=== PATIENT | male | born 1960 | race Caucasian/White ===

== ENCOUNTER 2016-08-15 20:45 | Inpatient (IN) ==
[2016-08-15] MEDS ORDERED: 0.9 % Sodium Chloride 1,000 ML IVC ONE (21:02)
--- NOTE | 2016-08-15 21:07 | Emergency Department Note ---
Overdose - [facility] Narrative Medical decision making narrative: 56-year-old male admitted for baclofen overdose due to concerns for worsening bradycardia or hypoxia given his large amount of baclofen ingested, will admit to stepdown 2N for monitoring. - Differential Diagnosis Likely: cocaine intoxication, suicide attempt by multiple drug overdose, intentional overdose, accidental drug ingestion - Medical Records Medical records reviewed: Yes I reviewed the patient's medical records. - Lab Data Lab results reviewed: Yes I reviewed the patient's lab results. Result diagrams: 08/15/16 21:34 08/15/16 21:34 Lab Results 08/15/16 08/15/16 08/15/16 Range/Units 21:34 21:34 23:21 WBC 11.6 H (4.3-11.1) K/mcL RBC 4.77 (4.19-5.50) M/mcL Hgb 13.9 (12.9-16.9) g/dL Hct 41.7 (37.5-50.1) % MCV 87.4 (83.0-100.0) fL MCH 29.1 (28.0-33.3) pg MCHC 33.3 (31.6-35.5) g/dL RDW 14.1 (11.5-14.5) % Plt Count 334 (140-400) K/mcL MPV 9.6 (9.4-12.4) fL Immature Gran % 0.3 (0-4) % Seg Neutrophils % 66.9 % Lymphocytes % 22.1 % Monocytes % 9.3 % Eosinophils % 1.0 % Basophils % 0.4 % Neutrophils # 7.7 (1.6-8.9) K/mcL Lymphocytes # 2.6 (0.6-4.6) K/mcL Monocytes # 1.1 (0.0-1.3) K/mcL Eosinophils # 0.1 (0.0-0.6) K/mcL Basophils # 0.1 (0.0-0.2) K/mcL Immature Plt Fraction 3.2 (1.1-6.1) % Sodium 136 (136-145) mEq/L Potassium 4.3 (3.5-4.5) mEq/L Chloride 106 (98-109) mEq/L Carbon Dioxide 19 (19-29) mEq/L BUN 36 H (8-26) mg/dL Creatinine 1.38 H (0.72-1.25) mg/dL Est GFR ( Amer) > 60 (> 60) Est GFR (Non-Af Amer) 53 L (> 60) BUN/Creatinine Ratio 26 (6-26) Glucose 195 H (70-99) mg/dL Calculated Osmolality 296 (280-300) Calcium 8.9 (8.6-10.8) mg/dL Total Bilirubin 0.4 (0.2-1.2) mg/dL Direct Bilirubin 0.2 (0.0-0.5) mg/dL Indirect Bilirubin 0.2 (0.0-1.2) mg/dL AST 9 (5-34) Units/L ALT 14 (0-55) Units/L Alkaline Phosphatase 73 (38-126) Units/L Serum Total Protein 7.8 (6.0-8.3) g/dL Albumin 3.8 (3.5-5.0) g/dL Globulin 4.0 H (2.4-3.5) g/dL Albumin/Globulin Ratio 1.0 L (1.1-2.2) Urine Color Yellow (Yellow) Urine Clarity Clear (Clear) Urine pH 6.0 (5.0-8.0) pH Units Ur Specific [place] 1.030 H (1.010-1.025) Urine Protein Negative (Neg-Trace) mg/dL Urine Glucose (UA) >=1000 H (Normal) mg/dL Urine Ketones Negative (Negative) mg/dL Urine Blood Negative (Negative) Urine Nitrite Negative (Negative) Urine Bilirubin Negative (Negative) Urine Urobilinogen Normal (Normal) mg/dL Ur Leukocyte Esterase Negative (Negative) Salicylates < 5.0 L (15-30) mg/dL Urine Opiates Screen (Dxlkds=168) ng/mL Acetaminophen < 1.0 L (10-30) mcg/mL Ur Barbiturates Screen (Cddrdk=514) ng/mL Ur Phencyclidine Scrn (Cutoff=25) ng/mL Ur Amphetamines Screen (Tsryux=6337) ng/mL U Benzodiazepines Scrn (Ahtjkn=999) ng/mL Urine Cocaine Screen (Cutoff= 300) ng/mL U Marijuana (THC) Screen (Cutoff = 50) ng/mL Ethyl Alcohol < 10 (0-10) mg/dL 08/15/16 Range/Units 23:21 WBC (4.3-11.1) K/mcL RBC (4.19-5.50) M/mcL Hgb (12.9-16.9) g/dL Hct (37.5-50.1) % MCV (83.0-100.0) fL MCH (28.0-33.3) pg MCHC (31.6-35.5) g/dL RDW (11.5-14.5) % Plt Count (140-400) K/mcL MPV (9.4-12.4) fL Immature Gran % (0-4) % Seg Neutrophils % % Lymphocytes % % Monocytes % % Eosinophils % % Basophils % % Neutrophils # (1.6-8.9) K/mcL Lymphocytes # (0.6-4.6) K/mcL Monocytes # (0.0-1.3) K/mcL Eosinophils # (0.0-0.6) K/mcL Basophils # (0.0-0.2) K/mcL Immature Plt Fraction (1.1-6.1) % Sodium (136-145) mEq/L Potassium (3.5-4.5) mEq/L Chloride (98-109) mEq/L Carbon Dioxide (19-29) mEq/L BUN (8-26) mg/dL Creatinine (0.72-1.25) mg/dL Est GFR ( Amer) (> 60) Est GFR (Non-Af Amer) (> 60) BUN/Creatinine Ratio (6-26) Glucose (70-99) mg/dL Calculated Osmolality (280-300) Calcium (8.6-10.8) mg/dL Total Bilirubin (0.2-1.2) mg/dL Direct Bilirubin (0.0-0.5) mg/dL Indirect Bilirubin (0.0-1.2) mg/dL AST (5-34) Units/L ALT (0-55) Units/L Alkaline Phosphatase (38-126) Units/L Serum Total Protein (6.0-8.3) g/dL Albumin (3.5-5.0) g/dL Globulin (2.4-3.5) g/dL Albumin/Globulin Ratio (1.1-2.2) Urine Color (Yellow) Urine Clarity (Clear) Urine pH (5.0-8.0) pH Units Ur Specific [place] (1.010-1.025) Urine Protein (Neg-Trace) mg/dL Urine Glucose (UA) (Normal) mg/dL Urine Ketones (Negative) mg/dL Urine Blood (Negative) Urine Nitrite (Negative) Urine Bilirubin (Negative) Urine Urobilinogen (Normal) mg/dL Ur Leukocyte Esterase (Negative) Salicylates (15-30) mg/dL Urine Opiates Screen Negative (Yowbqg=009) ng/mL Acetaminophen (10-30) mcg/mL Ur Barbiturates Screen Negative (Pihilq=494) ng/mL Ur Phencyclidine Scrn Negative (Cutoff=25) ng/mL Ur Amphetamines Screen Negative (Ppzfwg=6631) ng/mL U Benzodiazepines Scrn Negative (Oxwway=319) ng/mL Urine Cocaine Screen Positive H (Cutoff= 300) ng/mL U Marijuana (THC) Screen Negative (Cutoff = 50) ng/mL Ethyl Alcohol (0-10) mg/dL - Radiology Data Radiology results reviewed: Yes I reviewed the patient's radiology results. - EKG Data EKG attestation: Yes I reviewed and interpreted this EKG. EKG shows normal: sinus rhythm Rate: normal (Rate 99 bpm NV 149 QRS [address] segment elevations or depressions normal QRS and QT segments) Interpretation: no acute changes, unchanged when compared to prior tracing (date ) - Core Measures AMI Core Measures Followed: No Measure Exclusions: contraindicated Overdose HPI - General Chief Complaint: ED Psychiatric Symptoms Stated Complaint: SI Time Seen by Provider: 08/15/16 20:52 Source: patient, EMS Limitations: no limitations Nursing Notes Reviewed: Yes Vital Signs Reviewed: Yes - History of Present Illness HPI Narrative: 56-year-old male with intentional ingestion of baclofen he took 43 pills 20 mg strength baclofen that were prescribed by , had previous suicidal thoughts but is never been evaluated by one A before, currently had suicidal ideation finally acted on his plans. After about half an hour he called EMS and reported that he had overdosed. He has some mild nausea but no other symptoms. Denies chest pain abdominal pain, shortness of breath. He does have chronic aches and pains for which she was prescribed baclofen and his right arm and left leg. These are stable. Pt Subjective Complaint: intentional overdose Onset (ago): hour(s) (1hr [employer]END[employer]) Intent: suicide attempt How Overdose Was Discovered: called 911 Associated symptoms: depression Treatments Prior to Arrival: none - Related Data Home Medications Medication Instructions Recorded Confirmed Baclofen 20 mg PO TID 08/30/15 09/30/15 Canagliflozin [Invokana] 300 mg PO DAILY 08/30/15 09/30/15 Cyanocobalamin (Vitamin B-12) 100 mcg PO DAILY 08/30/15 09/30/15 [Vitamin B-12] Ferrous Sulfate 325 mg PO BIDWM 08/30/15 09/30/15 Furosemide [Lasix] 20 mg PO DAILY 08/30/15 09/30/15 GlipiZIDE XL (24 HR) [Glucotrol XL] 10 mg PO DAILY 08/30/15 09/30/15 Lisinopril [Zestril] 10 mg PO DAILY 08/30/15 09/30/15 Magnesium Oxide [Magnesium] 400 mg PO DAILY 08/30/15 09/30/15 Metformin [Glucophage] 1,000 mg PO BIDWM 08/30/15 09/30/15 Paroxetine HCl [Paroxetine] 40 mg PO DAILY 08/30/15 09/30/15 Aspirin [Adult Low Dose Aspirin EC] 81 mg PO DAILY 09/30/15 09/30/15 HYDROcodone/Acet 10/325 mg [[place] 1 tab PO Q6HR PRN 09/30/15 09/30/15 10-325 mg] Pravastatin Sodium [Pravachol] 40 mg PO DAILY 09/30/15 09/30/15 Previous Rx's Medication Instructions Recorded Docusate [Colace] 100 mg PO BID #14 capsule 09/02/15 Gabapentin [Neurontin] 300 mg PO TID #90 capsule 10/10/15 Quetiapine Fumarate [Seroquel] 50 mg PO HS #30 tablet 10/10/15 Sulfamethoxazole/Trimeth DS 1 each PO BID #14 tablet 10/10/15 [Bactrim DS] Allergies Allergy/AdvReac Type Severity Reaction Status Date / Time ibuprofen Allergy Anaphylaxis Verified 08/29/15 17:21 Penicillins Allergy Anaphylaxis Verified 08/29/15 17:21 Review of Systems: All systems were reviewed with historian and negative except as per below, or as documented in the HPI. Constitutional: Denies: fever, chills Eyes: Denies: vision changes, eye pain ENT: Denies: nasal congestion, sore throat CV: Denies: chest pain, palpitations Resp: Denies: cough, dyspnea, wheezes, hemoptysis GI: Reports nausea Denies: abdominal pain, V/D/C, hematochezia, melena Neuro: Denies: CASTELLANOS, weakness, sensory changes, gait difficulty Psych: As if her suicidal ideation, positive for anxiety and depression, All systems ED: reviewed and negative except as stated. Past Medical History - Past Medical History Attestation: Yes The following information was validated with the patient. Source: patient Medical history: Reports: arthritis, dementia, diabetes, osteoporosis, other Surgical history: Reports: non-contributory, orthopedic, other, other Psychiatric history: Reports: no psych history, other - Social History Smoking Status: Unknown if ever smoked Smokeless Tobacco Status: No Alcohol use: Reports: unknown Drug use: Reports: unknown Physical Exam Constitutional: Anxious male appears in no acute distress, mildly tachycardic. HEENT: NCAT, sclera anicteric, PERRLA bilaterally, normal external ears bilaterally, nasal septum nondeviated, average dentition, MMM Neck: normal inspection, neck is supple, trachea midline, no JVD Resp: normal chest inspection, CTA bilaterally, no resp distress, symmetric chest rise CV: Tachycardia, no m/g/r, Pulses +2 Rad, +2 DP/PT bilaterally, no pedal edema GI: normal inspection, Soft, NTND, BS present and normoactive Neuro: A&O3, CN II-XII grossly intact bilaterally, no gross motor or sensory deficits bilaterally MSK: normal inspection, bilateral UE and LE with normal ROM and no deformities Psych: Flat affect, mood congruent, positive for suicidal ideation Skin: No rashes, skin warm, dry, intact - General Limitations: no limitations General appearance: alert, in no apparent distress Course Course Narrative: I spoke with poison control at 21:00 ingestion at 20:00, the patient essentially appears well but did take a very large dose of baclofen, Poison Control Center to get basic labs including Tylenol salicylates EKG which was reviewed and was normal, monitor for bradycardia hypotension and airway protection, possible admission will monitor vitals plan to admit in a few hours after ED observation. - Reevaluation(s) Reevaluation #1: Admitted to medicine service for baclofen overdose, [place] placed, patient with a GCS of 12 [id number] stable vital signs, labwork unremarkable. Vital Signs Temperature 97.9 F 08/15/16 20:47 Pulse Rate 103 08/15/16 20:47 Respiratory Rate 16 08/15/16 20:47 Blood Pressure 110/73 08/15/16 20:47 O2 Sat by Pulse Oximetry 95 08/15/16 20:47 Temperature 97.9 F 08/15/16 20:47 Pulse Rate 77 08/15/16 23:09 Respiratory Rate 18 08/15/16 23:56 Blood Pressure 115/61 08/15/16 23:56 O2 Sat by Pulse Oximetry 95 08/15/16 23:09 Oxygen Delivery Oxygen Delivery Nasal Cannula Critical Care Time Critical Care Time: Yes Total Critical Care Time: 35 Attestation: Critical care performed: Time is exclusive of separately billable procedures. Time includes: direct patient care, patient reassessment, coordination of patient care, interpretation of data (laboratory data, radiology data, and respiratory data), review of patient's medical records, medical consultation and documentation of patient care. Procedures included in critical care time: Procedures excluded from critical care time: Disposition Clinical Impression: Suicidal ideation Baclofen overdose Qualifiers: Encounter type: initial encounter Injury intent: intentional self-harm Qualified Code(s): T42.8X2A - Poisoning by antiparkinsonism drugs and other central muscle-tone depressants, intentional self-harm, initial encounter Disposition: Admitted As Inpatient Condition: Fair Time of Disposition: 23:47 Attestation Statement - Attestation Attestation: I, Saravanan Rubio MD, personally performed a history and physical exam of the patient and discussed their management with the resident. I reviewed the resident's note and agree with the documented findings, medical decision making , and plan of care. 56-year-old male presents to the emergency department after an intentional overdose of baclofen as a suicide attempt. Patient lives alone and has some right-sided weakness due to an old neck injury. He states that he lives in chronic pain and is just tired of the pain and wanted to . He took a large amount of baclofen but then called 911. He denies any prior history of suicide attempts. On examination the patient is a well-developed well-nourished male in no acute distress. He is alert and oriented 3. There is no cyanosis or diaphoresis. He does seem anxious. Breath sounds are clear and equal bilaterally. Heart regular rate and rhythm. Abdomen soft and nontender with normal bowel sounds. Labs reviewed. Urine tox screen positive for cocaine. EKG normal. Dr. Mccauley discussed with poison control. The hospitalist, Dr. Verde, was consulted and accepted admission of the patient.
[2016-08-15 21:41] LABS: Basophils # 0.1 K/mcL (0.0-0.2); Basophils % 0.4 %; Eosinophils # 0.1 K/mcL (0.0-0.6); Hematocrit 41.7 % (37.5-50.1); Hemoglobin 13.9 g/dL (12.9-16.9); Immature Granulocytes % 0.3 % (0-4); Immature Platelets 3.2 % (1.1-6.1); Lymphocytes # 2.6 K/mcL (0.6-4.6); Lymphocytes % 22.1 %; Mean Corpuscular HGB Conc 33.3 g/dL (31.6-35.5); Mean Corpuscular Hemoglobin 29.1 pg (28.0-33.3); Mean Corpuscular Volume 87.4 fL (83.0-100.0); Mean Platelet Volume 9.6 fL (9.4-12.4); Monocytes # 1.1 K/mcL (0.0-1.3); Monocytes % 9.3 %; Neutrophils # 7.7 K/mcL (1.6-8.9); Platelet Count 334 K/mcL (140-400); Red Blood Count 4.77 M/mcL (4.19-5.50); Red Cell Distribution Width 14.1 % (11.5-14.5); Segmented Neutrophils % 66.9 %
[2016-08-15 21:56] LABS: Acetaminophen < 1.0 mcg/mL (10-30); Alanine Aminotransferase 14 Units/L (0-55); Albumin 3.8 g/dL (3.5-5.0); Alkaline Phosphatase 73 Units/L (38-126); Aspartate Amino Transferase 9 Units/L (5-34); BUN/Creatinine Ratio 26 (6-26); Bilirubin,Direct 0.2 mg/dL (0.0-0.5); Bilirubin,Indirect 0.2 mg/dL (0.0-1.2); Bilirubin,Total 0.4 mg/dL (0.2-1.2); Blood Urea Nitrogen 36 mg/dL (8-26); Calcium 8.9 mg/dL (8.6-10.8); Carbon Dioxide 19 mEq/L (19-29); Chloride 106 mEq/L (98-109); Ethanol < 10 mg/dL (0-10); Glucose 195 mg/dL (70-99); Osmolality,Calculated 296 (280-300); Potassium 4.3 mEq/L (3.5-4.5); Salicylate < 5.0 mg/dL (15-30); Sodium 136 mEq/L (136-145); Total Protein 7.8 g/dL (6.0-8.3); eGFR For African Americans > 60 (> 60); eGFR For Non-African Americans 53 (> 60)
[2016-08-15] MEDS ORDERED: Naloxone 0.4 MG/ML INJ IVP PRN (23:19)
[2016-08-15 23:31] LABS: Bilirubin,Urine Negative (Negative); Blood,Urine Negative (Negative); Clarity,Urine Clear (Clear); Color,Urine Yellow (Yellow); Glucose,Urine (UA) >=1000 mg/dL (Normal); Ketones,Urine Negative (Negative); Leukocyte Esterase,Urine Negative (Negative); Nitrite,Urine Negative (Negative); Protein,Urine Negative (Neg-Trace); Urobilinogen,Urine Normal (Normal)
[2016-08-15 23:42] LABS: Amphetamine Screen,Urine Negative ng/mL (Cutoff=1000); Benzodiazepines Screen,Urine Negative ng/mL (Cutoff=200); Cannabinoid Screen,Urine Negative ng/mL (Cutoff = 50); Cocaine Screen,Urine Positive ng/mL (Cutoff= 300); Opiate Screen,Urine Negative ng/mL (Cutoff=300); Phencyclidine Screen,Urine Negative ng/mL (Cutoff=25)
[2016-08-15 23:44] LABS: Barbiturate Screen,Urine Negative ng/mL (Cutoff=200)
--- NOTE | 2016-08-15 23:50 | Internal Med History&Physical ---
Date of Encounter: 08/16/16 Time of Encounter: 23:45 Assessment and Plan (1) Baclofen overdose Current visit: Yes Status: Acute Patient with suicidal ideation with baclofen overdose. Observation per poison control recommendations. Monitor with telemetry. An continuous pulse oximetry. IV hydration. High risk for complications. Qualifiers: Encounter type: initial encounter Injury intent: intentional self-harm Qualified Code(s): T42.8X2A - Poisoning by antiparkinsonism drugs and other central muscle-tone depressants, intentional self-harm, initial encounter (2) Acute kidney injury Current visit: Yes Status: Acute Patient has acute kidney injury. Will hydrate intravenously. Follow renal function closely. (3) Cocaine abuse Current visit: Yes Status: Acute The patient has positive cocaine in his urine drug screen. Will monitor for adverse reactions. Check troponins. (4) Suicidal ideation Current visit: Yes Status: Acute Suspected attempted suicide. We will consult psychiatry after medically stabilized for evaluation (5) Diabetes mellitus, type 2 Current visit: Yes Status: Chronic We will use sliding scale insulin. Monitor blood sugars closely. Qualifiers: Diabetes mellitus complication status: with hyperglycemia Diabetes mellitus prison insulin use: without prison use Qualified Code(s): E11.65 - Type 2 diabetes mellitus with hyperglycemia Internal Medicine - H&P: HPI Chief complaint: Possible suicide attempt with multiple drug overdose Admitted From: Emergency Dept Plans for Post Hospital Care: Transfer Psych Facility History of present illness: Mr. Peña is a 56 year old male with history of diabetes, arthritis and osteoporosis was brought into the ER by EMS after he apparently overdosed on baclofen that he was prescribed for pains involving his right arm and left leg. The patient is currently very somnolent and is unable to provide history. History of difficulty connecting through review of ED records. Apparently patient has had a history of suicidal ideation and seems to have acted on these plans. He had called EMS about half an hour after taking pills reporting his suicide attempt. He apparently took 40 pills of 20 mg strength baclofen. Patient has known me and reported to have any psychiatric illnesses. Poison control was contacted and recommended observing the patient for any complications including hypoxia and bradycardia. Past Med Surg Social Fam HX - Past Medical History Medical history: arthritis, dementia, diabetes, osteoporosis, other Psychiatric history: no psych history, other - Past Surgical History Surgical History: non-contributory, orthopedic, other, other - Social History Smoking Status: Unknown if ever smoked Smokeless Tobacco Status: No Alcohol use: unknown Drug use: unknown - Family History Mother Hx Family Cardiac Disorders: Yes (MYOCARDIAL INFARCTION.) Internal Medicine - H&P: Meds Baclofen 20 mg PO TID 08/30/15 [History] Canagliflozin [Invokana] 300 mg PO DAILY 08/30/15 [History] Cyanocobalamin (Vitamin B-12) [Vitamin B-12] 100 mcg PO DAILY 08/30/15 [History] Ferrous Sulfate 325 mg PO BIDWM 08/30/15 [History] Furosemide [Lasix] 20 mg PO DAILY 08/30/15 [History] GlipiZIDE XL (24 HR) [Glucotrol XL] 10 mg PO DAILY 08/30/15 [History] Lisinopril [Zestril] 10 mg PO DAILY 08/30/15 [History] Magnesium Oxide [Magnesium] 400 mg PO DAILY 08/30/15 [History] Metformin [Glucophage] 1,000 mg PO BIDWM 08/30/15 [History] Paroxetine HCl [Paroxetine] 40 mg PO DAILY 08/30/15 [History] Docusate [Colace] 100 mg PO BID #14 capsule 09/02/15 [Rx] Aspirin [Adult Low Dose Aspirin EC] 81 mg PO DAILY 09/30/15 [History] HYDROcodone/Acet 10/325 mg [[place] 10-325 mg] 1 tab PO Q6HR PRN 09/30/15 [History ] Pravastatin Sodium [Pravachol] 40 mg PO DAILY 09/30/15 [History] Gabapentin [Neurontin] 300 mg PO TID #90 capsule 10/10/15 [Rx] Quetiapine Fumarate [Seroquel] 50 mg PO HS #30 tablet 10/10/15 [Rx] Sulfamethoxazole/Trimeth DS [Bactrim DS] 1 each PO BID #14 tablet 10/10/15 [Rx] Allergies ibuprofen Allergy (Verified 08/29/15 17:21) Anaphylaxis Penicillins Allergy (Verified 08/29/15 17:21) Anaphylaxis ROS unobtainable: due to mental status All Systems PM: A 10-system review of systems was performed and is negative for pertinent findings except as documented above in the HPI. Review of systems: Unable to obtain accurate review of systems due to patient's excessive somnolence and unresponsiveness to questions. - Constitutional Vitals: Temp Pulse Resp BP Pulse Ox 97.9 F 77 16 97/64 95 08/15/16 20:47 08/15/16 23:09 08/15/16 23:09 08/15/16 23:09 08/15/16 23:09 Exam: Somnolent, does not awake to sternal rub or pain. Not answering any questions. - Eye Eye exam: Present: PERRL, conjuntiva pink, sclera anicteric - Neck Neck exam general surgery: Present: supple, trachea midline. Absent: lymphadenopathy - Respiratory Respiratory exam: Present: CTAB. Absent: accessory muscle use, rales, rhonchi, wheezes - Cardiovascular Cardiovascular exam: Present: RRR, +S1, +S2. Absent: diastolic murmur, gallop, rubs, systolic murmur - GI/Abdominal GI/Abdominal exam: Present: normal bowel sounds, soft, no peritoneal signs. Absent: distended, tenderness - Extremities Exam Extremities exam: Present: warm, radial pulses palpable and symetrical. Absent : calf tenderness, cyanotic, pedal edema - Neurological Exam Neurological exam: Present: altered. Absent: alert, oriented X3 Additional comments: Unable to complete neuro examination - Skin Skin exam: Present: dry, intact Internal Med - H&P Results - Labs CBC & Chem 7: 08/15/16 21:34 08/15/16 21:34 Labs: Short CBC 08/15/16 Range/Units 21:34 WBC 11.6 H (4.3-11.1) K/mcL Hgb 13.9 (12.9-16.9) g/dL Hct 41.7 (37.5-50.1) % Plt Count 334 (140-400) K/mcL Neutrophils # 7.7 (1.6-8.9) K/mcL BMP 08/15/16 21:34 Sodium 136 Potassium 4.3 Chloride 106 Carbon Dioxide 19 BUN 36 H Creatinine 1.38 H Glucose 195 H Calcium 8.9 Liver Function 08/15/16 Range/Units 21:34 Total Bilirubin 0.4 (0.2-1.2) mg/dL Direct Bilirubin 0.2 (0.0-0.5) mg/dL AST 9 (5-34) Units/L ALT 14 (0-55) Units/L Alkaline Phosphatase 73 (38-126) Units/L Albumin 3.8 (3.5-5.0) g/dL Urine 08/15/16 Range/Units 23:21 Urine Color Yellow (Yellow) Urine Clarity Clear (Clear) Urine pH 6.0 (5.0-8.0) pH Units Ur Specific [place] 1.030 H (1.010-1.025) Urine Protein Negative (Neg-Trace) mg/dL Urine Glucose (UA) >=1000 H (Normal) mg/dL - EKG Data EKG shows normal: sinus rhythm - EKG Data Interpretation IM: normal EKG - Attending Attestation This document has been at least partially created by [email or web address] voice recognition technology by Dr. Gonzalez. Errors in grammar, wording or other phrases may exist. If errors are found after the documentation is signed, they will be addressed individually in the addendum section of this document when appropriate.
[2016-08-16] MEDS ORDERED: D5% in Water 1,000 ML IV PRN (01:24)
[2016-08-16] MEDS ORDERED: *HR* Dextrose 50 % in Water (Syg) 50 ML SYRINGE IVP PRN (01:24)
[2016-08-16] MEDS ORDERED: Dextrose Gel 15 GM PO PRN ×2 (01:24)
[2016-08-16] MEDS: 0.9 % Sodium Chloride 1,000 ML IVC SCH ×3 (01:40→19:56)
[2016-08-16 03:13] LABS: Basophils # 0.1 K/mcL (0.0-0.2); Basophils % 0.5 %; Eosinophils # 0.1 K/mcL (0.0-0.6); Eosinophils % 1.4 %; Hemoglobin 13.5 g/dL (12.9-16.9); Immature Granulocytes % 0.3 % (0-4); Lymphocytes # 1.8 K/mcL (0.6-4.6); Lymphocytes % 19.4 %; Mean Corpuscular HGB Conc 32.1 g/dL (31.6-35.5); Mean Corpuscular Hemoglobin 28.4 pg (28.0-33.3); Mean Corpuscular Volume 88.4 fL (83.0-100.0); Mean Platelet Volume 9.7 fL (9.4-12.4); Monocytes # 0.7 K/mcL (0.0-1.3); Monocytes % 7.1 %; Neutrophils # 6.7 K/mcL (1.6-8.9); Platelet Count 305 K/mcL (140-400); Red Blood Count 4.75 M/mcL (4.19-5.50); Red Cell Distribution Width 14.1 % (11.5-14.5); Segmented Neutrophils % 71.3 %
[2016-08-16 03:21] LABS: BUN/Creatinine Ratio 29 (6-26); Blood Urea Nitrogen 35 mg/dL (8-26); Calcium 8.7 mg/dL (8.6-10.8); Carbon Dioxide 19 mEq/L (19-29); Chloride 105 mEq/L (98-109); Glucose 197 mg/dL (70-99); Osmolality,Calculated 291 (280-300); Potassium 4.2 mEq/L (3.5-4.5); Sodium 134 mEq/L (136-145); eGFR For African Americans > 60 (> 60); eGFR For Non-African Americans > 60 (> 60)
[2016-08-16] MEDS: *HR* Heparin 5,000 UNIT/ML VIAL SQ SCH ×2 (06:40→17:52)
[2016-08-16] MEDS: Insulin LISPRO 300 UNITS/3 ML VIAL SQ SCH ×4 (06:40→23:41)
--- NOTE | 2016-08-16 10:02 | Internal Med Progress Note ---
Date of Encounter: 08/16/16 Time of Encounter: 09:10 - Assessment and plan (1) Baclofen overdose Current Visit: Yes Status: Acute Assessment and plan: Depressed mental status secondary to baclofen toxicity continue IV fluids closely monitor mental status Patient had one episode of witnessed tonic clonic seizure like activity which subsided spontaneously Will closely monitor, Ativan 1mg IV q6h prn for seizures continue telemonitoring, pulse ox f/u ABG patient is at high risk of intubation for airway protection. Qualifiers: Encounter type: initial encounter Injury intent: intentional self-harm Qualified Code(s): T42.8X2A - Poisoning by antiparkinsonism drugs and other central muscle-tone depressants, intentional self-harm, initial encounter (2) Cocaine abuse Current Visit: Yes Status: Acute (3) Acute kidney injury Current Visit: Yes Status: Resolved Assessment and plan: Resolved continue IV fluids monitor renal function closely (4) Suicidal ideation Current Visit: Yes Status: Acute Assessment and plan: Will consult psychiatry once patient's mental status improves (5) Diabetes mellitus, type 2 Current Visit: Yes Status: Chronic Assessment and plan: continue sliding scale insulin monitor fingerstick and blood glucose Qualifiers: Diabetes mellitus complication status: with hyperglycemia Diabetes mellitus ocean transportation intermediary insulin use: without assisted use Qualified Code(s): E11.65 - Type 2 diabetes mellitus with hyperglycemia (6) DVT prophylaxis Current Visit: No Status: Acute Assessment and plan: Heparin SQ - Subjective Interval history: Patient is a 56y/o male admitted for Baclofen overdose as a suicide attempt along with positive cocaine toxicity. Patient seen and examined at bedside. Reported to have a tonic clonic seizure like activity this morning. I saw the patient after his seizure episode and he appears to be in post-ictal state. Not responsive to painful stimuli at this time. Repeat Vitals within acceptable range. Will obtain ABG. Will closely monitor, if mental status does not improve, may need to intubate for airway protection. - Constitutional Vitals: Temp Pulse Resp BP Pulse Ox 97.6 F 80 16 115/73 90 L 08/16/16 07:30 08/16/16 09:34 08/16/16 09:34 08/16/16 09:34 08/16/16 09:34 General appearance: Present: A&O X 0, obese (unresponsive, sedated) - Head Head exam: Present: atraumatic, normocephalic - Eye Eye exam: Present: normal appearance, conjuntiva pink, sclera anicteric Pupils: Present: miosis, PERRL - Respiratory Respiratory exam: Absent: respiratory distress, wheezes (coarse breath sounds) - Cardiovascular Cardiovascular exam: Present: RRR, +S1, +S2 - GI/Abdominal GI/Abdominal exam: Present: normal bowel sounds, soft. Absent: distended, tenderness - Extremities Exam Extremities exam: Present: warm, radial pulses palpable and symetrical. Absent : pedal edema, tenderness Internal Medicine: Result - Labs CBC & Chem 7: 08/16/16 02:34 08/16/16 02:34 Labs: Short CBC 08/16/16 Range/Units 02:34 WBC 9.4 (4.3-11.1) K/mcL Hgb 13.5 (12.9-16.9) g/dL Hct 42.0 (37.5-50.1) % Plt Count 305 (140-400) K/mcL Neutrophils # 6.7 (1.6-8.9) K/mcL BMP 08/16/16 02:34 Sodium 134 L Potassium 4.2 Chloride 105 Carbon Dioxide 19 BUN 35 H Creatinine 1.20 Glucose 197 H Calcium 8.7 Cardiac Enzymes 08/16/16 08/16/16 Range/Units 02:34 08:26 Troponin I 0.00 0.00 (0-0.03) ng/mL Consult Discharge Plan - Plan Referrals: NO,PCP [Primary Care Provider] -
[2016-08-16 10:09] LABS: ABG Base Excess -4.7 mEq/L (-2.0 to 3.0); ABG HCO3 22.5 mEQ/L (21-27); ABG Oxygen Saturation 94 % (95-98); ABG PCO2 49 mmHg (35-45); ABG PH 7.27 pH Units (7.32-7.45); ABG PO2 83 mmHg (85-104); Blood Gas FiO2 40 %
[2016-08-16] MEDS ORDERED: Propofol 500 MG/50 ML INFUS..BTL ONE (10:53)
--- NOTE | 2016-08-16 11:30 | Procedure Note ---
Date of procedure: 08/16/16 Pre-op diagnosis: Altered mental status Post-op diagnosis: same Procedure: I was called to see this patient with alter mental status and drug overdose not protecting his airway and when I arrived respiratory therapist was at the bedside and with a Glideoscope patient was intubated with the first attempt and ET tube visualized passing several vocal cords with confirmation of color change in the capnometer as well as auscultation bilaterally and then finally with chest x-ray. The patient tolerated procedure without immediate complications. ET tube size 7.5 at level of 24 at the lips. Anesthesia: IV sedation (Propofol 30 mL) Surgeon: Candida Villalpando Estimated blood loss (cc): 0 Disposition: ICU
--- NOTE | 2016-08-16 11:50 | Pulmonology Consult Note ---
<Luis Daniel Mcnulty - Last Filed: 08/16/16 14:57> Date of Encounter: 08/16/16 Time of Encounter: 11:35 Assessment and Plan (1) Acute respiratory failure Current Visit: Yes Status: Acute Acute respiratory failure secondary to baclofen toxicity and seizure like activity. Patient with intentional overdose. Baclofen, took 43 20mg pills. Time of intoxication was approximately 8 PM on 08/15/2016 Patient had seizure activity while on [place]. The seizure activity was witnessed, and subsided on its own. Described as tonic clonic jerking movements. He became acutely hypoxic with the seizure like activity. It was determined that his airway was not protected as well. He was intubated and transferred to the ICU. Initially there was no sedation as he was comatose, however he began to wake up and propofol was started as patient was trying to pull out his ET tube. Poison control was contacted while patient was in the ED and recommended getting Tylenol levels, salicylate level, an EKG (which was interpreted by ED physician as normal). and to monitor for bradycardia, hypotension, and protection of airway. Salicylates were less than 5, acetaminophen was less than 1. Renal function initially showed some mild acute kidney injury with a creatinine of 1.38 on admission last evening, however this morning's creatinine is back down to normal limits at 1.2. -Intubated and sedated with propofol -Titrate O2 to maintain oxygen saturation greater than 88% -wean FI02 as tolerated -bronchodilators -continue IV fluids NS@100ml/hr -Ativan 1mg IV q6h prn for seizures -Monitor electrolytes, renal function daily -continuous tele-monitoring, continuous pulse oximetry -serial ABG's -will consult psychiatry when appropriate -POC Accu checks and insulin low dose correction sliding scale -G.I. prophylaxis with comics -DVT prophylaxis with subcutaneous heparin Qualifiers: Respiratory failure complication: unspecified whether with hypoxia or hypercapnia Qualified Code(s): J96.00 - Acute respiratory failure, unspecified whether with hypoxia or hypercapnia (2) Baclofen overdose Current Visit: Yes Status: Acute Qualifiers: Encounter type: initial encounter Injury intent: intentional self-harm Qualified Code(s): T42.8X2A - Poisoning by antiparkinsonism drugs and other central muscle-tone depressants, intentional self-harm, initial encounter (3) Suicidal ideation Current Visit: Yes Status: Acute (4) Chronic pain associated with significant psychosocial dysfunction Current Visit: Yes Status: Chronic (5) Cocaine abuse Current Visit: Yes Status: Acute (6) Seizure-like activity Current Visit: Yes Status: Acute (7) DVT prophylaxis Current Visit: No Status: Acute History of Present Illness Consult date: 08/16/16 Requesting physician: Valerie Banuelos Reason for consult: other (acute respiratory failure) Chief complaint: Intentional overdose History of present illness: 56-year-old male with intentional ingestion of baclofen he took 43 pills 20 mg strength baclofen. He has a history significant for diabetes type 2, cervical disc disease status post stabilization procedures with residual cervical spine stenosis, degenerative disc disease with lumbar spinal stenosis, gait instability, right upper extremity flexion deformity, chronic pain disorder. Patient is currently intubated, and therefore this HPI is being written from previous provider documentation and ancillary staff reports.. He has previously been hospitalized for suicide attempts. He has had previous suicidal thoughts currently had suicidal ideation finally acted on his plans. After about half an hour he called EMS and reported that he had overdosed. Per the ED note, patient has chronic pain and is tired of the pain and wanted to . This is what he told the ED provider. In the emergency department poison control was contacted. They recommended basic labs including Tylenol, salicylates, EKG, monitor for bradycardia, hypotension and airway protection. He was washed in the ED for a few hours, and it was decided to admit the patient to 2 [facility]. He has had tonic clonic seizure like activity on 2N and had an absent gag reflex. It was decided to intubate patient to protect his airway and he was transferred to the ICU. His urine toxic rain was positive for cocaine. Past Med Surg Social Fam HX - Past Medical History Medical history: arthritis, dementia, diabetes, osteoporosis, other Psychiatric history: no psych history, other - Past Surgical History Surgical History: non-contributory, orthopedic, other, other - Social History Smoking Status: Unknown if ever smoked Smokeless Tobacco Status: No Alcohol use: unknown Drug use: unknown - Family History Mother Hx Family Cardiac Disorders: Yes (MYOCARDIAL INFARCTION.) Medications and Allergies Baclofen 20 mg PO QPM 08/30/15 [History] Canagliflozin [Invokana] 300 mg PO DAILY 08/30/15 [History] Cyanocobalamin (Vitamin B-12) [Vitamin B-12] 100 mcg PO DAILY 08/30/15 [History] Ferrous Sulfate 325 mg PO BIDWM 08/30/15 [History] Furosemide [Lasix] 20 mg PO DAILY 08/30/15 [History] GlipiZIDE XL (24 HR) [Glucotrol XL] 10 mg PO BID 08/30/15 [History] Lisinopril [Zestril] 10 mg PO DAILY 08/30/15 [History] Magnesium Oxide [Magnesium] 400 mg PO DAILY 08/30/15 [History] Metformin [Glucophage] 1,000 mg PO BIDWM 08/30/15 [History] Paroxetine HCl [Paroxetine] 40 mg PO DAILY 08/30/15 [History] Docusate [Colace] 100 mg PO BID #14 capsule 09/02/15 [Rx] Aspirin [Adult Low Dose Aspirin EC] 81 mg PO DAILY 09/30/15 [History] Baclofen [Lioresal] 10 mg PO QAM 08/16/16 [History] Gabapentin [Neurontin] 800 mg PO QID 08/16/16 [History] Linagliptin [Tradjenta] 5 mg PO DAILY 08/16/16 [History] Lovastatin 40 mg PO HS 08/16/16 [History] Allergies ibuprofen Allergy (Verified 08/16/16 14:04) Anaphylaxis Penicillins Allergy (Verified 08/16/16 14:04) Anaphylaxis ROS unobtainable: due to mental status All Systems: A 10-system review of systems was performed and is negative for pertinent findings except as documented above in the HPI. Physical Examination Vital Signs: Vital Signs, Last 4 Hours Pulse Resp BP Pulse Ox 08/16/16 10:32 70 16 101/54 93 L 08/16/16 10:00 85 16 104/61 93 L 08/16/16 09:34 80 16 115/73 90 L 08/16/16 09:01 96 16 129/70 95 08/16/16 08:30 15 107/56 97 08/16/16 08:00 57 13 115/59 97 General appearance: comatose, other (Intubated and comatose) Eyes: nonicteric ENT: oropharynx dry Neck: supple Effort: other (Integrated sedated) Auscultation: bilateral: rhonchi Gastrointestinal: normoactive bowel sounds Extremities: no cyanosis, no edema, no clubbing unable to assess due to mental status Results - Laboratory Findings CBC and BMP: 08/16/16 02:34 08/16/16 02:34 ABG ABG pH 7.27 pH Units (7.32-7.45) L 08/16/16 09:57 ABG pCO2 49 mmHg (35-45) H 08/16/16 09:57 ABG pO2 83 mmHg (85-104) L 08/16/16 09:57 ABG O2 Saturation 94 % (95-98) L 08/16/16 09:57 Abnormal lab findings: Abnormal lab results ABG pH 7.27 pH Units (7.32-7.45) L 08/16/16 09:57 ABG pCO2 49 mmHg (35-45) H 08/16/16 09:57 ABG pO2 83 mmHg (85-104) L 08/16/16 09:57 ABG O2 Saturation 94 % (95-98) L 08/16/16 09:57 ABG Base Excess -4.7 mEq/L (-2.0 to 3.0) L 08/16/16 09:57 Sodium 134 mEq/L (136-145) L 08/16/16 02:34 BUN 35 mg/dL (8-26) H 08/16/16 02:34 BUN/Creatinine Ratio 29 (6-26) H 08/16/16 02:34 Glucose 197 mg/dL (70-99) H 08/16/16 02:34 POC Glucose 167 (58-89) H 08/16/16 01:23 Globulin 4.0 g/dL (2.4-3.5) H 08/15/16 21:34 Albumin/Globulin Ratio 1.0 (1.1-2.2) L 08/15/16 21:34 Ur Specific [place] 1.030 (1.010-1.025) H 08/15/16 23:21 Urine Glucose (UA) >=1000 mg/dL (Normal) H 08/15/16 23:21 Salicylates < 5.0 mg/dL (15-30) L 08/15/16 21:34 Acetaminophen < 1.0 mcg/mL (10-30) L 08/15/16 21:34 Urine Cocaine Screen Positive ng/mL (Cutoff= 300) H 08/15/16 23:21 - Clinical Findings Intake & Output: Intake & Output 08/15/16 08/16/16 08/16/16 23:59 07:59 15:59 Intake Total 1000 / 1000 Output Total 1100 / 1100 250 / 250 Balance -1100 / -1100 750 / 750 Weight 115 kg Consult Discharge Plan - Plan Referrals: NO,PCP [Primary Care Provider] - <Candida Villalpando M - Last Filed: 08/16/16 20:03> All Systems: A 10-system review of systems was performed and is negative for pertinent findings except as documented above in the HPI. Physical Examination Vital Signs: Vital Signs, Last 4 Hours Pulse Resp BP Pulse Ox 08/16/16 18:00 84 18 144/84 100 08/16/16 17:40 17 144/84 99 08/16/16 17:00 76 18 150/75 100 08/16/16 16:00 91 14 141/80 100 08/16/16 15:38 14 144/84 100 Ventilator Settings Ventilator Settings: Ventilator Settings, Last 8 Hours Ventilator Mode VC+ Ventilator Mode VC+ Ventilator Mode VC+ Ventilator Mode VC+ Ventilator Mode VC+ Ventilator Mode VC+ Ventilator Mode VC+ Ventilator Mode VC+ Ventilator Mode VC+ Ventilator Tidal Volume 450 Setting Ventilator Tidal Volume 450 Setting Ventilator Tidal Volume 450 Setting Ventilator Tidal Volume 450 Setting Ventilator Tidal Volume 450 Setting Ventilator Tidal Volume 450 Setting Ventilator Tidal Volume 450 Setting Ventilator Tidal Volume 450 Setting Ventilator Tidal Volume 450 Setting Ventilator Respiratory Rate 14 Setting Ventilator Respiratory Rate 14 Setting Ventilator Respiratory Rate 14 Setting Ventilator Respiratory Rate 14 Setting Ventilator Respiratory Rate 14 Setting Ventilator Respiratory Rate 14 Setting Ventilator Respiratory Rate 14 Setting Ventilator Respiratory Rate 14 Setting Ventilator Respiratory Rate 14 Setting Actual Respiratory Rate 14 Actual Respiratory Rate 17 Actual Respiratory Rate 12 Actual Respiratory Rate 14 Actual Respiratory Rate 14 Actual Respiratory Rate 17 Actual Respiratory Rate 14 Actual Respiratory Rate 20 Positive End Expiratory 5 Pressure Positive End Expiratory 5 Pressure Positive End Expiratory 5 Pressure Positive End Expiratory 5 Pressure Positive End Expiratory 5 Pressure Positive End Expiratory 5 Pressure Positive End Expiratory 5 Pressure Positive End Expiratory 5 Pressure Positive End Expiratory 5 Pressure Peak Inspiratory Airway 18 Pressure Peak Inspiratory Airway 15 Pressure Peak Inspiratory Airway 18 Pressure Peak Inspiratory Airway 18 Pressure Peak Inspiratory Airway 20 Pressure Peak Inspiratory Airway 15 Pressure Peak Inspiratory Airway 18 Pressure Peak Inspiratory Airway 21 Pressure Results - Laboratory Findings CBC and BMP: 08/16/16 02:34 08/16/16 02:34 ABG ABG pH 7.33 pH Units (7.32-7.45) 08/16/16 11:54 ABG pCO2 45 mmHg (35-45) 08/16/16 11:54 ABG pO2 387 mmHg (85-104) H 08/16/16 11:54 ABG O2 Saturation 100 % (95-98) H 08/16/16 11:54 Abnormal lab findings: Abnormal lab results ABG pO2 387 mmHg (85-104) H 08/16/16 11:54 ABG O2 Saturation 100 % (95-98) H 08/16/16 11:54 ABG Base Excess -2.4 mEq/L (-2.0 to 3.0) L 08/16/16 11:54 Sodium 134 mEq/L (136-145) L 08/16/16 02:34 BUN 35 mg/dL (8-26) H 08/16/16 02:34 BUN/Creatinine Ratio 29 (6-26) H 08/16/16 02:34 Glucose 197 mg/dL (70-99) H 08/16/16 02:34 POC Glucose 140 (58-89) H 08/16/16 18:42 Globulin 4.0 g/dL (2.4-3.5) H 08/15/16 21:34 Albumin/Globulin Ratio 1.0 (1.1-2.2) L 08/15/16 21:34 Ur Specific [place] 1.030 (1.010-1.025) H 08/15/16 23:21 Urine Glucose (UA) >=1000 mg/dL (Normal) H 08/15/16 23:21 Salicylates < 5.0 mg/dL (15-30) L 08/15/16 21:34 Acetaminophen < 1.0 mcg/mL (10-30) L 08/15/16 21:34 Urine Cocaine Screen Positive ng/mL (Cutoff= 300) H 08/15/16 23:21 - Clinical Findings Intake & Output: Intake & Output 08/16/16 08/16/16 08/16/16 07:59 15:59 23:59 Intake Total 1000 / 1000 100 / 100 Output Total 1100 / 1100 750 / 750 Balance -1100 / -1100 250 / 250 100 / 100 Weight 115 kg 114.7 kg - Attending Attestation I examined this patient and my medical decision-making was reviewed with the TAIL RIPPER/PA/Advanced Practice Nurse/Resident Physician. I agree with the documented findings, disposition and treatment plan as described except to the extent set forth below. Patient seen and examined. Labs, radiology, chart personally reviewed. Agree with resident's history and physical, assessment, plan with following comments: HADOOP DEVELOPER: Patient unresponsive due to his drug overdose and he will need psych consult once he is medically stable. Patient will need sedation and he is at risk of withdrawal. Pulmonary: I was called by Dr. Banuelos to see this patient who doesn't have any gag reflex and not responding stimuli. Patient needed to be intubated for airway protection. He has history of smoking and suspect copd. Patient has thick secretion during intubation and will have him on bronchodilators and need nicotine patch if there is any evidence of withdrawal. Patient will remain intubated on the ventilator until he is more awake and able to protect his airway. Cardiovascular: stable. Need to monitor for any arrythmias and ECG. GI: Nutrition per dietary and GI prophylaxis per routine Heme: DVT prophylaxis per routine ID: patient at risk for aspiration and copd exacerbation. Renal; urine out put and renal funtion reviewed Endorcine: blood glucose is monitored Lines: all lines checked and no evidence of infections Skin: skin care to prevent pressure ulcers per nursing routine care I spent 40 min of Critical Care time with this patient. It involved decision making of high complexity to assess, manipulate, and support vital organ system failure and/or to prevent further life threatening deterioration of the patient' s condition. The time involved in the performance of separately reportable procedures was not counted toward critical care time.
[2016-08-16 12:03] LABS: ABG Base Excess -2.4 mEq/L (-2.0 to 3.0); ABG HCO3 23.7 mEQ/L (21-27); ABG Oxygen Saturation 100 % (95-98); ABG PCO2 45 mmHg (35-45); ABG PH 7.33 pH Units (7.32-7.45); ABG PO2 387 mmHg (85-104); ABG TCO2 25.1 mEq/L (20-26)
[2016-08-16 12:04] LABS: Blood Gas FiO2 100 %
[2016-08-16] MEDS: Ipratropium/Albuterol Neb 3 ML IH SCH ×3 (12:06→20:14)
[2016-08-16] MEDS: *HR* LORazepam 2 MG/ML VIAL IVP PRN (13:02)
[2016-08-16] MEDS: Pantoprazole 40 MG VIAL IVP SCH (14:28)
[2016-08-16] MEDS: Nicotine 14 MG PATCH.TD24 TD SCH (14:28)
[2016-08-16] MEDS: Budesonide/Formoterol 160/4.5 MDI IH SCH (20:15)
[2016-08-16] MEDS: Thiamine (B-1) 100 MG, Folic Acid 1 MG, MVI, adult with vitamin K 10 ML in 0.9 % Sodi... IVPB SCH (21:24)
[2016-08-17] MEDS: Ipratropium/Albuterol Neb 3 ML IH SCH ×7 (00:46→23:25)
[2016-08-17 04:14] LABS: Basophils % 0.2 %; Eosinophils # 0.1 K/mcL (0.0-0.6); Eosinophils % 0.4 %; Hematocrit 40.5 % (37.5-50.1); Immature Granulocytes % 0.4 % (0-4); Lymphocytes # 1.4 K/mcL (0.6-4.6); Lymphocytes % 10.6 %; Mean Corpuscular HGB Conc 32.1 g/dL (31.6-35.5); Mean Corpuscular Volume 90.2 fL (83.0-100.0); Mean Platelet Volume 9.7 fL (9.4-12.4); Monocytes # 1.1 K/mcL (0.0-1.3); Monocytes % 7.9 %; Neutrophils # 10.9 K/mcL (1.6-8.9); Platelet Count 248 K/mcL (140-400); Red Blood Count 4.49 M/mcL (4.19-5.50); Red Cell Distribution Width 14.5 % (11.5-14.5); Segmented Neutrophils % 80.5 %
[2016-08-17 04:26] LABS: BUN/Creatinine Ratio 24 (6-26); Blood Urea Nitrogen 25 mg/dL (8-26); Carbon Dioxide 20 mEq/L (19-29); Chloride 110 mEq/L (98-109); Glucose 181 mg/dL (70-99); Magnesium 1.4 mg/dL (1.6-2.6); Osmolality,Calculated 297 (280-300); Phosphorous 2.8 mg/dL (2.3-4.7); Potassium 4.2 mEq/L (3.5-4.5); Sodium 139 mEq/L (136-145); eGFR For African Americans > 60 (> 60); eGFR For Non-African Americans > 60 (> 60)
[2016-08-17] MEDS: *HR* Heparin 5,000 UNIT/ML VIAL SQ SCH ×2 (05:11→17:34)
[2016-08-17] MEDS: 0.9 % Sodium Chloride 1,000 ML IVC SCH ×2 (05:11→15:25)
[2016-08-17] MEDS: Insulin LISPRO 300 UNITS/3 ML VIAL SQ SCH ×3 (06:05→17:41)
[2016-08-17] MEDS: Nicotine 14 MG PATCH.TD24 TD SCH (09:48)
[2016-08-17] MEDS: Pantoprazole 40 MG VIAL IVP SCH (09:48)
[2016-08-17 10:01] LABS: ABG Base Excess -1.8 mEq/L (-2.0 to 3.0); ABG HCO3 23.1 mEQ/L (21-27); ABG Oxygen Saturation 100 % (95-98); ABG PCO2 39 mmHg (35-45); ABG PH 7.38 pH Units (7.32-7.45); ABG PO2 199 mmHg (85-104); ABG TCO2 24.3 mEq/L (20-26); Blood Gas FiO2 40 %
--- NOTE | 2016-08-17 10:09 | Pulmonology Progress Note ---
<Candida Villalpando M - Last Filed: 08/17/16 12:03> Objective PUL Vital signs: Last Vital Signs Temp 99.3 F 08/17/16 07:47 Pulse 119 08/17/16 10:00 Resp 18 08/17/16 11:16 BP 167/70 08/17/16 11:16 Pulse Ox 99 08/17/16 11:16 Ventilator Settings Ventilator Settings: Ventilator Settings, Last 8 Hours Ventilator Mode VC+ Ventilator Mode VC+ Ventilator Mode CPAP Ventilator Mode VC+ Ventilator Mode CPAP Ventilator Mode VC+ Ventilator Mode CPAP Ventilator Mode CPAP Ventilator Mode VC+ Ventilator Mode VC+ Ventilator Tidal Volume 450 Setting Ventilator Tidal Volume 450 Setting Ventilator Tidal Volume 450 Setting Ventilator Tidal Volume 450 Setting Ventilator Tidal Volume 450 Setting Ventilator Tidal Volume 450 Setting Ventilator Tidal Volume 450 Setting Ventilator Tidal Volume 450 Setting Ventilator Tidal Volume 450 Setting Ventilator Respiratory Rate 14 Setting Ventilator Respiratory Rate 14 Setting Ventilator Respiratory Rate 14 Setting Ventilator Respiratory Rate 14 Setting Ventilator Respiratory Rate 14 Setting Ventilator Respiratory Rate 14 Setting Ventilator Respiratory Rate 14 Setting Ventilator Respiratory Rate 14 Setting Ventilator Respiratory Rate 14 Setting Ventilator Respiratory Rate 14 Setting Actual Respiratory Rate 18 Actual Respiratory Rate 16 Actual Respiratory Rate 14 Actual Respiratory Rate 24 Actual Respiratory Rate 26 Actual Respiratory Rate 19 Actual Respiratory Rate 17 Actual Respiratory Rate 21 Actual Respiratory Rate 23 Actual Respiratory Rate 24 Positive End Expiratory 5 Pressure Positive End Expiratory 5 Pressure Positive End Expiratory 5 Pressure Positive End Expiratory 5 Pressure Positive End Expiratory 5 Pressure Positive End Expiratory 5 Pressure Positive End Expiratory 5 Pressure Positive End Expiratory 5 Pressure Positive End Expiratory 5 Pressure Positive End Expiratory 5 Pressure Peak Inspiratory Airway 16 Pressure Peak Inspiratory Airway 18 Pressure Peak Inspiratory Airway 18 Pressure Peak Inspiratory Airway 20 Pressure Peak Inspiratory Airway 20 Pressure Peak Inspiratory Airway 18 Pressure Peak Inspiratory Airway 10 Pressure Peak Inspiratory Airway 10 Pressure Peak Inspiratory Airway 14 Pressure Results - Laboratory Findings CBC and BMP: 08/17/16 04:00 08/17/16 04:00 ABG ABG pH 7.38 pH Units (7.32-7.45) 08/17/16 09:45 ABG pCO2 39 mmHg (35-45) 08/17/16 09:45 ABG pO2 199 mmHg (85-104) H 08/17/16 09:45 ABG O2 Saturation 100 % (95-98) H 08/17/16 09:45 Abnormal lab findings: Abnormal lab results WBC 13.5 K/mcL (4.3-11.1) H 08/17/16 04:00 Neutrophils # 10.9 K/mcL (1.6-8.9) H 08/17/16 04:00 ABG pO2 199 mmHg (85-104) H 08/17/16 09:45 ABG O2 Saturation 100 % (95-98) H 08/17/16 09:45 Chloride 110 mEq/L (98-109) H 08/17/16 04:00 Glucose 181 mg/dL (70-99) H 08/17/16 04:00 POC Glucose 164 (58-89) H 08/17/16 10:54 Magnesium 1.4 mg/dL (1.6-2.6) L 08/17/16 04:00 Globulin 4.0 g/dL (2.4-3.5) H 08/15/16 21:34 Albumin/Globulin Ratio 1.0 (1.1-2.2) L 08/15/16 21:34 Ur Specific [place] 1.030 (1.010-1.025) H 08/15/16 23:21 Urine Glucose (UA) >=1000 mg/dL (Normal) H 08/15/16 23:21 Salicylates < 5.0 mg/dL (15-30) L 08/15/16 21:34 Acetaminophen < 1.0 mcg/mL (10-30) L 08/15/16 21:34 Urine Cocaine Screen Positive ng/mL (Cutoff= 300) H 08/15/16 23:21 - Clinical Findings Intake & Output: Intake & Output 08/16/16 08/17/16 08/17/16 23:59 07:59 15:59 Intake Total 1200 / 1200 1300 / 1300 100 / 100 Output Total 950 / 950 1325 / 1325 Balance 250 / 250 -25 / -25 100 / 100 Weight 116 kg Consult Discharge Plan - Plan Referrals: NO,PCP [Primary Care Provider] - - Attending Attestation I examined this patient and my medical decision-making was reviewed with the SUPERINTENDENT MARINE/PA/Advanced Practice Nurse/Resident Physician. I agree with the documented findings, disposition and treatment plan as described except to the extent set forth below. Patient seen and examined. Labs, radiology, chart personally reviewed. Agree with resident's history and physical, assessment, plan with following comments: DERMATOLOGIST: Patient does not follows commands, sedated for the ventilator. Pulmonary: Patient failed SBT this morning and suspect this is due to his underlying COPD and medical condition. He still not ready for the extubation. He might benefit from IV steroid, which hopefully it help his copd, possible mild AECOPD, and make it easier to liberate him from ventilator. Cardiovascular: stable GI: Nutrition per dietary and GI prophylaxis per routine Heme: DVT prophylaxis per routine ID: Continue antibiotics and plan to de-escalation Renal; urine out put and renal funtion reviewed Endorcine: blood glucose is monitored Lines: all lines checked and no evidence of infections Skin: skin care to prevent pressure ulcers per nursing routine care <Mike Mccurdy - Last Filed: 08/17/16 13:45> Date of Encounter: 08/17/16 Time of Encounter: 09:40 Assessment and Plan (1) Acute respiratory failure Current Visit: Yes Status: Acute Acute respiratory failure secondary to baclofen toxicity and seizure like activity. Patient with intentional overdose. Baclofen, took 43 20mg pills. Time of intoxication was approximately 8 PM on 08/15/2016 Patient had seizure activity while on 2 [place]. The seizure activity was witnessed, and subsided on its own. Described as tonic-clonic jerking movements. He became acutely hypoxic with the seizure like activity. It was determined that his airway was not protected as well. He was intubated and transferred to the ICU. Initially there was no sedation as he was comatose, however he began to wake up and propofol was started as patient was trying to pull out his ET tube. Poison control was contacted while patient was in the ED and recommended getting Tylenol levels, salicylate level, an EKG (which was interpreted by ED physician as normal), and to monitor for bradycardia, hypotension, and protection of airway. Salicylates were less than 5, acetaminophen was less than 1. DERMATOLOGIST: Patient does not follows commands, sedated for the ventilator. -will consult psychiatry when appropriate -Ativan 1mg IV q6h prn for seizures Pulmonary: Patient failed SBT twice this morning and suspect this is due to his underlying COPD and medical condition. He still not ready for the extubation. He might benefit from IV steroids started today, which hopefully help copd, possible mild AECOPD, and make it easier to liberate him from ventilator. -continuous tele-monitoring, continuous pulse oximetry -serial ABG's -Intubated and sedated with propofol -Titrate O2 to maintain oxygen saturation greater than 88% -wean FI02 as tolerated -bronchodilators -continue IV fluids NS@100ml/hr -started Solu-Medrol 40 mg Q12 hours Cardiovascular: stable GI: Nutrition per dietary and GI prophylaxis per routine - Protonix Heme: DVT prophylaxis per routine -SQ heparin ID: Continue antibiotics and plan to de-escalation Renal: urine output and renal function reviewed-Monitor electrolytes, renal function daily Endocrine: blood glucose is monitored -POC Accu checks and insulin low dose correction sliding scale Lines: all lines checked and no evidence of infections Skin: skin care to prevent pressure ulcers per nursing routine care Qualifiers: Respiratory failure complication: unspecified whether with hypoxia or hypercapnia Qualified Code(s): J96.00 - Acute respiratory failure, unspecified whether with hypoxia or hypercapnia (2) Baclofen overdose Current Visit: Yes Status: Acute Qualifiers: Encounter type: initial encounter Injury intent: intentional self-harm Qualified Code(s): T42.8X2A - Poisoning by antiparkinsonism drugs and other central muscle-tone depressants, intentional self-harm, initial encounter (3) Cocaine abuse Current Visit: Yes Status: Acute (4) Seizure-like activity Current Visit: Yes Status: Acute (5) Suicidal ideation Current Visit: Yes Status: Acute (6) Chronic pain associated with significant psychosocial dysfunction Current Visit: Yes Status: Chronic (7) DVT prophylaxis Current Visit: No Status: Acute Subjective Principal diagnosis: Intentional overdose Interval history: Patient seen examine at bedside. Patient sedated on mechanical ventilation. Patient failed two trials of CPAP this AM. Nursing retrieved thick pink sputum , sending for culture Objective PUL Vital signs: Last Vital Signs Temp 99.3 F 08/17/16 07:47 Pulse 117 08/17/16 09:00 Resp 17 08/17/16 09:33 BP 127/82 08/17/16 09:33 Pulse Ox 100 08/17/16 09:33 General appearance: no acute distress, other (Sedated) Eyes: nonicteric ENT: oropharynx dry Neck: supple Effort: normal, other (Stated on mechanical ventilation) Gastrointestinal: soft, non-tender, non-distended Integumentary: normal Extremities: no cyanosis, no edema, no clubbing Musculoskeletal: no deformities unable to assess due to mental status Ventilator Settings Ventilator Settings: Ventilator Settings, Last 8 Hours Ventilator Mode CPAP Ventilator Mode VC+ Ventilator Mode CPAP Ventilator Mode VC+ Ventilator Mode CPAP Ventilator Mode CPAP Ventilator Mode VC+ Ventilator Mode VC+ Ventilator Mode VC+ Ventilator Mode VC+ Ventilator Mode VC+ Ventilator Tidal Volume 450 Setting Ventilator Tidal Volume 450 Setting Ventilator Tidal Volume 450 Setting Ventilator Tidal Volume 450 Setting Ventilator Tidal Volume 450 Setting Ventilator Tidal Volume 450 Setting Ventilator Tidal Volume 450 Setting Ventilator Tidal Volume 450 Setting Ventilator Tidal Volume 450 Setting Ventilator Tidal Volume 450 Setting Ventilator Respiratory Rate 14 Setting Ventilator Respiratory Rate 14 Setting Ventilator Respiratory Rate 14 Setting Ventilator Respiratory Rate 14 Setting Ventilator Respiratory Rate 14 Setting Ventilator Respiratory Rate 14 Setting Ventilator Respiratory Rate 14 Setting Ventilator Respiratory Rate 14 Setting Ventilator Respiratory Rate 14 Setting Ventilator Respiratory Rate 14 Setting Ventilator Respiratory Rate 14 Setting Actual Respiratory Rate 14 Actual Respiratory Rate 24 Actual Respiratory Rate 26 Actual Respiratory Rate 19 Actual Respiratory Rate 17 Actual Respiratory Rate 21 Actual Respiratory Rate 23 Actual Respiratory Rate 24 Actual Respiratory Rate 22 Actual Respiratory Rate 19 Actual Respiratory Rate 18 Positive End Expiratory 5 Pressure Positive End Expiratory 5 Pressure Positive End Expiratory 5 Pressure Positive End Expiratory 5 Pressure Positive End Expiratory 5 Pressure Positive End Expiratory 5 Pressure Positive End Expiratory 5 Pressure Positive End Expiratory 5 Pressure Positive End Expiratory 5 Pressure Positive End Expiratory 5 Pressure Positive End Expiratory 5 Pressure Peak Inspiratory Airway 18 Pressure Peak Inspiratory Airway 20 Pressure Peak Inspiratory Airway 20 Pressure Peak Inspiratory Airway 18 Pressure Peak Inspiratory Airway 10 Pressure Peak Inspiratory Airway 10 Pressure Peak Inspiratory Airway 14 Pressure Peak Inspiratory Airway 14 Pressure Peak Inspiratory Airway 19 Pressure Peak Inspiratory Airway 19 Pressure Results - Laboratory Findings CBC and BMP: 08/17/16 04:00 08/17/16 04:00 ABG ABG pH 7.38 pH Units (7.32-7.45) 08/17/16 09:45 ABG pCO2 39 mmHg (35-45) 08/17/16 09:45 ABG pO2 199 mmHg (85-104) H 08/17/16 09:45 ABG O2 Saturation 100 % (95-98) H 08/17/16 09:45 Abnormal lab findings: Abnormal lab results WBC 13.5 K/mcL (4.3-11.1) H 08/17/16 04:00 Neutrophils # 10.9 K/mcL (1.6-8.9) H 08/17/16 04:00 ABG pO2 199 mmHg (85-104) H 08/17/16 09:45 ABG O2 Saturation 100 % (95-98) H 08/17/16 09:45 Chloride 110 mEq/L (98-109) H 08/17/16 04:00 Glucose 181 mg/dL (70-99) H 08/17/16 04:00 POC Glucose 183 (58-89) H 08/17/16 05:42 Magnesium 1.4 mg/dL (1.6-2.6) L 08/17/16 04:00 Globulin 4.0 g/dL (2.4-3.5) H 08/15/16 21:34 Albumin/Globulin Ratio 1.0 (1.1-2.2) L 08/15/16 21:34 Ur Specific [place] 1.030 (1.010-1.025) H 08/15/16 23:21 Urine Glucose (UA) >=1000 mg/dL (Normal) H 08/15/16 23:21 Salicylates < 5.0 mg/dL (15-30) L 08/15/16 21:34 Acetaminophen < 1.0 mcg/mL (10-30) L 08/15/16 21:34 Urine Cocaine Screen Positive ng/mL (Cutoff= 300) H 08/15/16 23:21 - Clinical Findings Intake & Output: Intake & Output 08/16/16 08/17/16 08/17/16 23:59 07:59 15:59 Intake Total 1200 / 1200 1300 / 1300 100 / 100 Output Total 950 / 950 1325 / 1325 Balance 250 / 250 -25 / -25 100 / 100 Weight 116 kg
[2016-08-17] MEDS: Budesonide/Formoterol 160/4.5 MDI IH SCH ×2 (11:15→20:19)
[2016-08-17] MEDS ORDERED: Lacri-Lube 3.5 GM TUBE BOTH EYES PRN (15:32)
[2016-08-17] MEDS: Thiamine (B-1) 100 MG, Folic Acid 1 MG, MVI, adult with vitamin K 10 ML in 0.9 % Sodi... IVPB SCH (17:35)
[2016-08-17] MEDS: MethylPREDNISolone 40 MG/ML VIAL IVP SCH (18:08)
[2016-08-17] MEDS: Lacri-Lube 3.5 GM TUBE BOTH EYES SCH ×2 (18:08→21:32)
[2016-08-17] MEDS: Chlorhexidine Rinse 15 ML MOUTHWASH MM SCH (21:32)
[2016-08-17] MEDS: FentaNYL (PF) 1,000 MCG in 0.9 % Sodium Chloride 80 ML IVC SCH (21:56)
[2016-08-18] MEDS: Lacri-Lube 3.5 GM TUBE BOTH EYES SCH ×5 (00:22→20:25)
[2016-08-18] MEDS: Insulin LISPRO 300 UNITS/3 ML VIAL SQ SCH ×5 (00:23→23:43)
[2016-08-18] MEDS: 0.9 % Sodium Chloride 1,000 ML IVC SCH ×2 (01:19→10:48)
[2016-08-18 03:12] LABS: Hematocrit 39.2 % (37.5-50.1); Hemoglobin 12.4 g/dL (12.9-16.9); Mean Corpuscular HGB Conc 31.6 g/dL (31.6-35.5); Mean Corpuscular Hemoglobin 28.9 pg (28.0-33.3); Mean Corpuscular Volume 91.4 fL (83.0-100.0); Mean Platelet Volume 9.9 fL (9.4-12.4); Platelet Count 234 K/mcL (140-400); Red Blood Count 4.29 M/mcL (4.19-5.50); Red Cell Distribution Width 14.5 % (11.5-14.5)
[2016-08-18] MEDS: FentaNYL (PF) 1,000 MCG in 0.9 % Sodium Chloride 80 ML IVC SCH ×3 (03:21→21:17)
[2016-08-18 03:40] LABS: Monocytes # 0.3 K/mcL (0.0-1.3); Neutrophils # 15.7 K/mcL (1.6-8.9)
[2016-08-18 03:41] LABS: BUN/Creatinine Ratio 19 (6-26); Blood Urea Nitrogen 21 mg/dL (8-26); Calcium 9.1 mg/dL (8.6-10.8); Carbon Dioxide 13 mEq/L (19-29); Chloride 112 mEq/L (98-109); Glucose 228 mg/dL (70-99); Osmolality,Calculated 292 (280-300); Platelet Estimate Normal (Normal); Potassium 4.6 mEq/L (3.5-4.5); Sodium 136 mEq/L (136-145); eGFR For African Americans > 60 (> 60); eGFR For Non-African Americans > 60 (> 60)
[2016-08-18] MEDS: Ipratropium/Albuterol Neb 3 ML IH SCH ×5 (03:49→20:14)
[2016-08-18 05:30] LABS: ABG HCO3 22.2 mEQ/L (21-27); ABG Oxygen Saturation 99 % (95-98); ABG PCO2 44 mmHg (35-45); ABG PH 7.31 pH Units (7.32-7.45); ABG PO2 139 mmHg (85-104); ABG TCO2 23.6 mEq/L (20-26)
[2016-08-18 05:32] LABS: Blood Gas FiO2 40 %; Blood Gas PEEP 5 cm H2O; Blood Gas Respiration Rate 14; Blood Gas VT 450 cc
[2016-08-18] MEDS: MethylPREDNISolone 40 MG/ML VIAL IVP SCH ×2 (05:36→18:26)
[2016-08-18] MEDS: *HR* Heparin 5,000 UNIT/ML VIAL SQ SCH ×3 (05:36→21:19)
--- NOTE | 2016-08-18 07:05 | Electrocardiograph Report ---
[address] [place] [address] Test Date: 2016-08-15 Pat Name: Macy Peña Department: 105 Room: [facility] Gender: M [employer] Dean: : 1960 Requested By: Valeriy Mccauley Order Number: [id number] Reading MD: Matteo Gann MD Measurements Intervals [place] Rate: 99 P: 27 [place]: 149 QRS: -4 QRSD: 91 T: 38 QT: 309 QTc: 366 Interpretive Statements SINUS RHYTHM BASELINE ARTIFACT Electronically Signed On 08-18-2016 7:03:13 EST by Matteo Gann MD
--- NOTE | 2016-08-18 07:15 | Electrocardiograph Report ---
[address] [place], [place] [address] Test Date: 2016-08-16 Pat Name: Macy Peña Department: 109 Room: [facility] Gender: M [employer] Teacher: : 1960 Requested By: Valerie Banuelos Order Number: [id number] Reading MD: Matteo Gann MD Measurements Intervals [place] Rate: 67 P: 65 [place]: 176 QRS: 18 QRSD: 92 T: 45 QT: 349 QTc: 365 Interpretive Statements SINUS RHYTHM Electronically Signed On 08-18-2016 7:13:55 EST by Matteo Gann MD
--- NOTE | 2016-08-18 07:25 | Pulmonology Progress Note ---
<Mike Mccurdy - Last Filed: 08/18/16 08:02> Date of Encounter: 08/18/16 Time of Encounter: 07:22 Assessment and Plan (1) Acute respiratory failure Current Visit: Yes Status: Acute Acute respiratory failure secondary to baclofen toxicity and seizure like activity. Patient with intentional overdose. Baclofen, took 43 20mg pills. Time of intoxication was approximately 8 PM on 08/15/2016 Patient noted to have seizure activity while on 2 [place]; this was witnessed, and subsided on its own. Described as tonic-clonic jerking movements. He became acutely hypoxic with the seizure like activity. It was determined that his airway was not protected as well. He was intubated and transferred to the ICU. Initially there was no sedation as he was comatose, however he began to wake up and propofol was started as patient was trying to pull out his ET tube. Poison control was contacted while patient was in the ED and recommended getting Tylenol levels, salicylate level, an EKG (which was interpreted by ED physician as normal), and to monitor for bradycardia, hypotension, and protection of airway. Salicylates were less than 5, acetaminophen was less than 1. BUSINESS PROJECT ANALYST: Patient does not follows commands, sedated for the ventilator. -will consult psychiatry when appropriate -Ativan 1mg IV q6h prn for seizures Pulmonary: Patient failed SBT this morning and suspect this is due to his underlying COPD and medical condition. He still not ready for the extubation. Steroids were started to hopefully help copd, possible mild AECOPD, and make it easier to liberate him from ventilator. -continuous tele-monitoring, continuous pulse oximetry -serial ABG's -Intubated and sedated with propofol -Titrate O2 to maintain oxygen saturation greater than 88% -wean FI02 as tolerated -bronchodilators -IV fluids NS@100ml/hr -has been discontinued, will evaluate to see if patient needs continued fluids. -started Solu-Medrol 40 mg Q12 hours Cardiovascular: stable GI: Nutrition per dietary and GI prophylaxis per routine - Protonix Heme: DVT prophylaxis per routine -SQ heparin ID: Upon reviewing, no anibiotics seen on AUG, with patient's gram positive cocci will consider starting antibiotic coverage.- Vancomycin & Levaquin Renal: urine output and renal function reviewed. Monitor electrolytes, renal function daily Endocrine: POC Accu checks and insulin low dose correction sliding scale Lines: all lines checked and no evidence of infections Skin: skin care to prevent pressure ulcers per nursing routine care Qualifiers: Respiratory failure complication: unspecified whether with hypoxia or hypercapnia Qualified Code(s): J96.00 - Acute respiratory failure, unspecified whether with hypoxia or hypercapnia (2) Baclofen overdose Current Visit: Yes Status: Acute Qualifiers: Encounter type: initial encounter Injury intent: intentional self-harm Qualified Code(s): T42.8X2A - Poisoning by antiparkinsonism drugs and other central muscle-tone depressants, intentional self-harm, initial encounter (3) Cocaine abuse Current Visit: Yes Status: Acute (4) Seizure-like activity Current Visit: Yes Status: Acute (5) Suicidal ideation Current Visit: Yes Status: Acute (6) Chronic pain associated with significant psychosocial dysfunction Current Visit: Yes Status: Chronic (7) DVT prophylaxis Current Visit: No Status: Acute Heparin SQ 5,000units Q12H Subjective Principal diagnosis: Intentional overdose Interval history: Patient seen examine at bedside. Patient sedated on mechanical ventilation. Patient failed/passed trial of CPAP this AM. Nursing retrieved thick sputum per OG, preliminary sputum culture showing many gram positive cocci. Objective PUL Vital signs: Last Vital Signs Temp 98.1 F 08/18/16 04:00 Pulse 83 08/18/16 06:00 Resp 19 08/18/16 06:00 BP 126/68 08/18/16 06:00 Pulse Ox 100 08/18/16 06:00 General appearance: no acute distress (Sedated on mechanical ventilation) Eyes: nonicteric ENT: oropharynx dry Neck: supple, no lymphadenopathy Effort: other (Mechanically ventilated) Auscultation: bilateral: clear, diminished breath sounds Cardiovascular: regular rate and rhythm Gastrointestinal: hypoactive bowel sounds, soft, non-tender, non-distended Integumentary: normal Extremities: no cyanosis, no edema, no clubbing, pink and warm Musculoskeletal: no deformities unable to assess due to mental status Ventilator Settings Ventilator Settings: Ventilator Settings, Last 8 Hours Ventilator Mode VC+ Ventilator Mode VC+ Ventilator Mode VC+ Ventilator Mode VC+ Ventilator Mode A/C Ventilator Mode VC+ Ventilator Tidal Volume 450 Setting Ventilator Tidal Volume 450 Setting Ventilator Tidal Volume 450 Setting Ventilator Tidal Volume 450 Setting Ventilator Tidal Volume 450 Setting Ventilator Tidal Volume 450 Setting Ventilator Respiratory Rate 14 Setting Ventilator Respiratory Rate 14 Setting Ventilator Respiratory Rate 14 Setting Ventilator Respiratory Rate 14 Setting Ventilator Respiratory Rate 14 Setting Ventilator Respiratory Rate 14 Setting Actual Respiratory Rate 18 Actual Respiratory Rate 17 Actual Respiratory Rate 18 Actual Respiratory Rate 19 Actual Respiratory Rate 18 Positive End Expiratory 5 Pressure Positive End Expiratory 5 Pressure Positive End Expiratory 5 Pressure Positive End Expiratory 5 Pressure Positive End Expiratory 5 Pressure Positive End Expiratory 5 Pressure Peak Inspiratory Airway 20 Pressure Peak Inspiratory Airway 18 Pressure Peak Inspiratory Airway 11 Pressure Peak Inspiratory Airway 11 Pressure Peak Inspiratory Airway 12 Pressure Results - Laboratory Findings CBC and BMP: 08/18/16 02:47 08/18/16 02:47 ABG ABG pH 7.31 pH Units (7.32-7.45) L 08/18/16 05:19 ABG pCO2 44 mmHg (35-45) 08/18/16 05:19 ABG pO2 139 mmHg (85-104) H 08/18/16 05:19 ABG O2 Saturation 99 % (95-98) H 08/18/16 05:19 Abnormal lab findings: Abnormal lab results WBC 17.1 K/mcL (4.3-11.1) H 08/18/16 02:47 Hgb 12.4 g/dL (12.9-16.9) L 08/18/16 02:47 Neutrophils # 15.7 K/mcL (1.6-8.9) H 08/18/16 02:47 ABG pH 7.31 pH Units (7.32-7.45) L 08/18/16 05:19 ABG pO2 139 mmHg (85-104) H 08/18/16 05:19 ABG O2 Saturation 99 % (95-98) H 08/18/16 05:19 ABG Base Excess -4.0 mEq/L (-2.0 to 3.0) L 08/18/16 05:19 Potassium 4.6 mEq/L (3.5-4.5) H 08/18/16 02:47 Chloride 112 mEq/L (98-109) H 08/18/16 02:47 Carbon Dioxide 13 mEq/L (19-29) L 08/18/16 02:47 Glucose 228 mg/dL (70-99) H 08/18/16 02:47 POC Glucose 191 (58-89) H 08/18/16 05:28 Magnesium 1.4 mg/dL (1.6-2.6) L 08/17/16 04:00 Globulin 4.0 g/dL (2.4-3.5) H 08/15/16 21:34 Albumin/Globulin Ratio 1.0 (1.1-2.2) L 08/15/16 21:34 Ur Specific Jefferson 1.030 (1.010-1.025) H 08/15/16 23:21 Urine Glucose (UA) >=1000 mg/dL (Normal) H 08/15/16 23:21 Salicylates < 5.0 mg/dL (15-30) L 08/15/16 21:34 Acetaminophen < 1.0 mcg/mL (10-30) L 08/15/16 21:34 Urine Cocaine Screen Positive ng/mL (Cutoff= 300) H 08/15/16 23:21 - Clinical Findings Intake & Output: Intake & Output 08/17/16 08/17/16 08/18/16 15:59 23:59 07:59 Intake Total 415 / 415 1796.2 / 1796.2 Output Total 1625 / 1625 600 / 600 Balance -1210 / -1210 1196.2 / 1196.2 Weight 115.5 kg Consult Discharge Plan - Plan Referrals: NO,PCP [Primary Care Provider] - <Leopoldo Mcclelland W - Last Filed: 08/18/16 13:11> Objective PUL Vital signs: Last Vital Signs Temp 97.5 F L 08/18/16 08:24 Pulse 83 08/18/16 06:00 Resp 15 08/18/16 08:05 BP 94/57 08/18/16 06:43 Pulse Ox 99 08/18/16 08:05 Ventilator Settings Ventilator Settings: Ventilator Settings, Last 8 Hours Ventilator Mode VC+ Ventilator Mode VC+ Ventilator Mode VC+ Ventilator Mode VC+ Ventilator Mode VC+ Ventilator Mode VC+ Ventilator Tidal Volume 450 Setting Ventilator Tidal Volume 450 Setting Ventilator Tidal Volume 450 Setting Ventilator Tidal Volume 450 Setting Ventilator Tidal Volume 450 Setting Ventilator Tidal Volume 450 Setting Ventilator Respiratory Rate 14 Setting Ventilator Respiratory Rate 14 Setting Ventilator Respiratory Rate 14 Setting Ventilator Respiratory Rate 14 Setting Ventilator Respiratory Rate 14 Setting Ventilator Respiratory Rate 14 Setting Actual Respiratory Rate 14 Actual Respiratory Rate 17 Actual Respiratory Rate 18 Actual Respiratory Rate 17 Actual Respiratory Rate 18 Positive End Expiratory 5 Pressure Positive End Expiratory 5 Pressure Positive End Expiratory 5 Pressure Positive End Expiratory 5 Pressure Positive End Expiratory 5 Pressure Positive End Expiratory 5 Pressure Peak Inspiratory Airway 20 Pressure Peak Inspiratory Airway 21 Pressure Peak Inspiratory Airway 20 Pressure Peak Inspiratory Airway 18 Pressure Peak Inspiratory Airway 11 Pressure Results - Laboratory Findings CBC and BMP: 08/18/16 02:47 08/18/16 02:47 ABG ABG pH 7.31 pH Units (7.32-7.45) L 08/18/16 05:19 ABG pCO2 44 mmHg (35-45) 08/18/16 05:19 ABG pO2 139 mmHg (85-104) H 08/18/16 05:19 ABG O2 Saturation 99 % (95-98) H 08/18/16 05:19 Abnormal lab findings: Abnormal lab results WBC 17.1 K/mcL (4.3-11.1) H 08/18/16 02:47 Hgb 12.4 g/dL (12.9-16.9) L 08/18/16 02:47 Neutrophils # 15.7 K/mcL (1.6-8.9) H 08/18/16 02:47 ABG pH 7.31 pH Units (7.32-7.45) L 08/18/16 05:19 ABG pO2 139 mmHg (85-104) H 08/18/16 05:19 ABG O2 Saturation 99 % (95-98) H 08/18/16 05:19 ABG Base Excess -4.0 mEq/L (-2.0 to 3.0) L 08/18/16 05:19 Potassium 4.6 mEq/L (3.5-4.5) H 08/18/16 02:47 Chloride 112 mEq/L (98-109) H 08/18/16 02:47 Carbon Dioxide 13 mEq/L (19-29) L 08/18/16 02:47 Glucose 228 mg/dL (70-99) H 08/18/16 02:47 POC Glucose 191 (58-89) H 08/18/16 05:28 Magnesium 1.4 mg/dL (1.6-2.6) L 08/17/16 04:00 Globulin 4.0 g/dL (2.4-3.5) H 08/15/16 21:34 Albumin/Globulin Ratio 1.0 (1.1-2.2) L 08/15/16 21:34 Ur Specific [place] 1.030 (1.010-1.025) H 08/15/16 23:21 Urine Glucose (UA) >=1000 mg/dL (Normal) H 08/15/16 23:21 Salicylates < 5.0 mg/dL (15-30) L 08/15/16 21:34 Acetaminophen < 1.0 mcg/mL (10-30) L 08/15/16 21:34 Urine Cocaine Screen Positive ng/mL (Cutoff= 300) H 08/15/16 23:21 - Clinical Findings Intake & Output: Intake & Output 08/17/16 08/18/16 08/18/16 23:59 07:59 15:59 Intake Total 415 / 415 1896.2 / 1896.2 Output Total 1625 / 1625 600 / 600 350 / 350 Balance -1210 / -1210 1296.2 / 1296.2 -350 / -350 Weight 115.5 kg - Attending Attestation I examined this patient and my medical decision-making was reviewed with the CLEAN UP PERSON/PA/Advanced Practice Nurse/Resident Physician. I agree with the documented findings, disposition and treatment plan as described except to the extent set forth below. I spent 35min of Critical Care time with this patient. It involved decision making of high complexity to assess, manipulate, and support vital organ system failure and/or to prevent further life threatening deterioration of the patient' s condition. The time involved in the performance of separately reportable procedures was not counted toward critical care time. Patient seen and examined at bedside Labs, radiology, chart personally reviewed. All lines examined without evidence of infection. Neuropsych: Intentional overdose on baclofen with witnessed seizure. sedated with propofol/fentanyl wean as tolerated. PEERL and off sedation moves all exts with equal strength. EEG pending. Poison control notified - supportive care Psych consult when extubated. Pulm: intubated for airway protection. acceptable oxygenation and ventilation Likely COPD at baseline. cont BDs/Steroids Minimal vent settings but mental status precludes CPAP trial . Concern for aspiration pna covered with abx Cards: BP stable on sedation cont to monitor on tele. FEN-GI: Start eneteral feedings. Cont PPi Renal: no JEB follow uop replace lytes. Check CPK. NAGMA noted without JEB ? hyperchloremia ID: Sepsis with concern for aspiration on ABx (ABAD mcdaniels) vanc/levaquin. Cultures pending Heme/Onc: cont DVT prophylaxis Endo: Glucose monitored Integ/MSK: Skin care per ICU protocol CODE:Full (HKPOA Sister Shoshana to be notified)
[2016-08-18] MEDS ORDERED: Vancomycin 1,750 MG in D5% in Water 250 ML IVPB SCH (08:00)
[2016-08-18] MEDS: Budesonide/Formoterol 160/4.5 MDI IH SCH ×2 (08:04→20:14)
[2016-08-18] MEDS: Nicotine 14 MG PATCH.TD24 TD SCH (08:31)
[2016-08-18] MEDS: Pantoprazole 40 MG VIAL IVP SCH (08:31)
[2016-08-18] MEDS: Chlorhexidine Rinse 15 ML MOUTHWASH MM SCH (08:31)
[2016-08-18] MEDS: Levofloxacin 750 MG/150 ML 750 MG/150 ML BAG IVPB SCH (08:32)
[2016-08-18] MEDS: Vancomycin 1,750 MG in D5% in Water 500 ML IVPB SCH ×2 (08:55→21:17)
[2016-08-18] MEDS: Dexmedetomidine HCl 400 MCG/100 ML MLS IVC SCH ×2 (14:22→21:18)
[2016-08-18] MEDS ORDERED: Furosemide 20 MG/2 ML VIAL IVP ONE (16:08)
--- NOTE | 2016-08-18 16:23 | EEG/EMG/Oth Biometrics Report ---
EEG Procedure Report Date of procedure: 08/18/16 EEG Procedure: Routine EEG Procedure Note: Routine EEG Routine 18-channel digital EEG was obtained to rule out any seizure activity or focal abnormalities. FINDINGS: Background rhythm during awake stage shows -organized, well-developed , average voltage 8 to 9 hertz alpha activity in the posterior regions. It blocks with eye opening and it is bilaterally synchronous and symmetrical. No [id number] discharges or any lateralizing abnormalities are seen. Photic stimulation did not produce any abnormalities. Hyperventilation was not performed. No abnormalities were found during the procedure. Intermittent EMG artifacts were seen. Stage II sleep was not achieved. significant amount of beta activity noted throughout the study likely related to the medication of side effects IMPRESSION: This significant amount of beta activity noted throughout this whole study this is nonspecific finding usually associated with medications use , particularly with benzodiazepine or barbiturate use. No epileptiform discharges or any other paroxysmal activities or focal abnormalities seen. Clinical correlation is recommended
[2016-08-18] MEDS: Thiamine (B-1) 100 MG, Folic Acid 1 MG, MVI, adult with vitamin K 10 ML in 0.9 % Sodi... IVPB SCH (18:27)
[2016-08-18 18:58] LABS: BUN/Creatinine Ratio 24 (6-26); Blood Urea Nitrogen 21 mg/dL (8-26); Calcium 9.2 mg/dL (8.6-10.8); Carbon Dioxide 18 mEq/L (19-29); Chloride 108 mEq/L (98-109); Glucose 142 mg/dL (70-99); Osmolality,Calculated 287 (280-300); Potassium 4.6 mEq/L (3.5-4.5); Sodium 136 mEq/L (136-145); eGFR For African Americans > 60 (> 60); eGFR For Non-African Americans > 60 (> 60)
[2016-08-18 18:59] LABS: Magnesium 1.2 mg/dL (1.6-2.6)
[2016-08-18] MEDS: Docusate Oral Soln 100 MG/10 ML UDC GTUBE SCH (21:17)
[2016-08-19] MEDS: Ipratropium/Albuterol Neb 3 ML IH SCH ×7 (00:07→23:43)
[2016-08-19] MEDS: Dexmedetomidine HCl 400 MCG/100 ML MLS IVC SCH ×2 (01:44→04:42)
[2016-08-19 04:36] LABS: ABG Base Excess -5.8 mEq/L (-2.0 to 3.0); ABG HCO3 20.1 mEQ/L (21-27); ABG Oxygen Saturation 94 % (95-98); ABG PCO2 40 mmHg (35-45); ABG PH 7.31 pH Units (7.32-7.45); ABG PO2 77 mmHg (85-104); ABG TCO2 21.3 mEq/L (20-26)
[2016-08-19 04:38] LABS: Blood Gas FiO2 28 %
[2016-08-19] MEDS: MethylPREDNISolone 40 MG/ML VIAL IVP SCH ×2 (05:23→17:39)
[2016-08-19] MEDS: *HR* Heparin 5,000 UNIT/ML VIAL SQ SCH ×3 (05:23→22:15)
[2016-08-19] MEDS: Insulin LISPRO 300 UNITS/3 ML VIAL SQ SCH ×3 (05:24→22:12)
[2016-08-19 06:31] LABS: Basophils % 0.1 %; Hematocrit 39.7 % (37.5-50.1); Hemoglobin 13.1 g/dL (12.9-16.9); Immature Granulocytes % 0.9 % (0-4); Lymphocytes # 0.7 K/mcL (0.6-4.6); Mean Corpuscular Volume 87.8 fL (83.0-100.0); Mean Platelet Volume 10.3 fL (9.4-12.4); Monocytes # 0.5 K/mcL (0.0-1.3); Monocytes % 2.8 %; Platelet Count 225 K/mcL (140-400); Red Blood Count 4.52 M/mcL (4.19-5.50); Red Cell Distribution Width 13.5 % (11.5-14.5); Segmented Neutrophils % 92.2 %
[2016-08-19 06:43] LABS: BUN/Creatinine Ratio 24 (6-26); Blood Urea Nitrogen 25 mg/dL (8-26); Calcium 9.1 mg/dL (8.6-10.8); Carbon Dioxide 16 mEq/L (19-29); Chloride 101 mEq/L (98-109); Glucose 256 mg/dL (70-99); Osmolality,Calculated 287 (280-300); Potassium 4.4 mEq/L (3.5-4.5); Sodium 132 mEq/L (136-145); eGFR For African Americans > 60 (> 60); eGFR For Non-African Americans > 60 (> 60)
--- NOTE | 2016-08-19 07:32 | Pulmonology Progress Note ---
<KrystinLeopoldo W - Last Filed: 08/19/16 12:08> Objective PUL Vital signs: Last Vital Signs Temp 97.7 F 08/19/16 07:11 Pulse 87 08/19/16 05:50 Resp 14 08/19/16 05:50 BP 154/77 08/19/16 05:50 Pulse Ox 95 08/19/16 05:50 Results - Laboratory Findings CBC and BMP: 08/19/16 06:20 08/19/16 06:20 ABG ABG pH 7.31 pH Units (7.32-7.45) L 08/19/16 04:12 ABG pCO2 40 mmHg (35-45) 08/19/16 04:12 ABG pO2 77 mmHg (85-104) L 08/19/16 04:12 ABG O2 Saturation 94 % (95-98) L 08/19/16 04:12 Abnormal lab findings: Abnormal lab results WBC 16.3 K/mcL (4.3-11.1) H 08/19/16 06:20 Neutrophils # 15.0 K/mcL (1.6-8.9) H 08/19/16 06:20 ABG pH 7.31 pH Units (7.32-7.45) L 08/19/16 04:12 ABG pO2 77 mmHg (85-104) L 08/19/16 04:12 ABG HCO3 20.1 mEQ/L (21-27) L 08/19/16 04:12 ABG O2 Saturation 94 % (95-98) L 08/19/16 04:12 ABG Base Excess -5.8 mEq/L (-2.0 to 3.0) L 08/19/16 04:12 Sodium 132 mEq/L (136-145) L 08/19/16 06:20 Carbon Dioxide 16 mEq/L (19-29) L 08/19/16 06:20 Glucose 256 mg/dL (70-99) H 08/19/16 06:20 POC Glucose 254 (58-89) H 08/19/16 05:20 Magnesium 1.2 mg/dL (1.6-2.6) L 08/18/16 18:33 Globulin 4.0 g/dL (2.4-3.5) H 08/15/16 21:34 Albumin/Globulin Ratio 1.0 (1.1-2.2) L 08/15/16 21:34 Ur Specific Fitzwilliam 1.030 (1.010-1.025) H 08/15/16 23:21 Urine Glucose (UA) >=1000 mg/dL (Normal) H 08/15/16 23:21 Salicylates < 5.0 mg/dL (15-30) L 08/15/16 21:34 Acetaminophen < 1.0 mcg/mL (10-30) L 08/15/16 21:34 Urine Cocaine Screen Positive ng/mL (Cutoff= 300) H 08/15/16 23:21 - Clinical Findings Intake & Output: Intake & Output 08/18/16 08/19/16 08/19/16 23:59 07:59 15:59 Intake Total 366.6 / 366.6 1361.2 / 1361.2 Output Total 4050 / 4050 1800 / 1800 Balance -3683.4 / -3683.4 -438.8 / -438.8 Weight 114.623 kg Consult Discharge Plan - Plan Referrals: NO,PCP [Primary Care Provider] - - Attending Attestation I examined this patient and my medical decision-making was reviewed with the HEALTH EDUCATION DIRECTOR/PA/Advanced Practice Nurse/Resident Physician. I agree with the documented findings, disposition and treatment plan as described except to the extent set forth below. Patient seen and examined at bedside Labs, radiology, chart personally reviewed. All lines examined without evidence of infection. Neuropsych: Intentional overdose on baclofen with witnessed seizure. No further episodes of seizure or seizure actitivy on EEG. Now awake and alert following commands. Depression with suicidal intent sitter at bedside. Psych eval once out of ICU Pulm: Extubated yesterday. Cont coverage for aspiration PNA Cards: BP stable on sedation cont to monitor on tele. FEN-GI: ADAT Renal: no JEB good UOP monitor AGMA ID: Sepsis with concern for aspiration on ABx (PCN allegery) vanc/levaquin. Ecoli/Staph in sputum transition to Bactrim tomorrow for 7 day course Heme/Onc: cont DVT prophylaxis Endo: Glucose monitored start Basal insulin after starting PO diet Integ/MSK: Skin care per ICU protocol CODE:Full Stable for transfer to [facility] with sitter and Tele <Mike Mccurdy - Last Filed: 08/19/16 15:05> Date of Encounter: 08/19/16 Time of Encounter: 09:30 Assessment and Plan (1) Acute respiratory failure Current Visit: Yes Status: Acute Acute respiratory failure secondary to baclofen toxicity and seizure like activity. Patient with intentional overdose. Baclofen, took 43 20mg pills. Time of intoxication was approximately 8 PM on 08/15/2016 Patient had witnessed seizure while on 2N which subsided on its own. Described as tonic-clonic jerking movements. He became acutely hypoxic with the seizure like activity; was intubated and transferred to the ICU. Poison control was contacted while patient was in the ED and recommended getting Tylenol levels, salicylate level, an EKG (which was interpreted by ED physician as normal), and to monitor for bradycardia, hypotension, and protection of airway. Salicylates were less than 5, acetaminophen was less than 1. Patient extubated on 08/18, oxygenating well on 2L via NC. Concern for aspiration pneumonia. Sputum culture grew E. coli and S. aureus, both sensitive to bactrim. Plan -Discontinue Levaquin and Vancomycin after today's doses, de-escalate to Bactrim BID for 5 days. -continuous tele-monitoring, continuous pulse oximetry -Titrate O2 to maintain oxygen saturation greater than 88% -Continue bronchodilators -Continue Solu-Medrol 40 mg Q12 hours Patient can be transferred to Med/Surg with telemetry and sitter. Qualifiers: Respiratory failure complication: unspecified whether with hypoxia or hypercapnia Qualified Code(s): J96.00 - Acute respiratory failure, unspecified whether with hypoxia or hypercapnia (2) Baclofen overdose Current Visit: Yes Status: Acute Qualifiers: Encounter type: initial encounter Injury intent: intentional self-harm Qualified Code(s): T42.8X2A - Poisoning by antiparkinsonism drugs and other central muscle-tone depressants, intentional self-harm, initial encounter (3) Cocaine abuse Current Visit: Yes Status: Acute (4) Seizure-like activity Current Visit: Yes Status: Acute Patient had a witnessed seizure on 2N unit. No further seizure activity noted since. IV vitamins switched to PO. EEG completed 08/17/16-significant Beta activity suggestive of Benzodiazipine or Barbiturate use. (5) Suicidal ideation Current Visit: Yes Status: Acute Consult to Psych for examination, further recommendations. Consider transfer to 1A unit. (6) Diabetes mellitus, type 2 Current Visit: Yes Status: Chronic BG trending up On multiple therapies at home with Invokana, Glipizide, Metformin, and Linagliptin. ADA diet started. Accu-checks ACHS Currently on high dose SSI ACHS Basal insulin started at divide dose of levemir, 15units BID. Qualifiers: Diabetes mellitus complication status: with hyperglycemia Diabetes mellitus residential insulin use: without manager long term care use Qualified Code(s): E11.65 - Type 2 diabetes mellitus with hyperglycemia (7) Hypertension Current Visit: Yes Status: Chronic BP and HR trending up today, noted to be on lasix 20mg and lisinopril 10mg daily. Plan to restart home dose lasix tomorrow if remains hemodynamically stable. Initiated Lopressor 12.5mg PO BID, may need to be adjusted. PRN lopressor 5mg IVP Q6H. Qualifiers: Hypertension type: essential hypertension Qualified Code(s): I10 - Essential (primary) hypertension (8) Chronic pain associated with significant psychosocial dysfunction Current Visit: Yes Status: Chronic Gabapentin restarted. (9) Pneumonia Current Visit: Yes Status: Suspected Concern for aspiration pneumonia n the setting of ARF secondary to baclofen OD and witnessed seizure. Sputum culture positive for E. coli and S. aureus. Currently on Levaquin and Vancomycin- transitioning to Bactrim to complete a total 7 day antibiotic course. See complete plan above. Qualifiers: Pneumonia type: aspiration pneumonia Aspiration pneumonia type: unspecified Laterality: left Lung location: lower lobe of lung Qualified Code(s): J69.0 - Pneumonitis due to inhalation of food and vomit (10) DVT prophylaxis Current Visit: No Status: Acute Heparin SQ 5,000units Q8H GI: Nutrition per dietary and GI prophylaxis per routine - Protonix Heme: DVT prophylaxis per routine -SQ heparin Endocrine: POC Accu checks and insulin increased to high dose correction sliding scale. Lines: all lines checked and no evidence of infections Skin: skin care to prevent pressure ulcers per nursing routine care Subjective Principal diagnosis: Intentional overdose Interval history: Patient seen and examined at bedside. Patient extubated yesterday afternoon. He states he was able to cough up a lot of sputum early this morning currently does not feel he has any congestion. Tolerated breakfast well. Objective PUL Vital signs: Last Vital Signs Temp 97.7 F 08/19/16 07:11 Pulse 87 08/19/16 05:50 Resp 14 08/19/16 05:50 BP 154/77 08/19/16 05:50 Pulse Ox 95 08/19/16 05:50 General appearance: no acute distress, alert Eyes: nonicteric ENT: oropharynx moist Neck: supple Effort: normal Auscultation: bilateral: clear Cardiovascular: regular rate and rhythm Gastrointestinal: normoactive bowel sounds, soft, non-tender, non-distended Integumentary: normal Extremities: no cyanosis, no edema, no clubbing, pink and warm, pulses normal, other (Capillary refill less than 2 seconds) Musculoskeletal: no deformities normal mental status, non-focal exam mood appropriate, affect normal Results - Laboratory Findings CBC and BMP: 08/19/16 06:20 08/19/16 06:20 ABG ABG pH 7.31 pH Units (7.32-7.45) L 08/19/16 04:12 ABG pCO2 40 mmHg (35-45) 08/19/16 04:12 ABG pO2 77 mmHg (85-104) L 08/19/16 04:12 ABG O2 Saturation 94 % (95-98) L 08/19/16 04:12 Abnormal lab findings: Abnormal lab results WBC 16.3 K/mcL (4.3-11.1) H 08/19/16 06:20 Neutrophils # 15.0 K/mcL (1.6-8.9) H 08/19/16 06:20 ABG pH 7.31 pH Units (7.32-7.45) L 08/19/16 04:12 ABG pO2 77 mmHg (85-104) L 08/19/16 04:12 ABG HCO3 20.1 mEQ/L (21-27) L 08/19/16 04:12 ABG O2 Saturation 94 % (95-98) L 08/19/16 04:12 ABG Base Excess -5.8 mEq/L (-2.0 to 3.0) L 08/19/16 04:12 Sodium 132 mEq/L (136-145) L 08/19/16 06:20 Carbon Dioxide 16 mEq/L (19-29) L 08/19/16 06:20 Glucose 256 mg/dL (70-99) H 08/19/16 06:20 POC Glucose 254 (58-89) H 08/19/16 05:20 Magnesium 1.2 mg/dL (1.6-2.6) L 08/18/16 18:33 Globulin 4.0 g/dL (2.4-3.5) H 08/15/16 21:34 Albumin/Globulin Ratio 1.0 (1.1-2.2) L 08/15/16 21:34 Ur Specific Fitzwilliam 1.030 (1.010-1.025) H 08/15/16 23:21 Urine Glucose (UA) >=1000 mg/dL (Normal) H 08/15/16 23:21 Salicylates < 5.0 mg/dL (15-30) L 08/15/16 21:34 Acetaminophen < 1.0 mcg/mL (10-30) L 08/15/16 21:34 Urine Cocaine Screen Positive ng/mL (Cutoff= 300) H 08/15/16 23:21 - Clinical Findings Intake & Output: Intake & Output 08/18/16 08/18/16 08/19/16 15:59 23:59 07:59 Intake Total 2123.4 / 2123.4 366.6 / 366.6 1361.2 / 1361.2 Output Total 1150 / 1150 4050 / 4050 1800 / 1800 Balance 973.4 / 973.4 -3683.4 / -3683.4 -438.8 / -438.8 Weight 114.623 kg
[2016-08-19] MEDS ORDERED: Aminoglycoside Consult 1 EACH MC ONE (08:19)
[2016-08-19] MEDS: Nicotine 14 MG PATCH.TD24 TD SCH (08:35)
[2016-08-19] MEDS: Vancomycin 1,750 MG in D5% in Water 500 ML IVPB SCH (08:36)
[2016-08-19] MEDS: Levofloxacin 750 MG/150 ML 750 MG/150 ML BAG IVPB SCH (08:36)
[2016-08-19] MEDS: Pantoprazole 40 MG VIAL IVP SCH (08:37)
[2016-08-19] MEDS: Docusate Oral Soln 100 MG/10 ML UDC GTUBE SCH ×2 (08:37→22:12)
[2016-08-19] MEDS: Gabapentin 400 MG CAPSULE PO SCH ×4 (08:38→22:14)
[2016-08-19] MEDS ORDERED: Magnesium Oxide 400 MG TABLET PO SCH (09:00)
[2016-08-19] MEDS ORDERED: Aspirin Enteric Coated 81 MG Tablet PO SCH (09:00)
[2016-08-19] MEDS ORDERED: Insulin LISPRO 300 UNITS/3 ML VIAL SQ SCH ×4 (09:20→21:00)
[2016-08-19 09:51] LABS: Beta-Hydroxybutyric Acid > 2.00 mmol/L (0.02-0.27)
[2016-08-19] MEDS: Budesonide/Formoterol 160/4.5 MDI IH SCH ×2 (11:22→20:45)
[2016-08-19] MEDS ORDERED: *HR* Metoprolol 5 MG/5 ML VIAL IVP PRN ×2 (12:53→16:14)
[2016-08-19] MEDS: *HR* LORazepam 2 MG/ML VIAL IVP PRN (13:57)
[2016-08-19] MEDS ORDERED: Insulin DETEMIR 100 UNIT/ML X5UNITS SQ SCH (14:00)
[2016-08-19 15:20] LABS: Hemoglobin A1C 7.9 %
[2016-08-19] MEDS ORDERED: *HR* LORazepam 2 MG/ML VIAL IVP PRN (16:14)
[2016-08-19] MEDS ORDERED: Dextrose Gel 15 GM PO PRN ×2 (16:14)
[2016-08-19] MEDS ORDERED: Dexmedetomidine HCl 400 MCG/100 ML MLS IVC SCH (16:14)
[2016-08-19] MEDS ORDERED: D5% in Water 1,000 ML IV PRN (16:14)
[2016-08-19] MEDS ORDERED: *HR* Dextrose 50 % in Water (Syg) 50 ML SYRINGE IVP PRN (16:14)
[2016-08-19] MEDS ORDERED: Naloxone 0.4 MG/ML INJ IVP PRN (16:14)
--- NOTE | 2016-08-19 16:23 | Consult Note ---
Date of Encounter: 08/19/16 Time of Encounter: 15:45 Assessment & Recommendation (1) Baclofen overdose Current visit: Yes Status: Acute Qualifiers: Encounter type: initial encounter Injury intent: intentional self-harm Qualified Code(s): T42.8X2A - Poisoning by antiparkinsonism drugs and other central muscle-tone depressants, intentional self-harm, initial encounter (2) Suicide attempt by drug ingestion Current visit: Yes Status: Acute Assessment & Recommendation: Patient attempted suicide by overdosing on baclofen for the second time, he needed intensive care treatment to medically stabilize him. Patient is showing poor insight and judgment and at this time I recommend hospitalization in the psychiatric unit under involuntary commitment for further treatment and evaluation. Qualifiers: Encounter type: subsequent encounter Qualified Code(s): T50.902D - Poisoning by unspecified drugs, medicaments and biological substances, intentional self-harm, subsequent encounter History of Present Illness Patient: new to practice Requesting Physician: Valerie Banuelos MD Reason for consult: Overdose, suicide attempts History of present illness: Mr. Peña is a 56 year old male admitted for evaluation and treatment of overdose on baclofen in a suicide attempt. Psychiatry was consulted to evaluate after extubation and medical stabilization. CC: Valerie Banuelos MD Past Med Surg Social Fam HX - Past Medical History Medical history: arthritis, dementia, diabetes, osteoporosis, other - Past Surgical History Surgical History: non-contributory, orthopedic, other, other - Social History Smoking Status: Unknown if ever smoked Smokeless Tobacco Status: No Alcohol use: unknown Drug use: unknown - Family History Mother Hx Family Cardiac Disorders: Yes (MYOCARDIAL INFARCTION.) Medications & Allergies Baclofen 20 mg PO QPM 08/30/15 [History] Canagliflozin [Invokana] 300 mg PO DAILY 08/30/15 [History] Cyanocobalamin (Vitamin B-12) [Vitamin B-12] 100 mcg PO DAILY 08/30/15 [History] Ferrous Sulfate 325 mg PO BIDWM 08/30/15 [History] Furosemide [Lasix] 20 mg PO DAILY 08/30/15 [History] GlipiZIDE XL (24 HR) [Glucotrol XL] 10 mg PO BID 08/30/15 [History] Lisinopril [Zestril] 10 mg PO DAILY 08/30/15 [History] Magnesium Oxide [Magnesium] 400 mg PO DAILY 08/30/15 [History] Metformin [Glucophage] 1,000 mg PO BIDWM 08/30/15 [History] Paroxetine HCl [Paroxetine] 40 mg PO DAILY 08/30/15 [History] Docusate [Colace] 100 mg PO BID #14 capsule 09/02/15 [Rx] Aspirin [Adult Low Dose Aspirin EC] 81 mg PO DAILY 09/30/15 [History] Baclofen [Lioresal] 10 mg PO QAM 08/16/16 [History] Gabapentin [Neurontin] 800 mg PO QID 08/16/16 [History] Linagliptin [Tradjenta] 5 mg PO DAILY 08/16/16 [History] Lovastatin 40 mg PO HS 08/16/16 [History] Allergies ibuprofen Allergy (Verified 08/16/16 14:04) Anaphylaxis Penicillins Allergy (Verified 08/16/16 14:04) Anaphylaxis Mental Status Exam Patient orientation: Yes Person, Yes Time, Yes Place Level of alertness: Alert Patient appearance: Appropriate, Unkempt Behavior: cooperative, anxious Psychomotor activity: Normal Eye contact: Minimal Contact Mood description: Depressed, Anxious Affect description: constricted, blunted Speech pattern: Normal rate, Normal rhythm, Normal tone Speech volume: Normal Thought process: Linear, Goal Oriented Thought content: Yes Suicidal ideation, No Homicidal ideation, No Overt delusions Perceptual disturbances: No Auditory hallucinations, No Visual hallucinations Attention span: Unable to Focus Memory description: Grossly Intact Patient reliability: Reliable Historian Intelligence estimate: Average Judgment: Limited Insight: Partial Results - Vital Signs Vital signs: Temp Pulse Resp BP Pulse Ox 99.8 F H 100 19 113/63 97 08/19/16 15:04 08/19/16 14:00 08/19/16 14:00 08/19/16 14:00 08/19/16 14:00 - Labs Labs: Laboratory Last Values WBC 16.3 K/mcL (4.3-11.1) H 08/19/16 06:20 RBC 4.52 M/mcL (4.19-5.50) 08/19/16 06:20 Hgb 13.1 g/dL (12.9-16.9) 08/19/16 06:20 Hct 39.7 % (37.5-50.1) 08/19/16 06:20 MCV 87.8 fL (83.0-100.0) 08/19/16 06:20 MCH 29.0 pg (28.0-33.3) 08/19/16 06:20 MCHC 33.0 g/dL (31.6-35.5) 08/19/16 06:20 RDW 13.5 % (11.5-14.5) 08/19/16 06:20 Plt Count 225 K/mcL (140-400) 08/19/16 06:20 MPV 10.3 fL (9.4-12.4) 08/19/16 06:20 Immature Gran % 0.9 % (0-4) 08/19/16 06:20 Seg Neutrophils % 92.2 % 08/19/16 06:20 Lymphocytes % 4.0 % 08/19/16 06:20 Monocytes % 2.8 % 08/19/16 06:20 Eosinophils % 0.0 % 08/19/16 06:20 Basophils % 0.1 % 08/19/16 06:20 Neutrophils # 15.0 K/mcL (1.6-8.9) H 08/19/16 06:20 Lymphocytes # 0.7 K/mcL (0.6-4.6) 08/19/16 06:20 Monocytes # 0.5 K/mcL (0.0-1.3) 08/19/16 06:20 Eosinophils # 0.0 K/mcL (0.0-0.6) 08/19/16 06:20 Basophils # 0.0 K/mcL (0.0-0.2) 08/19/16 06:20 Platelet Estimate Normal (Normal) 08/18/16 02:47 Immature Plt Fraction 3.2 % (1.1-6.1) 08/15/16 21:34 ABG pH 7.31 pH Units (7.32-7.45) L 08/19/16 04:12 ABG pCO2 40 mmHg (35-45) 08/19/16 04:12 ABG pO2 77 mmHg (85-104) L 08/19/16 04:12 ABG HCO3 20.1 mEQ/L (21-27) L 08/19/16 04:12 ABG Total CO2 21.3 mEq/L (20-26) 08/19/16 04:12 ABG O2 Saturation 94 % (95-98) L 08/19/16 04:12 ABG Base Excess -5.8 mEq/L (-2.0 to 3.0) L 08/19/16 04:12 Respiration Rate 14 08/18/16 05:19 Blood Gas Modality nc 08/19/16 04:12 Inspired O2 28 % 08/19/16 04:12 Tidal Volume 450 cc 08/18/16 05:19 PEEP 5 cm H2O 08/18/16 05:19 Sodium 132 mEq/L (136-145) L 08/19/16 06:20 Potassium 4.4 mEq/L (3.5-4.5) 08/19/16 06:20 Chloride 101 mEq/L (98-109) 08/19/16 06:20 Carbon Dioxide 16 mEq/L (19-29) L 08/19/16 06:20 BUN 25 mg/dL (8-26) 08/19/16 06:20 Creatinine 1.04 mg/dL (0.72-1.25) 08/19/16 06:20 Est GFR ( Amer) > 60 (> 60) 08/19/16 06:20 Est GFR (Non-Af Amer) > 60 (> 60) 08/19/16 06:20 BUN/Creatinine Ratio 24 (6-26) 08/19/16 06:20 Glucose 256 mg/dL (70-99) H 08/19/16 06:20 POC Glucose 340 (58-89) H 08/19/16 11:07 Est Mean Plasma Glucose 180 mg/dl 08/19/16 06:20 Hemoglobin A1c 7.9 % (-5.6) H 08/19/16 06:20 Calculated Osmolality 287 (280-300) 08/19/16 06:20 Lactic Acid 0.9 mmol/L (0.5-2.2) 08/18/16 18:33 Calcium 9.1 mg/dL (8.6-10.8) 08/19/16 06:20 Phosphorus 2.8 mg/dL (2.3-4.7) 08/17/16 04:00 Magnesium 1.2 mg/dL (1.6-2.6) L 08/18/16 18:33 Total Bilirubin 0.4 mg/dL (0.2-1.2) 08/15/16 21:34 Direct Bilirubin 0.2 mg/dL (0.0-0.5) 08/15/16 21:34 Indirect Bilirubin 0.2 mg/dL (0.0-1.2) 08/15/16 21:34 AST 9 Units/L (5-34) 08/15/16 21:34 ALT 14 Units/L (0-55) 08/15/16 21:34 Alkaline Phosphatase 73 Units/L (38-126) 08/15/16 21:34 Creatine Kinase 134 Units/L (30-200) 08/18/16 18:33 Troponin I 0.00 ng/mL (0-0.03) 08/16/16 14:39 Serum Total Protein 7.8 g/dL (6.0-8.3) 08/15/16 21:34 Albumin 3.8 g/dL (3.5-5.0) 08/15/16 21:34 Globulin 4.0 g/dL (2.4-3.5) H 08/15/16 21:34 Albumin/Globulin Ratio 1.0 (1.1-2.2) L 08/15/16 21:34 Beta-Hydroxybutyric Acd > 2.00 mmol/L (0.02-0.27) H 08/19/16 06:20 Urine Color Yellow (Yellow) 08/15/16 23:21 Urine Clarity Clear (Clear) 08/15/16 23:21 Urine pH 6.0 pH Units (5.0-8.0) 08/15/16 23:21 Ur Specific [place] 1.030 (1.010-1.025) H 08/15/16 23:21 Urine Protein Negative mg/dL (Neg-Trace) 08/15/16 23:21 Urine Glucose (UA) >=1000 mg/dL (Normal) H 08/15/16 23:21 Urine Ketones Negative mg/dL (Negative) 08/15/16 23:21 Urine Blood Negative (Negative) 08/15/16 23:21 Urine Nitrite Negative (Negative) 08/15/16 23:21 Urine Bilirubin Negative (Negative) 08/15/16 23:21 Urine Urobilinogen Normal mg/dL (Normal) 08/15/16 23:21 Ur Leukocyte Esterase Negative (Negative) 08/15/16 23:21 Salicylates < 5.0 mg/dL (15-30) L 08/15/16 21:34 Urine Opiates Screen Negative ng/mL (Qsajch=494) 08/15/16 23:21 Acetaminophen < 1.0 mcg/mL (10-30) L 08/15/16 21:34 Ur Barbiturates Screen Negative ng/mL (Siqqxl=722) 08/15/16 23:21 Ur Phencyclidine Scrn Negative ng/mL (Cutoff=25) 08/15/16 23:21 Ur Amphetamines Screen Negative ng/mL (Zzgihv=3298) 08/15/16 23:21 U Benzodiazepines Scrn Negative ng/mL (Bmxeze=635) 08/15/16 23:21 Urine Cocaine Screen Positive ng/mL (Cutoff= 300) H 08/15/16 23:21 U Marijuana (THC) Screen Negative ng/mL (Cutoff = 50) 08/15/16 23:21 Ethyl Alcohol < 10 mg/dL (0-10) 08/15/16 21:34 Consult Discharge Plan - Plan Referrals: NO,PCP [Primary Care Provider] -
--- NOTE | 2016-08-19 19:23 | Event Note ---
Date of Encounter: 08/19/16 Time of Encounter: 15:00 The patient was transferred from the ICU today. I have personally interviewed and examined the patient after transfer. He currently reports no chest pain and shortness of breath. He denies suicidal ideation at this time but reports mild depression. On exam he is awake alert oriented 3, heart is regular S1-S2 lungs are clear abdomen is soft. Plan: Patient was admitted for suicidal ideation and attempt to commit suicide by overdosing on baclofen. She will require psychiatric admission once he is medically clear. We will check blood work tomorrow and if mental status remains close to baseline we will plan for transfer to psychiatry.
[2016-08-19] MEDS ORDERED: Vancomycin 1,750 MG in D5% in Water 500 ML IVPB SCH (21:00)
[2016-08-19] MEDS: Insulin DETEMIR 100 UNIT/ML X5UNITS SQ SCH (22:13)
[2016-08-20] MEDS: Ipratropium/Albuterol Neb 3 ML IH SCH ×6 (03:48→23:57)
[2016-08-20 05:19] LABS: Basophils % 0.1 %; Hematocrit 40.4 % (37.5-50.1); Hemoglobin 13.1 g/dL (12.9-16.9); Immature Granulocytes % 0.5 % (0-4); Lymphocytes # 1.2 K/mcL (0.6-4.6); Lymphocytes % 8.4 %; Mean Corpuscular HGB Conc 32.4 g/dL (31.6-35.5); Mean Corpuscular Hemoglobin 29.6 pg (28.0-33.3); Mean Corpuscular Volume 91.4 fL (83.0-100.0); Mean Platelet Volume 9.8 fL (9.4-12.4); Monocytes # 0.7 K/mcL (0.0-1.3); Monocytes % 5.1 %; Neutrophils # 12.1 K/mcL (1.6-8.9); Platelet Count 244 K/mcL (140-400); Red Blood Count 4.42 M/mcL (4.19-5.50); Segmented Neutrophils % 85.9 %
[2016-08-20 06:01] LABS: BUN/Creatinine Ratio 28 (6-26); Blood Urea Nitrogen 35 mg/dL (8-26); Calcium 9.1 mg/dL (8.6-10.8); Carbon Dioxide 18 mEq/L (19-29); Chloride 101 mEq/L (98-109); Glucose 296 mg/dL (70-99); Osmolality,Calculated 291 (280-300); Sodium 131 mEq/L (136-145); eGFR For African Americans > 60 (> 60); eGFR For Non-African Americans > 60 (> 60)
[2016-08-20] MEDS: *HR* Heparin 5,000 UNIT/ML VIAL SQ SCH ×3 (06:14→22:06)
[2016-08-20] MEDS: MethylPREDNISolone 40 MG/ML VIAL IVP SCH (06:14)
[2016-08-20] MEDS: Budesonide/Formoterol 160/4.5 MDI IH SCH ×2 (07:32→21:42)
[2016-08-20] MEDS: Insulin LISPRO 300 UNITS/3 ML VIAL SQ SCH ×4 (08:05→20:54)
[2016-08-20] MEDS: Aspirin Enteric Coated 81 MG Tablet PO SCH (08:08)
[2016-08-20] MEDS: Docusate Oral Soln 100 MG/10 ML UDC GTUBE SCH ×2 (08:08→20:53)
[2016-08-20] MEDS: Folic Acid 1 MG TABLET PO SCH (08:08)
[2016-08-20] MEDS: Sulfamethoxazole/Trimeth DS 1 EACH TABLET PO SCH ×2 (08:08→20:52)
[2016-08-20] MEDS: Insulin DETEMIR 100 UNIT/ML X5UNITS SQ SCH ×3 (08:09→22:25)
[2016-08-20] MEDS: Magnesium Oxide 400 MG TABLET PO SCH (08:10)
[2016-08-20] MEDS: Gabapentin 400 MG CAPSULE PO SCH ×4 (08:11→20:52)
[2016-08-20] MEDS: CYANOCOBALAMIN PO SCH (08:12)
[2016-08-20] MEDS: Multivit/Ca/Min/Fe/FA 1 TAB TABLET PO SCH (08:13)
[2016-08-20] MEDS: Thiamine (B-1) 100 MG TABLET PO SCH (08:13)
[2016-08-20] MEDS ORDERED: Folic Acid 1 MG TABLET PO SCH (09:00)
[2016-08-20] MEDS ORDERED: Multivit/Ca/Min/Fe/FA 1 TAB TABLET PO SCH (09:00)
[2016-08-20] MEDS ORDERED: Sulfamethoxazole/Trimeth DS 1 EACH TABLET PO SCH (09:00)
[2016-08-20] MEDS ORDERED: Thiamine (B-1) 100 MG TABLET PO SCH (09:00)
--- NOTE | 2016-08-20 09:10 | Event Note ---
Date of Encounter: 08/20/16 Time of Encounter: 09:07 chu seen at the bedside,admitted for suicideal ideation with baclofen overdose, transferred from ICU yesterday. stable today, denies any suicidal ideation today, seen by psych yesterday. plan to transfer to psych today for further management. antibiotics already changed to oral , continue total of 7 days for aspiration pneumonia.
--- NOTE | 2016-08-20 09:52 | Discharge Summary ---
Date of Encounter: 08/20/16 Time of Encounter: 09:44 - Discharge Diagnosis (1) Baclofen overdose Priority: Primary Status: Acute Qualifiers: Encounter type: initial encounter Injury intent: intentional self-harm Qualified Code(s): T42.8X2A - Poisoning by antiparkinsonism drugs and other central muscle-tone depressants, intentional self-harm, initial encounter (2) Seizure-like activity Priority: Secondary Status: Acute (3) Suicidal ideation Priority: Primary Status: Acute (4) Suicide attempt by drug ingestion Priority: Primary Status: Acute Qualifiers: Encounter type: subsequent encounter Qualified Code(s): T50.902D - Poisoning by unspecified drugs, medicaments and biological substances, intentional self-harm, subsequent encounter (5) Aspiration pneumonia Priority: Primary Status: Acute Qualifiers: Aspiration pneumonia type: due to regurgitated food Laterality: unspecified laterality Lung location: unspecified part of lung Qualified Code(s): J69.0 - Pneumonitis due to inhalation of food and vomit - Discharge Medications Home Medications: Baclofen 20 mg PO QPM 08/30/15 [History] Canagliflozin [Invokana] 300 mg PO DAILY 08/30/15 [History] Cyanocobalamin (Vitamin B-12) [Vitamin B-12] 100 mcg PO DAILY 08/30/15 [History] Ferrous Sulfate 325 mg PO BIDWM 08/30/15 [History] Furosemide [Lasix] 20 mg PO DAILY 08/30/15 [History] GlipiZIDE XL (24 HR) [Glucotrol XL] 10 mg PO BID 08/30/15 [History] Lisinopril [Zestril] 10 mg PO DAILY 08/30/15 [History] Magnesium Oxide [Magnesium] 400 mg PO DAILY 08/30/15 [History] Metformin [Glucophage] 1,000 mg PO BIDWM 08/30/15 [History] Paroxetine HCl [Paroxetine] 40 mg PO DAILY 08/30/15 [History] Docusate [Colace] 100 mg PO BID #14 capsule 09/02/15 [Rx] Aspirin [Adult Low Dose Aspirin EC] 81 mg PO DAILY 09/30/15 [History] Baclofen [Lioresal] 10 mg PO QAM 08/16/16 [History] Gabapentin [Neurontin] 800 mg PO QID 08/16/16 [History] Linagliptin [Tradjenta] 5 mg PO DAILY 08/16/16 [History] Lovastatin 40 mg PO HS 08/16/16 [History] Allergies/Adverse Reactions: Allergies ibuprofen Allergy (Verified 08/16/16 14:04) Anaphylaxis Penicillins Allergy (Verified 08/16/16 14:04) Anaphylaxis Date of admission: 08/17/16 15:53 Primary care physician: PCP NO Consults: 08/19/16 16:26 Consult to Relief Docking Master [CONS] Routine Reason for SW Consult: discharge planning, suicide attempt Discharging clinician: Erika Villalba Anticipated date of discharge: 08/20/16 - Patient Status Disposition: Transfer Psychiatric Hosp Condition: Fair Functional capacity at discharge: independent ambulation Overall status at discharge: patient is back to baseline - Discharge Instructions Instructions: Acute Respiratory Distress Syndrome (DC) Follow Up With: Helder Chu MD [Non-Partnered Physician] - - Diet and Activity Activity: resume usual activities as tolerated Diet: advance to your usual diet Interval History: Mr. Peña is a 56 year old male with history of diabetes, arthritis. patient has had a history of suicidal ideation and seems to have acted on these plans. He had called EMS about half an hour after taking pills reporting his suicide attempt. He apparently took 40 pills of 20 mg strength baclofen. Poison control was contacted and recommended observing the patient for any complications including hypoxia and bradycardia. In the floors, chu was noted to have depressed mental status and had tonic- clonic seizure-like activity, he had witnessed seizure while on 2N which subsided on its own. Described as tonic-clonic jerking movements, absent gag reflex, ad hypoxic hence he was intubated for airway protection. Patient was transferred to ICU. He was monitored in ICU and was treated for Acute respiratory failure secondary to baclofen toxicity and seizure like activity. Poison control was contacted while patient was in the ED and recommended getting Tylenol levels, salicylate level, an EKG (which was interpreted by ED physician as normal), and to monitor for bradycardia, hypotension, and protection of airway. Salicylates were less than 5, acetaminophen was less than 1. Patient extubated on 08/18, oxygenating well on 2L via NC. Concern for aspiration pneumonia. Sputum culture grew E. coli and S. aureus, both sensitive to bactrim. was continued on PO bactrim and was transferred to medical floors. He was seen this morning, has been stable and denies any suicidal ideation psych was conuslted and saw the patinet yesterday and is beig transferred to psych floor for further management. Hospital course: Mr. Peña is a 56 year old male Time spent discussing smoking cessation with patient: more than 10 minutes - Time Spent with Patient Total time spent providing and/or coordinating discharge services: Greater than 30 minutes - Constitutional Vitals: Temp Pulse Resp BP Pulse Ox 97.5 F L 84 16 121/77 97 08/20/16 07:25 08/20/16 07:25 08/20/16 07:32 08/20/16 07:25 08/20/16 07:32 General appearance: Present: A&O X 0, obese (unresponsive, sedated) Exam: - Head Head exam: Present: atraumatic, normocephalic - Eye Eye exam: Present: normal appearance, conjuntiva pink, sclera anicteric Pupils: Present: miosis, PERRL - Respiratory Respiratory exam:b/l clear, no added sounds Absent: respiratory distress, wheezes (coarse breath sounds) - Cardiovascular Cardiovascular exam: Present: RRR, +S1, +S2 - GI/Abdominal GI/Abdominal exam: Present: normal bowel sounds, soft. Absent: distended, tenderness - Extremities Exam Extremities exam: Present: warm, radial pulses palpable and symetrical. Absent : pedal edema, tenderness
[2016-08-20] MEDS: predniSONE 20 MG TABLET PO SCH (10:25)
[2016-08-21] MEDS: Ipratropium/Albuterol Neb 3 ML IH SCH ×4 (03:35→15:56)
[2016-08-21] MEDS: *HR* Heparin 5,000 UNIT/ML VIAL SQ SCH ×2 (05:33→17:33)
[2016-08-21 07:33] VITALS: BP 138/82
[2016-08-21] MEDS: Magnesium Oxide 400 MG TABLET PO SCH (07:36)
[2016-08-21] MEDS: predniSONE 20 MG TABLET PO SCH (07:37)
[2016-08-21] MEDS: Sulfamethoxazole/Trimeth DS 1 EACH TABLET PO SCH (07:38)
[2016-08-21] MEDS: Multivit/Ca/Min/Fe/FA 1 TAB TABLET PO SCH (07:39)
[2016-08-21] MEDS: Thiamine (B-1) 100 MG TABLET PO SCH (07:39)
[2016-08-21] MEDS: Folic Acid 1 MG TABLET PO SCH (07:39)
[2016-08-21] MEDS: Gabapentin 400 MG CAPSULE PO SCH ×3 (07:40→17:33)
[2016-08-21] MEDS: Docusate Oral Soln 100 MG/10 ML UDC GTUBE SCH (07:40)
[2016-08-21] MEDS: Aspirin Enteric Coated 81 MG Tablet PO SCH (07:41)
[2016-08-21] MEDS: Insulin LISPRO 300 UNITS/3 ML VIAL SQ SCH ×3 (07:50→17:34)
[2016-08-21] MEDS: CYANOCOBALAMIN PO SCH (07:59)
[2016-08-21] MEDS: Insulin DETEMIR 100 UNIT/ML X5UNITS SQ SCH (09:50)
[2016-08-21] MEDS: Budesonide/Formoterol 160/4.5 MDI IH SCH (11:16)
--- NOTE | 2016-08-21 17:27 | Event Note ---
Date of Encounter: 08/21/16 Time of Encounter: 17:27 Patient was seen at the bedside, denies any complaints. Patient is to be transferred to psych unit today for further management of suicidal ideation. He was discharged yesterday from medical service.
== END 2016-08-21 17:44 | disposition home or self-care (01) | DRG 917 ==
LOC: EMEROO 20:45 → 2NNU 20:45 → ICNU 08-16 11:55 → SUATTDRO 08-17 15:53 → 3ANU 08-19 16:03
PROVIDERS: ADMIT Internal Medicine; ATTEND Internal Medicine Endocrinology, Diabetes & Metabolism

== ENCOUNTER 2016-08-21 16:23 | Inpatient (IN) ==
[2016-08-21] MEDS ORDERED: *HR* LORazepam 2 MG/ML VIAL IM PRN (19:48)
[2016-08-21] MEDS ORDERED: traZODone 50 MG TABLET PO PRN (19:48)
[2016-08-21] MEDS ORDERED: MOM Conc 10 ML UD.LIQ PO PRN (19:48)
[2016-08-21] MEDS ORDERED: *HR* LORazepam 1 MG TABLET PO PRN (19:48)
[2016-08-21] MEDS ORDERED: Haloperidol Lactate 5 MG/ML VIAL IM PRN (19:48)
[2016-08-21] MEDS ORDERED: Mag Hydrox/Al Hydrox/Simeth 30 ML UDC PO PRN (19:48)
[2016-08-21] MEDS ORDERED: hydrOXYzine pamoate 25 MG CAPSULE PO PRN (19:48)
[2016-08-21] MEDS ORDERED: Dextrose Gel 15 GM PO PRN (20:16)
[2016-08-21] MEDS ORDERED: Insulin LISPRO 300 UNITS/3 ML VIAL SQ SCH (21:00)
[2016-08-21] MEDS: Gabapentin 400 MG CAPSULE PO SCH (21:00)
[2016-08-21] MEDS: *HR* GlipiZIDE XL (24 HR) 10 MG TABLET PO SCH (21:00)
[2016-08-21] MEDS: Insulin DETEMIR 100 UNIT/ML X5UNITS SQ SCH (21:00)
[2016-08-21] MEDS: Baclofen 10 MG TABLET PO SCH (21:18)
[2016-08-22] MEDS: Acetaminophen 325 MG TABLET PO PRN ×2 (05:26→18:03)
[2016-08-22] MEDS: *HR* Metformin 500 MG TABLET PO SCH ×2 (08:02→17:03)
[2016-08-22] MEDS: Insulin LISPRO 300 UNITS/3 ML VIAL SQ SCH ×3 (08:03→16:20)
[2016-08-22] MEDS ORDERED: Magnesium Oxide 400 MG TABLET PO SCH (09:00)
[2016-08-22] MEDS ORDERED: (Canagliflozin [Invokana] 300 MG) PO SCH (09:00)
[2016-08-22] MEDS ORDERED: (Linagliptin [Tradjenta] 5 MG) PO SCH (09:00)
[2016-08-22] MEDS ORDERED: Baclofen 10 MG TABLET PO SCH (09:00)
[2016-08-22] MEDS ORDERED: Aspirin Enteric Coated 81 MG Tablet PO SCH (09:00)
[2016-08-22] MEDS ORDERED: CYANOCOBALAMIN 100 MCG PO SCH (09:00)
[2016-08-22] MEDS ORDERED: Furosemide 20 MG TABLET PO SCH (09:00)
[2016-08-22] MEDS ORDERED: (Cyanocobalamin (Vitamin B-12) [Vitamin B-12] 100 MCG PO SCH (09:00)
[2016-08-22] MEDS: *HR* GlipiZIDE XL (24 HR) 10 MG TABLET PO SCH (09:20)
[2016-08-22] MEDS: Insulin DETEMIR 100 UNIT/ML X5UNITS SQ SCH (09:20)
[2016-08-22] MEDS: Gabapentin 400 MG CAPSULE PO SCH ×3 (09:21→17:03)
--- NOTE | 2016-08-22 10:29 | Psychiatry History & Physical ---
Date of Encounter: 08/22/16 Time of Encounter: 10:23 History of Present Illness Patient Stated Chief Complaint: Suicide attempt by overdose Medicare Admission Attestation: For traditional Medicare patients the provided hospital inpatient services are reasonable and necessary and in the case of services not specified as inpatient -only under 42 CFR 419.22 (n), that they are appropriately provided as inpatient services in accordance 42 CFR 412.3. For Critical Access Hospital the patient may reasonably be expected to be discharged or transferred to a hospital within 96 hours after admission to the Critical Access Hospital. Admitted From: Intrahospital Transfer History of Present Illness: Mr. Peña is a 56 year old male admitted [facility] medical [facility] for further psychiatric evaluation and treatment after medical stabilization from overdose on baclofen in a suicide attempt. Patient overdosed on baclofen and a suicide attempt, had respiratory failure and was intubated and extubated. Was seen in the consultation and recommended to be [facility] for further evaluation and treatment. Patient denied any previous psychiatric hospitalization or mental health treatment, he had an overdose in September 2015 and he claimed it was accidental, psychiatry was consulted at that time but he was not admitted. Patient reported to episode of depression and he was prescribed Paxil by his family doctor. Patient is disabled and lives alone. He admitted to using cocaine and marijuana on and off. Past Med Surg Social Fam HX - Past Medical History Medical history: arthritis, dementia, diabetes, osteoporosis, other - Past Psychiatric History Psychiatric history: Reports: prior suicide attempt Past psychiatric history details: Overdose on baclofen September 2015. Family psychiatric history: Unknown Family History of Suicide: Unknown - Past Surgical History Surgical History: non-contributory, orthopedic, other, other - Social History Smoking Status: Unknown if ever smoked Smokeless Tobacco Status: No Alcohol use: unknown Drug use: unknown - Family History Mother Hx Family Cardiac Disorders: Yes (MYOCARDIAL INFARCTION.) Medications & Allergies Baclofen 20 mg PO HS 08/30/15 [History] Canagliflozin [Invokana] 300 mg PO DAILY 08/30/15 [History] Cyanocobalamin (Vitamin B-12) [Vitamin B-12] 100 mcg PO DAILY 08/30/15 [History] Ferrous Sulfate 325 mg PO BIDWM 08/30/15 [History] Furosemide [Lasix] 20 mg PO DAILY 08/30/15 [History] GlipiZIDE XL (24 HR) [Glucotrol XL] 10 mg PO BID 08/30/15 [History] Lisinopril [Zestril] 10 mg PO DAILY 08/30/15 [History] Magnesium Oxide [Magnesium] 400 mg PO DAILY 08/30/15 [History] Metformin [Glucophage] 1,000 mg PO BIDWM 08/30/15 [History] Paroxetine HCl [Paroxetine] 40 mg PO DAILY 08/30/15 [History] Aspirin [Adult Low Dose Aspirin EC] 81 mg PO DAILY 09/30/15 [History] Baclofen [Lioresal] 10 mg PO BID 08/16/16 [History] Gabapentin [Neurontin] 800 mg PO QID 08/16/16 [History] Linagliptin [Tradjenta] 5 mg PO DAILY 08/16/16 [History] Lovastatin 40 mg PO HS 08/16/16 [History] Docusate [Colace] 100 mg PO BID PRN 08/21/16 [History] Allergies ibuprofen Allergy (Verified 08/16/16 14:04) Anaphylaxis Penicillins Allergy (Verified 08/16/16 14:04) Anaphylaxis Review of Systems Psychiatric: Reports: depression, anxiety, suicidal ideation, other (Suicide attempt by overdose on baclofen for the second time.) Mental Status Exam Patient orientation: Yes Person, Yes Time, Yes Place Level of alertness: Alert Patient appearance: Appropriate, Unkempt, Disheveled Behavior: calm, cooperative Psychomotor activity: Normal Eye contact: Maintains Eye Contact Mood description: Euthymic/stable, Anxious Affect description: anxious, incongruent with mood Speech pattern: Normal rate, Normal rhythm, Normal tone Speech volume: Normal Thought process: Linear, Goal Oriented Thought content: No Suicidal ideation, No Homicidal ideation, No Overt delusions Perceptual disturbances: No Auditory hallucinations, No Visual hallucinations Attention span: Capable of Focused Attention Memory description: Grossly Intact Patient reliability: Questionable Historian Intelligence estimate: Average Judgment: Limited Insight: Partial Results - Vital Signs Vital signs: Temp Pulse Resp BP 98.0 F 107 16 102/69 08/22/16 09:00 08/22/16 09:00 08/22/16 09:00 08/22/16 09:00 - Labs Labs: Laboratory Last Values POC Glucose 167 (58-89) H 08/22/16 07:56 Assessment and Plan (1) Major depression, single episode Status: Acute Plan: Admit inpatient for safety and stabilization, Close observation, Suicide Precautions per unit protocol, Encourage participation in unit milieu, Group Therapy, Monitor sleep, Monitor appetite Risks, benefits, side effects, alternatives discussed w/pt: Yes Patient agreeable to treatment: Yes (2) Cocaine abuse Status: Acute Plan: Admit inpatient for safety and stabilization, Close observation, Suicide Precautions per unit protocol, Encourage participation in unit milieu, Group Therapy, Monitor sleep, Monitor appetite Risks, benefits, side effects, alternatives discussed w/pt: Yes Patient agreeable to treatment: No
[2016-08-22] MEDS: Baclofen 10 MG TABLET PO SCH (17:03)
[2016-08-22 21:00] LABS: Basophils # 0.1 K/mcL (0.0-0.2); Basophils % 0.4 %; Eosinophils # 0.3 K/mcL (0.0-0.6); Eosinophils % 2.5 %; Hematocrit 42.2 % (37.5-50.1); Hemoglobin 13.5 g/dL (12.9-16.9); Immature Granulocytes % 1.2 % (0-4); Lymphocytes # 2.2 K/mcL (0.6-4.6); Lymphocytes % 17.4 %; Mean Corpuscular Hemoglobin 28.4 pg (28.0-33.3); Mean Corpuscular Volume 88.8 fL (83.0-100.0); Mean Platelet Volume 9.2 fL (9.4-12.4); Monocytes % 7.7 %; Neutrophils # 9.1 K/mcL (1.6-8.9); Platelet Count 312 K/mcL (140-400); Red Blood Count 4.75 M/mcL (4.19-5.50); Red Cell Distribution Width 13.7 % (11.5-14.5); Segmented Neutrophils % 70.8 %
[2016-08-22 21:13] LABS: Magnesium 1.3 mg/dL (1.6-2.6)
--- NOTE | 2016-08-22 21:26 | Internal Med History&Physical ---
Date of Encounter: 08/22/16 Time of Encounter: 21:24 Assessment and Plan (1) Hypotension Current visit: Yes Status: Acute Etiology not very clear. Does not appear to be vasovagal episode was prolonged lasting for 2 hours of lightheadedness. Was tachycardic but not bradycardia. Patient has responded to fluid. electrocardiogram showed no ST-segment shifts. He has chest pain and if dimer elevated will r/o pulmonary embolism. Continue hydration. Stool be checked for occult blood. Hold all sedating medications. sitter at bedside. His CRP is very high any other leukocytosis, will ruled out underlying infectious process. Urinalysis as well as chest x-ray will be performed. Qualifiers: Qualified Code(s): I95.9 - Hypotension, unspecified (2) Diabetes mellitus type 2 in obese Current visit: Yes Status: Acute Sliding scale insulin. He is not hypoglycemic Internal Medicine - H&P: HPI Chief complaint: Lightheadedness. History of present illness: Mr. Peña is a 56 year old male with past medical history of depression, diabetes mellitus, hypertension, prior DVT status. IVC filter placement not currently on anticoagulation had presented to the hospital on 08/19/2016 with baclofen overdose is being now admitted to the floor from the site floor after he developed lightheadedness tunnels found to be hypotensive. Rapid response was actually called because of lightheadedness from hypotension. Nurses reported that the patient has been lightheaded feeling that he is going to faint for 2 hours. Patient actually had a fall today in the bathroom and CT scan of the head showed no evidence of bleed. Patient thinks he had felt lightheaded prior to the fall. On my interview patient was having retro sternal chest pain. A 12 lead electrocardiogram showed no evidence of ST segment shifts. Patient denies any worsening of pain with deep inspiration. Patient has history of prior DVT status post IVC filter placement amount on anticoagulation currently. Patient systolic blood pressure was running into the 70s-80s however he had responded to IV fluids. Patient was tachycardic during this episode but not bradycardia. Patient denies noting any red blood or black stools in his bowel movements today. No vomiting blood. No fevers. Denies any cough sputum production. No urine symptoms. Patients with allergic during our interview with no focal neurological weakness. Patient is a multiple sedating medications in the psych floor. Patient had a prior history of seizure. Today there was no witness seizure activity. Past Med Surg Social Fam HX - Past Medical History Medical history: arthritis, dementia, diabetes, osteoporosis, other Psychiatric history: prior suicide attempt - Past Surgical History Surgical History: non-contributory, orthopedic, other, other - Social History Smoking Status: Unknown if ever smoked Smokeless Tobacco Status: No Alcohol use: unknown Drug use: unknown - Family History Mother Hx Family Cardiac Disorders: Yes (MYOCARDIAL INFARCTION.) Internal Medicine - H&P: Meds Baclofen 20 mg PO HS 08/30/15 [History] Canagliflozin [Invokana] 300 mg PO DAILY 08/30/15 [History] Cyanocobalamin (Vitamin B-12) [Vitamin B-12] 100 mcg PO DAILY 08/30/15 [History] Ferrous Sulfate 325 mg PO BIDWM 08/30/15 [History] Furosemide [Lasix] 20 mg PO DAILY 08/30/15 [History] GlipiZIDE XL (24 HR) [Glucotrol XL] 10 mg PO BID 08/30/15 [History] Lisinopril [Zestril] 10 mg PO DAILY 08/30/15 [History] Magnesium Oxide [Magnesium] 400 mg PO DAILY 08/30/15 [History] Metformin [Glucophage] 1,000 mg PO BIDWM 08/30/15 [History] Paroxetine HCl [Paroxetine] 40 mg PO DAILY 08/30/15 [History] Aspirin [Adult Low Dose Aspirin EC] 81 mg PO DAILY 09/30/15 [History] Baclofen [Lioresal] 10 mg PO BID 08/16/16 [History] Gabapentin [Neurontin] 800 mg PO QID 08/16/16 [History] Linagliptin [Tradjenta] 5 mg PO DAILY 08/16/16 [History] Lovastatin 40 mg PO HS 08/16/16 [History] Docusate [Colace] 100 mg PO BID PRN 08/21/16 [History] Allergies ibuprofen Allergy (Verified 08/16/16 14:04) Anaphylaxis Penicillins Allergy (Verified 08/16/16 14:04) Anaphylaxis All Systems PM: A 10-system review of systems was performed and is negative for pertinent findings except as documented above in the HPI. Review of systems: 10 point ROS is negative except for HPI - Constitutional Vitals: Temp Pulse Resp BP 98.0 F 107 16 102/69 08/22/16 09:00 08/22/16 09:00 08/22/16 09:00 08/22/16 09:00 Exam: Gen.: patient is alert and oriented times 3 not in distress. Doris: normal S1 S2 no additional sounds or murmurs chest: Clear to auscultation abdomen: soft nontender nondistended lower extremity no swelling neuro no focal neurological deficits Internal Med - H&P Results - Labs CBC & Chem 7: 08/22/16 20:51 Labs: Short CBC 08/22/16 Range/Units 20:51 WBC 12.8 H (4.3-11.1) K/mcL Hgb 13.5 (12.9-16.9) g/dL Hct 42.2 (37.5-50.1) % Plt Count 312 (140-400) K/mcL Neutrophils # 9.1 H (1.6-8.9) K/mcL - Impressions ITS Impressions Head CT 08/22/16 14:07 IMPRESSION: No acute intracranial abnormality. D/ / Xander Hoffman MD / Xander Hoffman MD Interpreting Provider: Xander Hoffman MD - VTE Reasons for not Prescribing Prophylaxis: Treatment not Indicated - Low risk for VTE
[2016-08-22] MEDS ORDERED: Magnesium Sulfate 2 GM in D5% in Water 100 ML IVPB ONE (21:49)
[2016-08-22] MEDS ORDERED: Acetaminophen 325 MG TABLET PO PRN (21:49)
[2016-08-22] MEDS ORDERED: 0.9 % Sodium Chloride 1,000 ML IVC SCH (22:00)
[2016-08-22 23:15] VITALS: BP 82/55
[2016-08-23] MEDS ORDERED: Insulin LISPRO 300 UNITS/3 ML VIAL SQ SCH (07:30)
[2016-08-23] MEDS ORDERED: Aspirin Enteric Coated 81 MG Tablet PO SCH (09:00)
--- NOTE | 2016-09-01 08:55 | Psychiatry Progress Note ---
Date of Encounter: 08/22/16 Time of Encounter: 12:00 Subjective Interval history: Patient has not syncopal episode and a medical consult was requested. Medical consult recommended transferring the patient to medical floor for further stabilization. Order was given to discharge patient from the units and when medically stable he can be discharged home. Review of Systems Psychiatric: Reports: depression, anxiety, suicidal ideation, other (Suicide attempt by overdose on baclofen for the second time.) Objective: Exam Patient orientation: Yes Person, Yes Time, Yes Place Level of alertness: Alert Patient appearance: Appropriate, Unkempt, Disheveled Behavior: calm, cooperative Psychomotor activity: Normal Eye contact: Maintains Eye Contact Mood description: Euthymic/stable, Anxious Affect description: anxious, incongruent with mood Speech pattern: Normal rate, Normal rhythm, Normal tone Speech volume: Normal Thought process: Linear, Goal Oriented Thought content: No Suicidal ideation, No Homicidal ideation, No Overt delusions Perceptual disturbances: No Auditory hallucinations, No Visual hallucinations Judgment: Limited Insight: Partial Results - Vital Signs Vital Signs: Temp Pulse Resp BP 97.6 F 112 14 82/55 08/22/16 19:50 08/22/16 23:17 08/22/16 23:17 08/22/16 23:17 - Impressions ITS Impressions Head CT 08/22/16 14:07 IMPRESSION: No acute intracranial abnormality. D/ / Xander Hoffman MD / Xander Hoffman MD Interpreting Provider: Xander Hoffman MD Chest X-Ray 08/22/16 21:11 IMPRESSION: No acute cardiopulmonary abnormality. D/ / Yo Butt MD / Yo Butt MD Interpreting Provider: Yo Butt MD Assessment and Plan (1) Major depression, single episode Status: Acute Plan: Continue hospitalization, Close observation, Suicide Precautions per unit protocol, Encourage participation in unit milieu, Group Therapy, Monitor sleep, Monitor appetite Risks, benefits, side effects, alternatives discussed w/pt: Yes Patient agreeable to treatment: Yes (2) Cocaine abuse Status: Acute Plan: Continue hospitalization, Close observation, Suicide Precautions per unit protocol, Encourage participation in unit milieu, Group Therapy, Monitor sleep, Monitor appetite Risks, benefits, side effects, alternatives discussed w/pt: Yes Patient agreeable to treatment: No Consult Discharge Plan - Plan Instructions: Depression (DC) Referrals: [facility] [place] [Outside] - 09/02/16 1:00 pm
== END 2016-08-22 21:30 | disposition other institution (70) | DRG 881 ==
LOC: 1ANU 16:23
PROVIDERS: ADMIT Psychiatry & Neurology Psychiatry; ATTEND Psychiatry & Neurology Psychiatry

== ENCOUNTER 2016-08-22 20:34 | Inpatient (IN) ==
[2016-08-22 22:13] LABS: Albumin 3.1 g/dL (3.5-5.0); Albumin/Globulin Ratio 0.8 (1.1-2.2); Bilirubin,Total 0.4 mg/dL (0.2-1.2); Calcium 8.7 mg/dL (8.6-10.8); Globulin 3.8 g/dL (2.4-3.5); Potassium 4.7 mEq/L (3.5-4.5); Total Protein 6.9 g/dL (6.0-8.3)
[2016-08-22] MEDS ORDERED: Calcium Gluconate 1,000 MG in D5% in Water 100 ML IVPB ONE (23:01)
[2016-08-22] MEDS ORDERED: 0.9 % Sodium Chloride 1,000 ML IVC ONE (23:01)
[2016-08-22] MEDS ORDERED: 0.9 % Sodium Chloride 1,000 ML IVC SCH (23:15)
[2016-08-22] MEDS ORDERED: *HR* Heparin 5,000 UNIT/ML VIAL IVP PRN ×2 (23:19)
[2016-08-22] MEDS ORDERED: *HR* Heparin 5,000 UNIT/ML VIAL IVP ONE (23:19)
[2016-08-22] MEDS ORDERED: Heparin 25,000 UNIT/500 ML D5W 25,000 UNIT/500 ML MLS IVC SCH (23:30)
[2016-08-22 23:35] LABS: INR 1.2
[2016-08-22 23:38] LABS: Activated Partial Thrombo Time 28.9 Seconds (26.0-36.0)
[2016-08-23] MEDS ORDERED: *HR* Heparin 5,000 UNIT/ML VIAL IVP ONE (00:32)
[2016-08-23] MEDS ORDERED: *HR* Heparin 5,000 UNIT/ML VIAL IVP PRN ×2 (00:32)
[2016-08-23] MEDS: 0.9 % Sodium Chloride 1,000 ML IVC SCH ×3 (00:38→20:10)
[2016-08-23] MEDS ORDERED: Heparin 25,000 UNIT/500 ML D5W 25,000 UNIT/500 ML MLS IVC SCH (00:45)
[2016-08-23 07:38] LABS: Bilirubin,Urine Negative (Negative); Blood,Urine Negative (Negative); Clarity,Urine Clear (Clear); Color,Urine Yellow (Yellow); Glucose,Urine (UA) 100 mg/dL (Normal); Ketones,Urine Negative (Negative); Leukocyte Esterase,Urine Negative (Negative); Nitrite,Urine Negative (Negative); Protein,Urine Negative (Neg-Trace); Specific Gravity,Urine 1.013 (1.010-1.025); Urobilinogen,Urine Normal (Normal)
[2016-08-23 08:24] LABS: Magnesium 1.3 mg/dL (1.6-2.6)
[2016-08-23] MEDS: Insulin LISPRO 300 UNITS/3 ML VIAL SQ SCH ×4 (08:33→21:39)
[2016-08-23 09:24] LABS: Basophils # 0.1 K/mcL (0.0-0.2); Basophils % 0.5 %; Eosinophils # 0.3 K/mcL (0.0-0.6); Eosinophils % 3.1 %; Hemoglobin 12.6 g/dL (12.9-16.9); Immature Granulocytes % 1.3 % (0-4); Lymphocytes # 1.8 K/mcL (0.6-4.6); Lymphocytes % 17.1 %; Mean Corpuscular HGB Conc 32.3 g/dL (31.6-35.5); Mean Corpuscular Hemoglobin 28.5 pg (28.0-33.3); Mean Corpuscular Volume 88.2 fL (83.0-100.0); Mean Platelet Volume 8.9 fL (9.4-12.4); Monocytes # 0.7 K/mcL (0.0-1.3); Monocytes % 6.5 %; Neutrophils # 7.4 K/mcL (1.6-8.9); Platelet Count 230 K/mcL (140-400); Red Blood Count 4.42 M/mcL (4.19-5.50); Red Cell Distribution Width 13.8 % (11.5-14.5); Segmented Neutrophils % 71.5 %
[2016-08-23 09:41] LABS: BUN/Creatinine Ratio 27 (6-26); Carbon Dioxide 20 mEq/L (19-29); Chloride 107 mEq/L (98-109); Glucose 231 mg/dL (70-99); Osmolality,Calculated 293 (280-300); Phosphorous 3.2 mg/dL (2.3-4.7); Potassium 4.6 mEq/L (3.5-4.5); Sodium 135 mEq/L (136-145); eGFR For African Americans > 60 (> 60); eGFR For Non-African Americans > 60 (> 60)
[2016-08-23 09:48] LABS: Blood Urea Nitrogen 28 mg/dL (8-26)
[2016-08-23] MEDS ORDERED: Magnesium Sulfate 2 GM in D5% in Water 100 ML IVPB ONE (11:17)
--- NOTE | 2016-08-23 11:21 | Internal Med Progress Note ---
Date of Encounter: 08/23/16 Time of Encounter: 11:19 - Assessment and plan (1) Pulmonary embolism Current Visit: Yes Status: Acute Assessment and plan: Elevated D-dimer V/Q scan indeterminate will obtain CTA chest to rule out PE Continue Heparin drip in the mean time Pt currently asymptomatic and saturating well on room air Qualifiers: Pulmonary embolism type: other Chronicity: unspecified Acute cor pulmonale presence: without acute cor pulmonale Qualified Code(s): I26.99 - Other pulmonary embolism without acute cor pulmonale (2) Diabetes mellitus type 2 in obese Current Visit: No Status: Chronic Assessment and plan: Hold oral antihyperglcyemic agents at this time continue sliding scale insulin algorithm monitor fingerstick and blood glucose (3) Hypotension Current Visit: No Status: Acute Assessment and plan: Improved at this time Hold antihypertensive agents at this time continue to hold all sedative agents at this time continue IV fluids Qualifiers: Hypotension type: unspecified hypotension type Qualified Code(s): I95.9 - Hypotension, unspecified (4) Acute kidney injury Current Visit: No Status: Resolved Assessment and plan: Likely secondary to dehydration continue IV fluids Renal function improved and appears to be at baseline will continue to monitor (5) DVT prophylaxis Current Visit: No Status: Acute Assessment and plan: Anticoagulated with Heparin - Subjective Interval history: Patient seen and examined at bedside, resting comfortably in bed in no distress at this time. Denies any lightheadedness, dizziness, chest pain, shortness of breath at this time. He was a transfer from the psych inpatient unit for management of hypotension induced dizziness/lightheadedness. he was reported to be tachycardic with elevated d-dimer for which a VQ scan was requested. CT angiogram chest was not done due to poor renal function, VQ scan test is indeterminant and can not rule out PE, however given improved renal function, will order stat CTA chest to rule out PE. - Constitutional Vitals: Temp Pulse Resp BP Pulse Ox 98.1 F 80 16 114/70 95 08/23/16 11:07 08/23/16 11:07 08/23/16 11:07 08/23/16 11:07 08/23/16 11:07 General appearance: Present: cooperative, A&O X 3, morbidly obese, pleasant, no acute distress, answers questions appropriately - Head Head exam: Present: atraumatic, normocephalic - Eye Eye exam: Present: normal appearance, conjuntiva pink, sclera anicteric - Respiratory Respiratory exam: Present: CTAB. Absent: respiratory distress, wheezes - Cardiovascular Cardiovascular exam: Present: RRR, +S1, +S2. Absent: diastolic murmur, gallop, rubs, systolic murmur - GI/Abdominal GI/Abdominal exam: Present: normal bowel sounds, soft, no peritoneal signs. Absent: distended, tenderness - Extremities Exam Extremities exam: Present: warm, radial pulses palpable and symetrical. Absent : calf tenderness, cyanotic, pedal edema - Neurological Exam Neurological exam: Present: alert, oriented X3, no focal deficits - Psychiatric Psychiatric exam: Present: normal affect, normal mood. Absent: suicidal ideation Internal Medicine: Result - Labs CBC & Chem 7: 08/23/16 09:18 08/23/16 09:18 Labs: Short CBC 08/23/16 Range/Units 09:18 WBC 10.4 (4.3-11.1) K/mcL Hgb 12.6 L (12.9-16.9) g/dL Hct 39.0 (37.5-50.1) % Plt Count 230 (140-400) K/mcL Neutrophils # 7.4 (1.6-8.9) K/mcL BMP 08/22/16 08/23/16 20:51 09:18 Sodium 133 L 135 L Potassium 4.7 H 4.6 H Chloride 105 107 Carbon Dioxide 15 L 20 BUN 42 H 28 H D Creatinine 1.67 H 1.03 Glucose 151 H 231 H Calcium 8.7 8.0 L Cardiac Enzymes 08/23/16 Range/Units 06:02 Troponin I 0.00 (0-0.03) ng/mL Liver Function 08/22/16 Range/Units 20:51 Total Bilirubin 0.4 (0.2-1.2) mg/dL AST 17 (5-34) Units/L ALT 19 (0-55) Units/L Alkaline Phosphatase 63 (38-126) Units/L Albumin 3.1 L (3.5-5.0) g/dL Urine 08/23/16 Range/Units 04:44 Urine Color Yellow (Yellow) Urine Clarity Clear (Clear) Urine pH 6.0 (5.0-8.0) pH Units Ur Specific [place] 1.013 (1.010-1.025) Urine Protein Negative (Neg-Trace) mg/dL Urine Glucose (UA) 100 H (Normal) mg/dL - ABG Interpretation ABG results: PT/INR, D-dimer PT 13.0 Seconds (9.4-12.1) H 08/22/16 21:30 - Impressions Impressions Pulmonary Perfusion Imaging 08/22/16 23:58 IMPRESSION: 1. Intermediate probability for pulmonary embolism involving the lingula. There is present though reduced ventilation corresponding with a perfusion defect and a less prominent radiographic abnormality. Critical results were called by Dr. Wayne Thompson MD to Dr. Banuelos on 08/23/2016 at 08:59. 2. Clumped activity central airways, potentially related to poor inspiratory effort and/or airways disease. D/ / Wayne Thompson MD / Wayne Thompson MD Interpreting Provider: Wayne Thompson MD Consult Discharge Plan - Plan Referrals: Helder Chu MD [Primary Care Provider] -
[2016-08-23] MEDS: Gabapentin 400 MG CAPSULE PO SCH ×3 (12:11→20:10)
--- NOTE | 2016-08-23 14:51 | ECHO - Doppler Report ---
Echocardiogram Name: Macy Peña Date of Study: 08/23/2016 Date: 1960 Ht: 70.0 in Medical Record#: [id number] Age: 56 Wt: 259.0 lb Gender: Male BSA: 2.33 Order #: [id number] Location: [facility] Room #: 2N08 Reading Physician: Nacho Dean DO, SERA, CATHY KIRKLAND Photogrammetric Surveyor: Ambar Salas RVT Ordering Physician: Lb Santiago MD Primary Physician: Helder Chu MD Indications: Hypotension Impressions: LVEF 65%. Normal LV chamber size, wall thickness, and function. Mild left ventricular diastolic dysfunction. Normal right ventricular structure and function. No significant valvular dysfunction. No pulmonary hypertension. Left Ventricular Wall Motion: Rest Echo Findings All wall segments showed normal motion. Findings: Study Quality * Technically adequate exam. ECG Findings * Normal sinus rhythm. Left Ventricle * LVEF 65%. * Normal LV chamber size, wall thickness, and function. * Mild left ventricular diastolic dysfunction. Right Ventricle * Normal right ventricular structure and function. Left Atrium * Mildly dilated left atrium. Right Atrium * Normal right atrial size. Aortic Valve * Trileaflet aortic valve with normal function. * No aortic regurgitation. * No aortic stenosis. Mitral Valve * Normal mitral valve structure and function. * No mitral regurgitation. * No mitral stenosis. Tricuspid Valve * Normal tricuspid valve structure and function. * Trace tricuspid regurgitation. * No evidence of pulmonary hypertension. Interatrial Septum * Interatrial septum not well evaluated. Pulmonic Valve * Normal pulmonic valve structure and function. * No pulmonic regurgitation. Aorta * Normally sized aortic root. Pericardium * The pericardium appears normal. IVC * The IVC is not well evaluated. Pulmonary Artery * Normal visualized portions of the main pulmonary artery. History Diabetes Family History of CAD Measurements: BP: 107/ 70 2D Normal Values RVIDd: 3.70 cm <2.7 cm IVSd: 1.10 cm 0.6 - 1.0 cm LVIDd: 4.80 cm 3.7 - 5.6 cm LVPWd: 1.10 cm 0.6 - 1.1 cm LVIDs: 3.10 cm 1.5 - 3.6 cm AO: 3.00 cm < 4.0 cm LA: 3.90 cm 2.0 - 4.0cm %FS: 35.40 cm >25 % LA volume: 55 Mitral Valve Peak E:.85 m/sec Peak A:.89 m/sec E/A Ratio:1 Peak E' Lat Anupam:9.94 cm/s Peak E' Med Anupam:6.63 cm/s E/E' Lat Ratio:8.6 E/E' Med Ratio:12.8 Tricuspid Valve TV Regurg Peak Grad: 26.00mmHg TV Regurg Peak Anupam: 2.55m/sec Updated by Nacho Dean DO, FACJag, ISAEL, FASWAGNER on 08/23/2016 2:42:38 PM Wall Motion [place]: 1=Normal, 2=Hypokinesis, 3=Akinesis, 4=Dyskinesis, 5=Aneurysmal, 6=Hyperkinetic, X=Not Visualized (Blank)=Missing
[2016-08-23] MEDS: *HR* Enoxaparin 120 MG/0.8 ML SYRINGE SQ SCH (17:19)
[2016-08-24] MEDS: *HR* Enoxaparin 120 MG/0.8 ML SYRINGE SQ SCH (05:42)
[2016-08-24 06:20] LABS: Basophils % 0.5 %; Eosinophils # 0.3 K/mcL (0.0-0.6); Eosinophils % 3.6 %; Hematocrit 37.5 % (37.5-50.1); Hemoglobin 12.2 g/dL (12.9-16.9); Immature Granulocytes % 1.5 % (0-4); Lymphocytes # 1.7 K/mcL (0.6-4.6); Lymphocytes % 20.8 %; Mean Corpuscular HGB Conc 32.5 g/dL (31.6-35.5); Mean Corpuscular Hemoglobin 29.3 pg (28.0-33.3); Mean Corpuscular Volume 89.9 fL (83.0-100.0); Mean Platelet Volume 9.3 fL (9.4-12.4); Monocytes # 0.6 K/mcL (0.0-1.3); Monocytes % 7.1 %; Neutrophils # 5.4 K/mcL (1.6-8.9); Platelet Count 220 K/mcL (140-400); Red Blood Count 4.17 M/mcL (4.19-5.50); Red Cell Distribution Width 13.6 % (11.5-14.5); Segmented Neutrophils % 66.5 %
[2016-08-24] MEDS: 0.9 % Sodium Chloride 1,000 ML IVC SCH ×2 (06:29→14:14)
[2016-08-24] MEDS ORDERED: Magnesium Sulfate 1 GM in D5% in Water 100 ML IVPB ONE (07:37)
[2016-08-24] MEDS ORDERED: Magnesium Sulfate 2 GM in D5% in Water 100 ML IVPB ONE (07:37)
[2016-08-24 07:41] LABS: BUN/Creatinine Ratio 19 (6-26); Blood Urea Nitrogen 15 mg/dL (8-26); Calcium 8.3 mg/dL (8.6-10.8); Carbon Dioxide 22 mEq/L (19-29); Chloride 107 mEq/L (98-109); Glucose 146 mg/dL (70-99); Osmolality,Calculated 285 (280-300); Phosphorous 2.3 mg/dL (2.3-4.7); Potassium 4.5 mEq/L (3.5-4.5); Sodium 136 mEq/L (136-145); eGFR For African Americans > 60 (> 60); eGFR For Non-African Americans > 60 (> 60)
[2016-08-24] MEDS: Insulin LISPRO 300 UNITS/3 ML VIAL SQ SCH ×4 (09:04→20:42)
[2016-08-24] MEDS: Gabapentin 400 MG CAPSULE PO SCH ×4 (09:06→21:09)
[2016-08-24 10:13] LABS: Magnesium 1.1 mg/dL (1.6-2.6)
--- NOTE | 2016-08-24 10:27 | Internal Med Progress Note ---
Date of Encounter: 08/24/16 Time of Encounter: 10:27 - Assessment and plan (1) Pulmonary embolism Current Visit: Yes Status: Acute Assessment and plan: Elevated D-dimer CTA chest consistent with Left upper lobe pulmonary artery embolism with emboli in the lingular and right middle lobe pulmonary arteries. No evidence of right heart strain was reported Will start Eliquis 5mg PO BID this evening Continue Lovenox 120mg SQ this morning Patient aware of his diagnosis and is in agreement with his care plan. 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 for discharge Likely d/c in am Qualifiers: Pulmonary embolism type: other Chronicity: unspecified Acute cor pulmonale presence: without acute cor pulmonale Qualified Code(s): I26.99 - Other pulmonary embolism without acute cor pulmonale (2) Diabetes mellitus type 2 in obese Current Visit: No Status: Chronic Assessment and plan: Hold oral antihyperglcyemic agents at this time continue sliding scale insulin algorithm monitor fingerstick and blood glucose (3) Hypotension Current Visit: No Status: Acute Assessment and plan: Resolved BP within acceptable range despite holding antihypertensives continue to hold antihypertensive agents at this time continue to hold all sedative agents at this time continue IV fluids Qualifiers: Hypotension type: unspecified hypotension type Qualified Code(s): I95.9 - Hypotension, unspecified (4) Acute kidney injury Current Visit: No Status: Resolved Assessment and plan: Likely secondary to dehydration continue IV fluids Renal function improved and appears to be at baseline will continue to monitor (5) DVT prophylaxis Current Visit: No Status: Acute Assessment and plan: Anticoagulated with Lovenox at this time. (6) Hypomagnesemia Current Visit: Yes Status: Acute Assessment and plan: Mag supplemented will continue to monitor electrolytes and replace as needed - Subjective Interval history: Patient seen and examined at bedside, resting comfortably in bed in no distress at this time. CTA chest was consistent with Left upper lobe pulmonary artery embolism with emboli in the lingular and right middle lobe pulmonary arteries. No evidence of right heart strain was reported. Patient was kept on anticoagulation with Lovenox SQ q12h. Will start Eliquis 5mg PO q12h this evening. I spoke with Dr. Tinajero (Psychiatry) in regards to patient's discharge care plan as patient was a transfer from psych after an suicide attempt. As per Dr. Tinajero patient will not be returning to psych in patient. Awaiting full consultation in regards to home med reconciliation. - Constitutional Vitals: Temp Pulse Resp BP Pulse Ox 97.7 F 87 16 127/67 94 L 08/24/16 07:40 08/24/16 09:14 08/24/16 07:40 08/24/16 07:40 08/24/16 09:14 General appearance: Present: cooperative, A&O X 3, morbidly obese, pleasant, no acute distress, answers questions appropriately - Head Head exam: Present: atraumatic, normocephalic - Eye Eye exam: Present: normal appearance, conjuntiva pink, sclera anicteric - Respiratory Respiratory exam: Present: CTAB. Absent: respiratory distress, wheezes, tachypnea - Cardiovascular Cardiovascular exam: Present: RRR, +S1, +S2 - GI/Abdominal GI/Abdominal exam: Present: normal bowel sounds, soft, no peritoneal signs. Absent: distended, tenderness - Extremities Exam Extremities exam: Present: pedal edema, warm, radial pulses palpable and symetrical. Absent: calf tenderness - Neurological Exam Neurological exam: Present: alert, oriented X3 - Psychiatric Psychiatric exam: Present: normal affect, normal mood. Absent: suicidal ideation Internal Medicine: Result - Labs CBC & Chem 7: 08/24/16 06:02 08/24/16 06:54 Labs: Short CBC 08/23/16 08/24/16 Range/Units 09:18 06:02 WBC 10.4 8.1 (4.3-11.1) K/mcL Hgb 12.6 L 12.2 L (12.9-16.9) g/dL Hct 39.0 37.5 (37.5-50.1) % Plt Count 230 220 (140-400) K/mcL Neutrophils # 7.4 5.4 (1.6-8.9) K/mcL BMP 08/23/16 08/24/16 09:18 06:54 Sodium 135 L 136 Potassium 4.6 H 4.5 Chloride 107 107 Carbon Dioxide 20 22 BUN 28 H D 15 D Creatinine 1.03 0.77 Glucose 231 H 146 H Calcium 8.0 L 8.3 L - ABG Interpretation ABG results: PT/INR, D-dimer PT 13.0 Seconds (9.4-12.1) H 08/22/16 21:30 - Impressions Impressions Chest CTA 08/23/16 11:17 IMPRESSION: 1. Slightly suboptimal opacification of the pulmonary arteries. However there is definite embolism within the left upper lobe pulmonary artery with probable emboli in the lingular and right middle lobe pulmonary arteries. No evidence of right heart strain. 2. Tree-in-bud opacities within the right lower lobe suggest atypical infection or inflammation. 3. Severe LAD coronary artery calcification. Critical results were called by Dr. Garcia to Dr. Valerie Banuelos on 08/23/2016 at 12:40 PM. D/ / Frankie Garcia MD / Frankie Garcia MD Interpreting Provider: Frankie Garcia MD Consult Discharge Plan - Plan Referrals: Helder Chu MD [Primary Care Provider] -
--- NOTE | 2016-08-24 14:10 | Psychiatry Progress Note ---
Date of Encounter: 08/24/16 Time of Encounter: 09:00 Subjective Interval history: I received a phone call from Valerie Whitman regarding patient's condition updates she told me that he was diagnosed with PE and being medically stabilized and she was asking me about his disposition from a psychiatric standpoint and I indicated that patient can be discharged home after medical stabilization and does not need to return to the psych units. I reviewed his recent progress and recommended that he will follow up as outpatient. Results - Vital Signs Vital Signs: Temp Pulse Resp BP Pulse Ox 97.4 F L 80 18 122/62 93 L 08/24/16 11:58 08/24/16 12:25 08/24/16 11:58 08/24/16 11:58 08/24/16 11:58 - Labs Labs: Laboratory Results - last 24 hr 08/23/16 08/23/16 08/23/16 11:16 13:55 16:09 WBC RBC Hgb Hct MCV MCH MCHC RDW Plt Count MPV Immature Gran % Seg Neutrophils % Lymphocytes % Monocytes % Eosinophils % Basophils % Neutrophils # Lymphocytes # Monocytes # Eosinophils # Basophils # APTT 51.0 H Sodium Potassium Chloride Carbon Dioxide BUN Creatinine Est GFR ( Amer) Est GFR (Non-Af Amer) BUN/Creatinine Ratio Glucose POC Glucose 169 H 102 H Calculated Osmolality Calcium Phosphorus Magnesium Specimen Rejected 08/23/16 08/24/16 08/24/16 20:22 06:02 06:02 WBC 8.1 RBC 4.17 L Hgb 12.2 L Hct 37.5 MCV 89.9 MCH 29.3 MCHC 32.5 RDW 13.6 Plt Count 220 MPV 9.3 L Immature Gran % 1.5 Seg Neutrophils % 66.5 Lymphocytes % 20.8 Monocytes % 7.1 Eosinophils % 3.6 Basophils % 0.5 Neutrophils # 5.4 Lymphocytes # 1.7 Monocytes # 0.6 Eosinophils # 0.3 Basophils # 0.0 APTT Sodium Potassium Chloride Carbon Dioxide BUN Creatinine Est GFR ( Amer) Est GFR (Non-Af Amer) BUN/Creatinine Ratio Glucose POC Glucose 137 H Calculated Osmolality Calcium Phosphorus Magnesium Specimen Rejected Hemolyzed 08/24/16 06:54 WBC RBC Hgb Hct MCV MCH MCHC RDW Plt Count MPV Immature Gran % Seg Neutrophils % Lymphocytes % Monocytes % Eosinophils % Basophils % Neutrophils # Lymphocytes # Monocytes # Eosinophils # Basophils # APTT Sodium 136 Potassium 4.5 Chloride 107 Carbon Dioxide 22 BUN 15 D Creatinine 0.77 Est GFR ( Amer) > 60 Est GFR (Non-Af Amer) > 60 BUN/Creatinine Ratio 19 Glucose 146 H POC Glucose Calculated Osmolality 285 Calcium 8.3 L Phosphorus 2.3 Magnesium 1.1 L Specimen Rejected - Impressions ITS Impressions Pulmonary Perfusion Imaging 08/22/16 23:58 IMPRESSION: 1. Intermediate probability for pulmonary embolism involving the lingula. There is present though reduced ventilation corresponding with a perfusion defect and a less prominent radiographic abnormality. Critical results were called by Dr. Wayne Thompson MD to Dr. Banuelos on 08/23/2016 at 08:59. 2. Clumped activity central airways, potentially related to poor inspiratory effort and/or airways disease. D/ / Wayne Thompson MD / Wayne Thompson MD Interpreting Provider: Wayne Thompson MD Chest CTA 08/23/16 11:17 IMPRESSION: 1. Slightly suboptimal opacification of the pulmonary arteries. However there is definite embolism within the left upper lobe pulmonary artery with probable emboli in the lingular and right middle lobe pulmonary arteries. No evidence of right heart strain. 2. Tree-in-bud opacities within the right lower lobe suggest atypical infection or inflammation. 3. Severe LAD coronary artery calcification. Critical results were called by Dr. Garcia to Dr. Valerie Banuelos on 08/23/2016 at 12:40 PM. D/ / Frankie Garcia MD / Frankie Garcia MD Interpreting Provider: Frankie Garcia MD Consult Discharge Plan - Plan Additional Instructions: Patient is psychiatrically cleared to be discharged and follow up as outpatient. Referrals: Helder Chu MD [Primary Care Provider] -
[2016-08-24] MEDS: APIXABAN 5 MG TABLET PO SCH (17:21)
[2016-08-25 05:23] LABS: Basophils % 0.4 %; Eosinophils # 0.3 K/mcL (0.0-0.6); Eosinophils % 4.4 %; Hematocrit 42.1 % (37.5-50.1); Hemoglobin 13.4 g/dL (12.9-16.9); Immature Granulocytes % 1.7 % (0-4); Lymphocytes # 1.4 K/mcL (0.6-4.6); Lymphocytes % 19.8 %; Mean Corpuscular HGB Conc 31.8 g/dL (31.6-35.5); Mean Corpuscular Hemoglobin 28.5 pg (28.0-33.3); Mean Corpuscular Volume 89.4 fL (83.0-100.0); Mean Platelet Volume 8.7 fL (9.4-12.4); Monocytes # 0.6 K/mcL (0.0-1.3); Neutrophils # 4.8 K/mcL (1.6-8.9); Platelet Count 232 K/mcL (140-400); Red Blood Count 4.71 M/mcL (4.19-5.50); Red Cell Distribution Width 13.3 % (11.5-14.5); Segmented Neutrophils % 65.7 %
[2016-08-25 05:43] LABS: BUN/Creatinine Ratio 11 (6-26); Blood Urea Nitrogen 9 mg/dL (8-26); Calcium 9.3 mg/dL (8.6-10.8); Carbon Dioxide 26 mEq/L (19-29); Chloride 103 mEq/L (98-109); Glucose 146 mg/dL (70-99); Magnesium 1.4 mg/dL (1.6-2.6); Osmolality,Calculated 281 (280-300); Phosphorous 2.7 mg/dL (2.3-4.7); Potassium 4.4 mEq/L (3.5-4.5); Sodium 135 mEq/L (136-145); eGFR For African Americans > 60 (> 60); eGFR For Non-African Americans > 60 (> 60)
[2016-08-25] MEDS: APIXABAN 5 MG TABLET PO SCH (05:58)
[2016-08-25] MEDS: Insulin LISPRO 300 UNITS/3 ML VIAL SQ SCH ×2 (07:55→11:26)
[2016-08-25] MEDS: Gabapentin 400 MG CAPSULE PO SCH ×2 (07:55→13:08)
--- NOTE | 2016-08-25 08:43 | Internal Med Progress Note ---
Date of Encounter: 08/25/16 Time of Encounter: 09:15 - Constitutional Vitals: Temp Pulse Resp BP Pulse Ox 98.2 F 99 16 123/82 98 08/25/16 07:53 08/25/16 07:58 08/25/16 07:53 08/25/16 07:53 08/25/16 07:53 General appearance: Present: cooperative, A&O X 3, morbidly obese, pleasant, no acute distress, answers questions appropriately Internal Medicine: Result - Labs CBC & Chem 7: 08/25/16 05:06 08/25/16 05:06 Labs: Short CBC 08/25/16 Range/Units 05:06 WBC 7.3 (4.3-11.1) K/mcL Hgb 13.4 (12.9-16.9) g/dL Hct 42.1 (37.5-50.1) % Plt Count 232 (140-400) K/mcL Neutrophils # 4.8 (1.6-8.9) K/mcL BMP 08/24/16 08/25/16 06:54 05:06 Sodium 136 135 L Potassium 4.5 4.4 Chloride 107 103 Carbon Dioxide 22 26 BUN 15 D 9 Creatinine 0.77 0.84 Glucose 146 H 146 H Calcium 8.3 L 9.3 - ABG Interpretation ABG results: PT/INR, D-dimer PT 13.0 Seconds (9.4-12.1) H 08/22/16 21:30 Consult Discharge Plan - Plan Additional Instructions: Patient is psychiatrically cleared to be discharged and follow up as outpatient. Referrals: Helder Chu MD [Primary Care Provider] -
[2016-08-25] MEDS ORDERED: APIXABAN 5 MG TABLET PO SCH (09:13)
--- NOTE | 2016-08-25 09:18 | Discharge Summary ---
Date of Encounter: 08/25/16 Time of Encounter: 09:20 - Discharge Medications Prescriptions: Apixaban [Eliquis] 10 mg PO 0600,1800 6 Days Home Medications: Baclofen 20 mg PO HS 08/30/15 [History] Canagliflozin [Invokana] 300 mg PO DAILY 08/30/15 [History] Cyanocobalamin (Vitamin B-12) [Vitamin B-12] 100 mcg PO DAILY 08/30/15 [History] Ferrous Sulfate 325 mg PO BIDWM 08/30/15 [History] Furosemide [Lasix] 20 mg PO DAILY 08/30/15 [History] GlipiZIDE XL (24 HR) [Glucotrol XL] 10 mg PO BID 08/30/15 [History] Lisinopril [Zestril] 10 mg PO DAILY 08/30/15 [History] Magnesium Oxide [Magnesium] 400 mg PO DAILY 08/30/15 [History] Metformin [Glucophage] 1,000 mg PO BIDWM 08/30/15 [History] Paroxetine HCl [Paroxetine] 40 mg PO DAILY 08/30/15 [History] Aspirin [Adult Low Dose Aspirin EC] 81 mg PO DAILY 09/30/15 [History] Baclofen [Lioresal] 10 mg PO BID 08/16/16 [History] Gabapentin [Neurontin] 800 mg PO QID 08/16/16 [History] Linagliptin [Tradjenta] 5 mg PO DAILY 08/16/16 [History] Lovastatin 40 mg PO HS 08/16/16 [History] Docusate [Colace] 100 mg PO BID PRN 08/21/16 [History] Apixaban [Eliquis] 10 mg PO 0600,1800 6 Days 08/25/16 [Rx] Allergies/Adverse Reactions: Allergies ibuprofen Allergy (Verified 08/16/16 14:04) Anaphylaxis Penicillins Allergy (Verified 08/16/16 14:04) Anaphylaxis Procedures/tests Complete & Pending: Procedures Performed prior 72 hours Category Date Time Status CTA chest [CT angio chest] [CT] Stat Cat Scan 08/23/16 11:17 Completed NM pul vent and perfuse [NM] Routine Exams 08/22/16 23:58 Completed EV echocardiogram Routine Y 08/23/16 23:02 Completed Date of admission: 08/22/16 21:57 Primary care physician: Helder Chu MD Consults: 08/22/16 23:02 Consult to Occupational Therapy [CONS] Routine Comment: Evaluate, develop and implement POC Consult to Physical Therapy [CONS] Routine Comment: Evaluate, develop and implement POC 08/24/16 07:39 Consult to Psychiatry [CONS] Routine Consulting Provider: Favio Woodall Reason for Consult: transfer from psych for syncope, was admitted to psych s/ p suicidal attempt, need psych input if patient will be discharge to psych or home Call Completed: Yes - Patient Status Disposition: Home Health Service Condition: Good Overall status at discharge: patient is progressing back to baseline - Discharge Instructions Follow Up With: Helder Chu MD [Primary Care Provider] - Additional Instructions: Patient is psychiatrically cleared to be discharged and follow up as outpatient. F/U with PCP for chronic care management Compliance with Apixaban reinforced. - Diet and Activity Activity: resume usual activities as tolerated, other (avoid falls due to use of anticoagulant.) Hospital course: Mr. Peña is a 56 year old male - Time Spent with Patient Total time spent providing and/or coordinating discharge services: - Constitutional Vitals: Temp Pulse Resp BP Pulse Ox 98.2 F 99 16 123/82 98 08/25/16 07:53 08/25/16 07:58 08/25/16 07:53 08/25/16 07:53 08/25/16 07:53 General appearance: Present: cooperative, A&O X 3, morbidly obese, pleasant, no acute distress, answers questions appropriately
[2016-08-25 11:35] VITALS: BP 126/102
--- NOTE | 2016-08-25 14:02 | Electrocardiograph Report ---
[address] [place], [place] [address] Test Date: 2016-08-22 Pat Name: Macy Peña Department: 103 Room: 2N08 Gender: M Manager Of Compliance: : 1960 Requested By: Valerie Banuelos Order Number: [id number] Reading MD: Matteo Gann MD Measurements Intervals Gunpowder Rate: 102 P: 50 WI: 151 QRS: 25 QRSD: 82 T: 50 QT: 298 QTc: 357 Interpretive Statements SINUS TACHYCARDIA LEFT ATRIAL ENLARGEMENT Electronically Signed On 08-25-2016 14:00:58 EDT by Matteo Gann MD
[2016-08-25 18:40] LABS: CK-BB (CK isoenzymes) 0 % (0-0); CK-MB (CK isoenzymes) 0 % (0-4)
[2016-08-26 07:17] LABS: CK Total (Ck Isoenzymes) 105 U/L (20-200); CK-MM (CK-isoenzymes) 100 % (96-100)
--- NOTE | 2016-09-10 12:54 | Internal Med History&Physical ---
Date of Encounter: 08/22/16 Time of Encounter: 12:51 Assessment and Plan (1) JEB (acute kidney injury) Status: Acute Due to dehydration and hypotension. Patient is being hydrated. Follow urine output. follow kidney functions. Keep map more than 65 (2) Baclofen overdose Status: Acute Patient has been admitted to the ICU status post ventillatory support. Recovered. Qualifiers: Encounter type: initial encounter Injury intent: intentional self-harm Qualified Code(s): T42.8X2A - Poisoning by antiparkinsonism drugs and other central muscle-tone depressants, intentional self-harm, initial encounter (3) Hypotension Status: Acute Suspect pulmonary embolism. Indeed I will recheck positive VQ scan will be performed. Patient will also be hydrated. Electrocardiogram shows no evidence of ischemic changes. Will also rule out sepsis. Check urine analysis chest x- ray etc. patient will be transferred to 2 N. floor continuous telemetry monitoring prognosis guarded. Suicide precautions and sitter at bedside Qualifiers: Hypotension type: unspecified hypotension type Qualified Code(s): I95.9 - Hypotension, unspecified Internal Medicine - H&P: HPI Chief complaint: lightheadedness History of present illness: Mr. Peña is a 56 year old male what presented to the hospital with baclofen overdose and was discharged to the psychiatry floor started experiencing precinct episode. Patient started feeling lightheaded especially on standing up for the prior 2 hours. Nurses were concerned checked his blood pressure and he was found to be hypotensive. Patient became less responsive and rapid response was called. We immediately attended to the patient was found to be hypotensive and tachycardic. He denied any chest pain. No shortness of breath orthopnea processes monoclonal dyspnea. He denied any hemodialysis melena or hematochezia. The episode lasted for approximately 2 hours. Does not appear to be vasovagal. Patient has received a literal fluids with some improvement in symptoms. He had prior history of DVT status post IVC filter placement. Patient was being transferred to the telemetry floor. No coughing expectoration fever chills urinary symptoms or diarrhea. No overdose reported. Past Med Surg Social Fam HX - Past Medical History Medical history: arthritis, dementia, diabetes, hypertension, osteoporosis, other Psychiatric history: anxiety, depression, prior suicide attempt - Past Surgical History Surgical History: non-contributory, appendectomy, orthopedic, other, other - Social History Smoking Status: Never smoker Smokeless Tobacco Status: No Alcohol use: none Drug use: marijuana - Family History Mother Hx Family Cardiac Disorders: Yes (MYOCARDIAL INFARCTION.) Internal Medicine - H&P: Meds Baclofen 20 mg PO HS 08/30/15 [History] Canagliflozin [Invokana] 300 mg PO DAILY 08/30/15 [History] Cyanocobalamin (Vitamin B-12) [Vitamin B-12] 100 mcg PO DAILY 08/30/15 [History] Ferrous Sulfate 325 mg PO BIDWM 08/30/15 [History] Furosemide [Lasix] 20 mg PO DAILY 08/30/15 [History] GlipiZIDE XL (24 HR) [Glucotrol XL] 10 mg PO BID 08/30/15 [History] Lisinopril [Zestril] 10 mg PO DAILY 08/30/15 [History] Magnesium Oxide [Magnesium] 400 mg PO DAILY 08/30/15 [History] Metformin [Glucophage] 1,000 mg PO BIDWM 08/30/15 [History] Paroxetine HCl [Paroxetine] 40 mg PO DAILY 08/30/15 [History] Aspirin [Adult Low Dose Aspirin EC] 81 mg PO DAILY 09/30/15 [History] Baclofen [Lioresal] 10 mg PO BID 08/16/16 [History] Gabapentin [Neurontin] 800 mg PO QID 08/16/16 [History] Linagliptin [Tradjenta] 5 mg PO DAILY 08/16/16 [History] Lovastatin 40 mg PO HS 08/16/16 [History] Docusate [Colace] 100 mg PO BID PRN 08/21/16 [History] Apixaban [Eliquis] 10 mg PO 0600,1800 6 Days 08/25/16 [Rx] Allergies ibuprofen Allergy (Verified 08/16/16 14:04) Anaphylaxis Penicillins Allergy (Verified 08/16/16 14:04) Anaphylaxis All Systems PM: A 10-system review of systems was performed and is negative for pertinent findings except as documented above in the HPI. Review of systems: 10 point review of systems is negative except for HPI. - Constitutional Vitals: Temp Pulse Resp BP Pulse Ox 98.0 F 80 16 126/102 95 08/25/16 11:32 08/25/16 11:32 08/25/16 11:32 08/25/16 11:32 08/25/16 11:32 General appearance: Present: cooperative, A&O X 3, morbidly obese, pleasant, no acute distress, answers questions appropriately Exam: Gen.: patient appears lethargic. Radha: normal S1 S2 tachycardic no additional sounds are murmurs chest: clear auscultation bilaterally abdomen: soft nontender nondistended lower extremity: no swelling neuro: no focal neurological deficits Internal Med - H&P Results - Labs CBC & Chem 7: 08/25/16 05:06 08/25/16 05:06 - Impressions ITS Impressions Pulmonary Perfusion Imaging 08/22/16 23:58 IMPRESSION: 1. Intermediate probability for pulmonary embolism involving the lingula. There is present though reduced ventilation corresponding with a perfusion defect and a less prominent radiographic abnormality. Critical results were called by Dr. Wayne Thompson MD to Dr. Banuelos on 08/23/2016 at 08:59. 2. Clumped activity central airways, potentially related to poor inspiratory effort and/or airways disease. D/ / Wayne Thompson MD / Wayne Thompson MD Interpreting Provider: Wayne Thompson MD Chest CTA 08/23/16 11:17 IMPRESSION: 1. Slightly suboptimal opacification of the pulmonary arteries. However there is definite embolism within the left upper lobe pulmonary artery with probable emboli in the lingular and right middle lobe pulmonary arteries. No evidence of right heart strain. 2. Tree-in-bud opacities within the right lower lobe suggest atypical infection or inflammation. 3. Severe LAD coronary artery calcification. Critical results were called by Dr. Garcia to Dr. Valerie Banuelos on 08/23/2016 at 12:40 PM. D/ / Frankie Garcia MD / Frankie Garcia MD Interpreting Provider: Frankie Garcia MD
== END 2016-08-25 14:52 | disposition home health service (06) | DRG 176 ==
LOC: 2NNU 21:57
PROVIDERS: ADMIT Hospitalist; ATTEND Internal Medicine

== ENCOUNTER 2019-03-26 15:47 | Inpatient (IN) ==
[2019-03-26] MEDS ORDERED: 0.9 % Sodium Chloride 1,000 ML IVC ONE ×2 (16:07→20:48)
[2019-03-26] MEDS ORDERED: Ondansetron 4 MG/2 ML VIAL IVP ONE (17:10)
[2019-03-26 17:31] LABS: Basophils # 0.1 K/mcL (0.0-0.2); Basophils % 0.3 %; Eosinophils # 0.3 K/mcL (0.0-0.6); Eosinophils % 1.3 %; Hematocrit 42.1 % (37.5-50.1); Hemoglobin 14.1 g/dL (12.9-16.9); Immature Granulocytes % 0.8 % (0-4); Lymphocytes # 0.7 K/mcL (0.6-4.6); Lymphocytes % 2.9 %; Mean Corpuscular HGB Conc 33.5 g/dL (31.6-35.5); Mean Corpuscular Hemoglobin 28.8 pg (28.0-33.3); Mean Corpuscular Volume 85.9 fL (83.0-100.0); Mean Platelet Volume 10.1 fL (9.4-12.4); Monocytes # 1.2 K/mcL (0.0-1.3); Monocytes % 5.6 %; Neutrophils # 19.7 K/mcL (1.6-8.9); Platelet Count 258 K/mcL (140-400); Red Cell Distribution Width 14.3 % (11.5-14.5); Segmented Neutrophils % 89.1 %; White Blood Count 22.1 K/mcL (4.3-11.1)
[2019-03-26 17:37] LABS: INR 1.4; Prothrombin Time 15.4 Seconds (9.4-12.1)
[2019-03-26 17:40] LABS: Activated Partial Thrombo Time 33.2 Seconds (26.0-36.0)
[2019-03-26 17:53] LABS: Alanine Aminotransferase 40 Units/L (7-52); Albumin 3.9 g/dL (3.5-5.7); Albumin/Globulin Ratio 1.1 (1.1-2.2); Alkaline Phosphatase 99 Units/L (34-104); Aspartate Amino Transferase 22 Units/L (13-39); BUN/Creatinine Ratio 23 (6-26); Bilirubin,Direct 0.1 mg/dL (0.0-0.2); Bilirubin,Indirect 0.3 mg/dL (0.0-1.2); Bilirubin,Total 0.4 mg/dL (0.3-1.0); Blood Urea Nitrogen 27 mg/dL (6-20); Calcium 8.9 mg/dL (8.6-10.3); Carbon Dioxide 22 mEq/L (23-29); Chloride 98 mEq/L (98-107); Globulin 3.4 g/dL (2.4-3.5); Glucose 225 mg/dL (70-105); Magnesium 0.9 mg/dL (1.6-2.6); Osmolality,Calculated 282 (280-300); Phosphorous 1.8 mg/dL (2.7-4.5); Potassium 5.3 mEq/L (3.5-5.1); Sodium 130 mEq/L (136-145); Total Protein 7.3 g/dL (6.4-8.9); Troponin I < 0.03 ng/mL (< 0.04); eGFR For African Americans > 60 (> 60); eGFR For Non-African Americans > 60 (> 60)
[2019-03-26 18:02] LABS: Bilirubin,Urine Negative (Negative); Blood,Urine Moderate (Negative); Clarity,Urine Cloudy (Clear); Color,Urine Yellow (Yellow); Glucose,Urine (UA) >=1000 mg/dL (Normal); Ketones,Urine Negative (Negative); Leukocyte Esterase,Urine Negative (Negative); Nitrite,Urine Negative (Negative); Protein,Urine 30 mg/dL (Neg-Trace); Specific Gravity,Urine 1.026 (1.010-1.025); Urobilinogen,Urine Normal (Normal)
[2019-03-26 18:03] LABS: Bacteria,Urine None Seen per hpf (None-Few); Hyaline Casts,Urine Few per lpf (None-Few); RBC,Urine 0-3 per hpf (0-3); Squamous Epithelial Cell,Urine Many per lpf (None-Few); WBC,Urine 0-3 per hpf (0-3)
[2019-03-26 18:10] LABS: ABG Base Excess 0 mEq/L (-2 to 3); ABG HCO3 25 mEq/L (21-27); ABG Oxygen Saturation 96 % (95-98); ABG PCO2 41 mmHg (35-45); ABG PO2 81 mmHg (85-104); ABG TCO2 27 mEq/L (20-26)
[2019-03-26] MEDS ORDERED: Isovue-370 500 ML BOTTLE IVP ONE ×2 (18:43→18:50)
[2019-03-26] MEDS ORDERED: Magnesium Sulfate 1 GM in D5% in Water 100 ML IVPB ONE (19:51)
[2019-03-26] MEDS ORDERED: Calcium Gluconate 1gm/50mL 1 GM/50 ML BAG IVPB ONE ×2 (19:52→21:06)
[2019-03-26] MEDS ORDERED: Insulin Human Regular 10 UNIT in 0.9 % Sodium Chloride 10 ML IV ONE (19:52)
[2019-03-26] MEDS ORDERED: Aspirin 81 MG TAB.CHEW PO ONE (19:52)
[2019-03-26 20:18] LABS: Lipase 6 Units/L (11-82)
[2019-03-26] MEDS ORDERED: *HR* Dextrose 50 % in Water (Syg) 50 ML SYRINGE IVP PRN (21:35)
[2019-03-26] MEDS ORDERED: Acetaminophen 325 MG TABLET PO PRN (21:35)
[2019-03-26] MEDS ORDERED: Dextrose Gel 15 GM/37.5 ML TUBE PO PRN ×2 (21:35)
[2019-03-26] MEDS ORDERED: Ondansetron 4 MG/2 ML VIAL IVP PRN (22:10)
[2019-03-27] MEDS: *HR* Heparin 5,000 UNIT/ML VIAL SQ SCH ×4 (00:24→20:32)
[2019-03-27] MEDS: 0.9 % Sodium Chloride 1,000 ML IVC SCH ×2 (00:24→02:57)
[2019-03-27] MEDS: Insulin LISPRO 300 UNITS/3 ML VIAL SQ SCH ×5 (00:25→20:32)
[2019-03-27] MEDS ORDERED: Gabapentin 400 MG CAPSULE PO ONE (00:38)
[2019-03-27] MEDS ORDERED: *HR* LORazepam 0.5 MG TABLET PO ONE (00:49)
[2019-03-27 01:02] LABS: Adenovirus Not Detected (Not Detect); Bordetella Pertussis Not Detected (Not Detect); Chlamydophila pneumoniae Not Detected (Not Detect); Coronavirus 229E Not Detected (Not Detect); Coronavirus HKU1 Not Detected (Not Detect); Coronavirus NL63 Not Detected (Not Detect); Coronavirus OC43 Not Detected (Not Detect); Human Metapneumovirus Not Detected (Not Detect); Human Rhinovirus/Enterovirus Not Detected (Not Detect); Influenza A Subtype 2009 H1 Not Detected (Not Detect); Influenza A Untypeable Not Detected (Not Detect); Influenza B Not Detected (Not Detect); Mycoplasma pneumoniae Not Detected (Not Detect); Parainfluenza Virus 1 Not Detected (Not Detect); Parainfluenza Virus 2 Not Detected (Not Detect); Parainfluenza Virus 3 Not Detected (Not Detect); Parainfluenza Virus 4 Not Detected (Not Detect); Respiratory Syncytial Virus Not Detected (Not Detect)
[2019-03-27 04:44] LABS: Basophils # 0.1 K/mcL (0.0-0.2); Basophils % 0.3 %; Eosinophils # 0.1 K/mcL (0.0-0.6); Eosinophils % 0.6 %; Hematocrit 36.9 % (37.5-50.1); Immature Granulocytes % 0.6 % (0-4); Lymphocytes # 1.1 K/mcL (0.6-4.6); Mean Corpuscular Hemoglobin 28.4 pg (28.0-33.3); Mean Corpuscular Volume 88.9 fL (83.0-100.0); Mean Platelet Volume 10.3 fL (9.4-12.4); Monocytes % 6.3 %; Neutrophils # 13.8 K/mcL (1.6-8.9); Platelet Count 220 K/mcL (140-400); Red Blood Count 4.15 M/mcL (4.19-5.50); Red Cell Distribution Width 14.8 % (11.5-14.5); Segmented Neutrophils % 85.2 %; White Blood Count 16.1 K/mcL (4.3-11.1)
[2019-03-27 04:48] LABS: Hemoglobin 11.8 g/dL (12.9-16.9)
[2019-03-27 04:58] LABS: BUN/Creatinine Ratio 23 (6-26); Blood Urea Nitrogen 33 mg/dL (6-20); Calcium 7.8 mg/dL (8.6-10.3); Carbon Dioxide 22 mEq/L (23-29); Chloride 102 mEq/L (98-107); Glucose 281 mg/dL (70-105); Osmolality,Calculated 287 (280-300); Potassium 4.7 mEq/L (3.5-5.1); Sodium 130 mEq/L (136-145); Troponin I < 0.03 ng/mL (< 0.04); eGFR For African Americans > 60 (> 60); eGFR For Non-African Americans 50 (> 60)
[2019-03-27 05:21] LABS: Magnesium 1.5 mg/dL (1.6-2.6)
[2019-03-27] MEDS: traMADol 50 MG TABLET PO PRN ×2 (06:46→16:38)
[2019-03-27 07:14] LABS: Amphetamine Screen,Urine Negative ng/mL (Cutoff=1000); Barbiturate Screen,Urine Negative ng/mL (Cutoff=200)
[2019-03-27 07:15] LABS: Benzodiazepines Screen,Urine Negative ng/mL (Cutoff=300); Cannabinoid Screen,Urine Negative ng/mL (Cutoff = 50); Cocaine Screen,Urine Negative ng/mL (Cutoff= 300); Opiate Screen,Urine Negative ng/mL (Cutoff=300); Phencyclidine Screen,Urine Negative ng/mL (Cutoff=25)
[2019-03-27] MEDS: Furosemide 20 MG TABLET PO SCH (08:25)
[2019-03-27] MEDS: Aspirin Enteric Coated 81 MG Tablet PO SCH (08:25)
[2019-03-27] MEDS: Magnesium Oxide 400 MG TABLET PO SCH (08:25)
[2019-03-27] MEDS: Baclofen 10 MG TABLET PO SCH ×2 (08:25→20:31)
[2019-03-27] MEDS: Gabapentin 400 MG CAPSULE PO SCH ×4 (08:26→20:31)
[2019-03-27] MEDS: Cyanocobalamin (B-12) 1,000 MCG TABLET PO SCH (08:26)
[2019-03-27] MEDS ORDERED: *HR* LORazepam 2 MG/ML VIAL IVP ONE (20:58)
[2019-03-27] MEDS ORDERED: *HR* LORazepam 1 MG TABLET PO ONE (21:43)
[2019-03-27 23:05] LABS: Adenovirus F 40/41 PCR Not detected (Not detect); Astrovirus PCR Not detected (Not detect); C.difficile Toxin A/B Gene PCR Not detected (Not detect); Campylobacter by PCR Not detected (Not detect); Cryptosporidium by PCR Not detected (Not detect); Cyclospora cayetanensis PCR Not detected (Not detect); E. coli O157 by PCR Not detected (Not detect); Entamoeba histolytica PCR Not detected (Not detect); Enteroaggregative E.coli(EAEC) Not detected (Not detect); Enteropathogenic E.coli(EPEC) Not detected (Not detect); Enterotoxigenic E.coli (ETEC) Not detected (Not detect); Giardia lamblia PCR Not detected (Not detect); Norovirus GI/GII PCR Not detected (Not detect); Plesiomonas shigelloides PCR Not detected (Not detect); Rotavirus A PCR Not detected (Not detect); Salmonella PCR Not detected (Not detect); Sapovirus PCR Not detected (Not detect); Shig/EnteroinvasiveE coli EIEC Not detected (Not detect); Shigalike tox-prod E coli STEC Not detected (Not detect); Vibrio PCR Not detected (Not detect); Vibrio cholerae PCR Not detected (Not detect); Yersinia enterocolitica PCR Not detected (Not detect)
[2019-03-28] MEDS: *HR* Heparin 5,000 UNIT/ML VIAL SQ SCH ×3 (05:03→21:39)
[2019-03-28] MEDS: Magnesium Oxide 400 MG TABLET PO SCH (08:49)
[2019-03-28] MEDS: Gabapentin 400 MG CAPSULE PO SCH ×4 (08:49→21:39)
[2019-03-28] MEDS: Aspirin Enteric Coated 81 MG Tablet PO SCH (08:49)
[2019-03-28] MEDS: Cyanocobalamin (B-12) 1,000 MCG TABLET PO SCH (08:50)
[2019-03-28] MEDS: Baclofen 10 MG TABLET PO SCH (08:50)
[2019-03-28] MEDS: Insulin LISPRO 300 UNITS/3 ML VIAL SQ SCH ×3 (08:51→16:50)
[2019-03-28] MEDS: Furosemide 20 MG TABLET PO SCH (09:05)
[2019-03-28 10:31] LABS: Basophils % 0.4 %; Eosinophils # 0.3 K/mcL (0.0-0.6); Eosinophils % 3.8 %; Hematocrit 39.1 % (37.5-50.1); Hemoglobin 12.7 g/dL (12.9-16.9); Immature Granulocytes % 0.3 % (0-4); Lymphocytes # 1.1 K/mcL (0.6-4.6); Lymphocytes % 13.9 %; Mean Corpuscular HGB Conc 32.5 g/dL (31.6-35.5); Mean Corpuscular Hemoglobin 28.5 pg (28.0-33.3); Mean Corpuscular Volume 87.7 fL (83.0-100.0); Mean Platelet Volume 10.6 fL (9.4-12.4); Monocytes # 0.6 K/mcL (0.0-1.3); Monocytes % 7.1 %; Neutrophils # 5.9 K/mcL (1.6-8.9); Platelet Count 235 K/mcL (140-400); Red Blood Count 4.46 M/mcL (4.19-5.50); Segmented Neutrophils % 74.5 %
[2019-03-28 10:41] LABS: White Blood Count 7.9 K/mcL (4.3-11.1)
[2019-03-28 10:44] LABS: BUN/Creatinine Ratio 19 (6-26); Blood Urea Nitrogen 19 mg/dL (6-20); Calcium 8.4 mg/dL (8.6-10.3); Carbon Dioxide 23 mEq/L (23-29); Chloride 99 mEq/L (98-107); Glucose 375 mg/dL (70-105); Osmolality,Calculated 288 (280-300); Potassium 4.4 mEq/L (3.5-5.1); Sodium 130 mEq/L (136-145); eGFR For African Americans > 60 (> 60); eGFR For Non-African Americans > 60 (> 60)
[2019-03-28] MEDS ORDERED: Insulin LISPRO 300 UNITS/3 ML VIAL SQ SCH (21:00)
[2019-03-28] MEDS ORDERED: *HR* LORazepam 2 MG/ML VIAL IVP ONE (21:48)
[2019-03-29 02:37] LABS: Basophils % 0.5 %; Eosinophils # 0.4 K/mcL (0.0-0.6); Eosinophils % 5.6 %; Hematocrit 40.5 % (37.5-50.1); Hemoglobin 13.1 g/dL (12.9-16.9); Immature Granulocytes % 0.3 % (0-4); Lymphocytes # 1.2 K/mcL (0.6-4.6); Lymphocytes % 17.4 %; Mean Corpuscular HGB Conc 32.3 g/dL (31.6-35.5); Mean Corpuscular Hemoglobin 28.3 pg (28.0-33.3); Mean Corpuscular Volume 87.5 fL (83.0-100.0); Mean Platelet Volume 9.7 fL (9.4-12.4); Monocytes # 0.6 K/mcL (0.0-1.3); Monocytes % 8.9 %; Neutrophils # 4.5 K/mcL (1.6-8.9); Platelet Count 241 K/mcL (140-400); Red Blood Count 4.63 M/mcL (4.19-5.50); Red Cell Distribution Width 14.6 % (11.5-14.5); Segmented Neutrophils % 67.3 %; White Blood Count 6.7 K/mcL (4.3-11.1)
[2019-03-29 02:52] LABS: BUN/Creatinine Ratio 18 (6-26); Blood Urea Nitrogen 19 mg/dL (6-20); Calcium 8.7 mg/dL (8.6-10.3); Carbon Dioxide 24 mEq/L (23-29); Chloride 100 mEq/L (98-107); Glucose 294 mg/dL (70-105); Osmolality,Calculated 283 (280-300); Potassium 4.4 mEq/L (3.5-5.1); Sodium 130 mEq/L (136-145); eGFR For African Americans > 60 (> 60); eGFR For Non-African Americans > 60 (> 60)
[2019-03-29] MEDS: *HR* Heparin 5,000 UNIT/ML VIAL SQ SCH ×3 (05:38→20:32)
[2019-03-29] MEDS: Furosemide 20 MG TABLET PO SCH (09:05)
[2019-03-29] MEDS: Aspirin Enteric Coated 81 MG Tablet PO SCH (09:05)
[2019-03-29] MEDS: Cyanocobalamin (B-12) 1,000 MCG TABLET PO SCH (09:05)
[2019-03-29] MEDS: Magnesium Oxide 400 MG TABLET PO SCH (09:05)
[2019-03-29] MEDS: Gabapentin 400 MG CAPSULE PO SCH ×4 (09:06→20:31)
[2019-03-29] MEDS: Insulin LISPRO 300 UNITS/3 ML VIAL SQ SCH ×3 (09:07→16:14)
[2019-03-29 09:19] LABS: Magnesium 1.7 mg/dL (1.6-2.6); Phosphorous 2.7 mg/dL (2.7-4.5)
[2019-03-29] MEDS ORDERED: Melatonin 3 MG TABLET PO PRN (20:08)
[2019-03-29] MEDS ORDERED: *HR* LORazepam 1 MG TABLET PO ONE (20:44)
[2019-03-29] MEDS ORDERED: Insulin LISPRO 300 UNITS/3 ML VIAL SQ SCH ×2 (21:00)
[2019-03-29] MEDS ORDERED: Insulin DETEMIR 100 UNIT/ML X5UNITS SQ SCH ×2 (21:00)
[2019-03-30] MEDS: Insulin LISPRO 300 UNITS/3 ML VIAL SQ SCH ×2 (01:10→09:08)
[2019-03-30 05:04] LABS: Basophils % 0.6 %; Eosinophils # 0.5 K/mcL (0.0-0.6); Eosinophils % 7.8 %; Hematocrit 41.3 % (37.5-50.1); Hemoglobin 13.5 g/dL (12.9-16.9); Immature Granulocytes % 0.4 % (0-4); Lymphocytes # 1.2 K/mcL (0.6-4.6); Lymphocytes % 18.4 %; Mean Corpuscular HGB Conc 32.7 g/dL (31.6-35.5); Mean Corpuscular Hemoglobin 28.4 pg (28.0-33.3); Mean Corpuscular Volume 86.8 fL (83.0-100.0); Mean Platelet Volume 9.4 fL (9.4-12.4); Monocytes # 0.5 K/mcL (0.0-1.3); Monocytes % 7.8 %; Neutrophils # 4.4 K/mcL (1.6-8.9); Platelet Count 262 K/mcL (140-400); Red Blood Count 4.76 M/mcL (4.19-5.50); Red Cell Distribution Width 14.1 % (11.5-14.5); White Blood Count 6.7 K/mcL (4.3-11.1)
[2019-03-30] MEDS: *HR* Heparin 5,000 UNIT/ML VIAL SQ SCH (05:22)
[2019-03-30] MEDS ORDERED: Nystatin POWDER 30 GM BOTTLE TP PRN (05:32)
[2019-03-30 05:39] LABS: BUN/Creatinine Ratio 18 (6-26); Blood Urea Nitrogen 18 mg/dL (6-20); Calcium 8.7 mg/dL (8.6-10.3); Carbon Dioxide 23 mEq/L (23-29); Chloride 100 mEq/L (98-107); Glucose 281 mg/dL (70-105); Osmolality,Calculated 284 (280-300); Potassium 4.6 mEq/L (3.5-5.1); Sodium 131 mEq/L (136-145); eGFR For African Americans > 60 (> 60); eGFR For Non-African Americans > 60 (> 60)
[2019-03-30 07:10] VITALS: BP 128/83
[2019-03-30] MEDS: Aspirin Enteric Coated 81 MG Tablet PO SCH (09:07)
[2019-03-30] MEDS: Gabapentin 400 MG CAPSULE PO SCH (09:07)
[2019-03-30] MEDS: Cyanocobalamin (B-12) 1,000 MCG TABLET PO SCH (09:08)
[2019-03-30] MEDS: Magnesium Oxide 400 MG TABLET PO SCH (09:08)
== END 2019-03-30 14:10 | disposition home or self-care (01) | DRG 392 ==
LOC: EMEROOARM 15:47 → 3BNU 15:47
PROVIDERS: ADMIT Internal Medicine; ATTEND Internal Medicine

== ENCOUNTER 2020-01-28 00:43 | Inpatient (IN) ==
[2020-01-28] MEDS ORDERED: *HR* HYDROcodone/Acet 5/325 mg TABLET PO ONE (01:01)
[2020-01-28] MEDS ORDERED: Isovue-370 500 ML BOTTLE IVP ONE (01:06)
[2020-01-28] MEDS ORDERED: 0.9 % Sodium Chloride 500 ML IVC ONE (01:56)
[2020-01-28 02:12] LABS: Basophils # 0.1 K/mcL (0.0-0.2); Basophils % 0.4 %; Eosinophils # 0.1 K/mcL (0.0-0.6); Eosinophils % 0.4 %; Hematocrit 38.2 % (37.5-50.1); Hemoglobin 12.3 g/dL (12.9-16.9); Immature Granulocytes % 0.3 % (0-4); Lymphocytes # 0.9 K/mcL (0.6-4.6); Lymphocytes % 6.3 %; Mean Corpuscular HGB Conc 32.2 g/dL (31.6-35.5); Mean Corpuscular Hemoglobin 29.1 pg (28.0-33.3); Mean Corpuscular Volume 90.3 fL (83.0-100.0); Mean Platelet Volume 9.9 fL (9.4-12.4); Monocytes # 0.8 K/mcL (0.0-1.3); Monocytes % 5.8 %; Neutrophils # 12.4 K/mcL (1.6-8.9); Platelet Count 256 K/mcL (140-400); Red Blood Count 4.23 M/mcL (4.19-5.50); Red Cell Distribution Width 14.6 % (11.5-14.5); Segmented Neutrophils % 86.8 %; White Blood Count 14.2 K/mcL (4.3-11.1)
[2020-01-28 02:14] LABS: INR 1.6; Prothrombin Time 18.3 Seconds (9.4-12.1)
[2020-01-28 02:17] LABS: Activated Partial Thrombo Time 34.6 Seconds (26.0-36.0)
[2020-01-28 02:29] LABS: Alanine Aminotransferase 29 Units/L (7-52); Albumin 3.9 g/dL (3.5-5.7); Albumin/Globulin Ratio 1.1 (1.1-2.2); Alkaline Phosphatase 113 Units/L (34-104); Aspartate Amino Transferase 22 Units/L (13-39); BUN/Creatinine Ratio 26 (6-26); Bilirubin,Total 0.4 mg/dL (0.3-1.0); Blood Urea Nitrogen 29 mg/dL (8-23); Calcium 8.7 mg/dL (8.6-10.3); Carbon Dioxide 21 mEq/L (23-29); Chloride 103 mEq/L (98-107); Creatine Kinase 704 Units/L (30-223); Ethanol < 10 mg/dL (Less than 10); Globulin 3.5 g/dL (2.4-3.5); Glucose 196 mg/dL (70-105); Magnesium 1.2 mg/dL (1.6-2.6); Osmolality,Calculated 293 (280-300); Potassium 4.4 mEq/L (3.5-5.1); Sodium 136 mEq/L (136-145); Total Protein 7.4 g/dL (6.4-8.9); Troponin I 0.06 ng/mL (< 0.04); eGFR For African Americans > 60 (> 60); eGFR For Non-African Americans > 60 (> 60)
[2020-01-28] MEDS ORDERED: Aspirin 81 MG TAB.CHEW PO ONE (02:33)
[2020-01-28 02:39] LABS: Platelet Estimate Normal (Normal)
[2020-01-28] MEDS ORDERED: 0.9 % Sodium Chloride 1,000 ML IVC ONE (03:10)
[2020-01-28] MEDS ORDERED: Clindamycin 600 MG/50 ML 600 MG/50 ML IV.SOLN IVPB STA (03:22)
[2020-01-28 03:25] LABS: Adenovirus Not Detected (Not Detect); Bordetella Pertussis Not Detected (Not Detect); Chlamydophila pneumoniae Not Detected (Not Detect); Coronavirus 229E Not Detected (Not Detect); Coronavirus HKU1 Not Detected (Not Detect); Coronavirus NL63 Not Detected (Not Detect); Coronavirus OC43 Not Detected (Not Detect); Human Metapneumovirus Not Detected (Not Detect); Human Rhinovirus/Enterovirus Not Detected (Not Detect); Influenza A Subtype 2009 H1 Not Detected (Not Detect); Influenza B Not Detected (Not Detect); Mycoplasma pneumoniae Not Detected (Not Detect); Parainfluenza Virus 1 Not Detected (Not Detect); Parainfluenza Virus 2 Not Detected (Not Detect); Parainfluenza Virus 3 Not Detected (Not Detect); Parainfluenza Virus 4 Not Detected (Not Detect); Respiratory Syncytial Virus Not Detected (Not Detect)
[2020-01-28 03:41] LABS: Amphetamine Screen,Urine Negative ng/mL (Cutoff=1000); Barbiturate Screen,Urine Negative ng/mL (Cutoff=200); Benzodiazepines Screen,Urine Negative ng/mL (Cutoff=200); Cannabinoid Screen,Urine Negative ng/mL (Cutoff = 50); Cocaine Screen,Urine Negative ng/mL (Cutoff= 300); Opiate Screen,Urine Positive ng/mL (Cutoff=300); Phencyclidine Screen,Urine Negative ng/mL (Cutoff=25)
[2020-01-28 03:43] LABS: Bilirubin,Urine Negative (Negative); Blood,Urine Moderate (Negative); Clarity,Urine Clear (Clear); Color,Urine Yellow (Yellow); Glucose,Urine (UA) 300 mg/dL (Normal); Ketones,Urine Negative (Negative); Leukocyte Esterase,Urine Negative (Negative); Mucus,Urine Few per lpf (None-Few); Nitrite,Urine Negative (Negative); PH,Urine 5.5 pH Units (5.0-8.0); Protein,Urine 200 mg/dL (Neg-Trace); RBC,Urine 0-3 per hpf (0-3); Specific Gravity,Urine 1.023 (1.010-1.025); Squamous Epithelial Cell,Urine Few per hpf (None-Few); Urobilinogen,Urine Normal (Normal); WBC,Urine 0-3 per hpf (0-3)
[2020-01-28] MEDS ORDERED: Morphine Sulfate 2 MG/ML SYRINGE IVP ONE (04:08)
[2020-01-28] MEDS ORDERED: Naloxone 0.4 MG/ML INJ IVP PRN (06:40)
[2020-01-28] MEDS ORDERED: 0.9 % Sodium Chloride 1,000 ML IVC SCH (06:45)
[2020-01-28] MEDS ORDERED: *HR* Dextrose 50 % in Water (Vial) 50 ML VIAL IVP PRN (07:19)
[2020-01-28] MEDS ORDERED: Dextrose Gel 15 GM/37.5 ML TUBE PO PRN ×2 (07:19)
[2020-01-28] MEDS ORDERED: D5% in Water 1,000 ML IVC PRN (07:19)
[2020-01-28] MEDS ORDERED: Cefepime HCl 1,000 MG in Water for inj. (sterile) 10 ML IVP SCH (07:43)
[2020-01-28] MEDS ORDERED: Acetaminophen 325 MG TABLET PO PRN (07:45)
[2020-01-28] MEDS ORDERED: Vancomycin 2,000 MG/520 ML IV.SOLN IVPB ONE ×2 (08:11→22:00)
[2020-01-28] MEDS: Baclofen 10 MG TABLET PO SCH ×2 (08:37→15:58)
[2020-01-28] MEDS: PARoxetine 20 MG TABLET PO SCH (08:38)
[2020-01-28] MEDS: Cyanocobalamin (B-12) 1,000 MCG TABLET PO SCH (08:38)
[2020-01-28] MEDS: Aspirin Enteric Coated 81 MG Tablet PO SCH (08:38)
[2020-01-28] MEDS: lisinopriL 20 MG TABLET PO SCH (08:38)
[2020-01-28] MEDS: Gabapentin 400 MG CAPSULE PO SCH ×4 (08:41→21:04)
[2020-01-28] MEDS: Insulin LISPRO 300 UNITS/3 ML VIAL SQ SCH ×4 (08:42→21:04)
[2020-01-28 09:45] LABS: Adenovirus Not Detected (Not Detect); Bordetella Pertussis Not Detected (Not Detect); Chlamydophila pneumoniae Not Detected (Not Detect); Coronavirus 229E Not Detected (Not Detect); Coronavirus HKU1 Not Detected (Not Detect); Coronavirus NL63 Not Detected (Not Detect); Coronavirus OC43 Not Detected (Not Detect); Human Metapneumovirus Not Detected (Not Detect); Human Rhinovirus/Enterovirus Not Detected (Not Detect); Influenza A Subtype 2009 H1 Not Detected (Not Detect); Influenza B Not Detected (Not Detect); Mycoplasma pneumoniae Not Detected (Not Detect); Parainfluenza Virus 1 Not Detected (Not Detect); Parainfluenza Virus 2 Not Detected (Not Detect); Parainfluenza Virus 3 Not Detected (Not Detect); Parainfluenza Virus 4 Not Detected (Not Detect); Respiratory Syncytial Virus Not Detected (Not Detect)
[2020-01-28] MEDS: Morphine Sulfate 2 MG/ML SYRINGE IVP PRN (11:50)
[2020-01-28] MEDS ORDERED: Clindamycin 600 MG/50 ML 600 MG/50 ML IV.SOLN IVPB SCH (12:00)
[2020-01-28] MEDS: *HR* Heparin 5,000 UNIT/ML VIAL SQ SCH (17:12)
[2020-01-28] MEDS: Clindamycin 600 MG/50 ML 600 MG/50 ML IV.SOLN IVPB SCH (17:46)
[2020-01-28] MEDS: Mirtazapine 15 MG TABLET PO SCH (21:04)
[2020-01-29] MEDS: Clindamycin 600 MG/50 ML 600 MG/50 ML IV.SOLN IVPB SCH ×2 (00:52→08:00)
[2020-01-29] MEDS: Baclofen 10 MG TABLET PO SCH ×4 (00:53→23:32)
[2020-01-29] MEDS ORDERED: Vancomycin 2,000 MG/520 ML IV.SOLN IVPB ONE (03:00)
[2020-01-29 04:06] LABS: INR 1.8
[2020-01-29 04:09] LABS: Basophils % 0.3 %; Eosinophils # 0.1 K/mcL (0.0-0.6); Eosinophils % 0.6 %; Hematocrit 32.6 % (37.5-50.1); Immature Granulocytes % 0.4 % (0-4); Lymphocytes # 1.1 K/mcL (0.6-4.6); Lymphocytes % 9.7 %; Mean Corpuscular HGB Conc 30.7 g/dL (31.6-35.5); Mean Corpuscular Hemoglobin 28.3 pg (28.0-33.3); Mean Corpuscular Volume 92.4 fL (83.0-100.0); Monocytes # 0.8 K/mcL (0.0-1.3); Monocytes % 7.2 %; Neutrophils # 8.9 K/mcL (1.6-8.9); Platelet Count 213 K/mcL (140-400); Red Blood Count 3.53 M/mcL (4.19-5.50); Red Cell Distribution Width 14.9 % (11.5-14.5); Segmented Neutrophils % 81.8 %; White Blood Count 10.9 K/mcL (4.3-11.1)
[2020-01-29 04:32] LABS: Albumin 3.1 g/dL (3.5-5.7); Albumin/Globulin Ratio 1.1 (1.1-2.2); Bilirubin,Total 0.4 mg/dL (0.3-1.0); Calcium 7.5 mg/dL (8.6-10.3); Globulin 2.8 g/dL (2.4-3.5); Potassium 4.1 mEq/L (3.5-5.1); Total Protein 5.9 g/dL (6.4-8.9)
[2020-01-29] MEDS: *HR* Heparin 5,000 UNIT/ML VIAL SQ SCH ×2 (06:04→16:12)
[2020-01-29] MEDS: Insulin LISPRO 300 UNITS/3 ML VIAL SQ SCH ×4 (07:59→20:50)
[2020-01-29] MEDS: Aspirin Enteric Coated 81 MG Tablet PO SCH (07:59)
[2020-01-29] MEDS: Gabapentin 400 MG CAPSULE PO SCH ×4 (08:00→19:53)
[2020-01-29] MEDS: Cyanocobalamin (B-12) 1,000 MCG TABLET PO SCH (08:00)
[2020-01-29] MEDS: PARoxetine 20 MG TABLET PO SCH (08:00)
[2020-01-29] MEDS: lisinopriL 20 MG TABLET PO SCH (08:00)
[2020-01-29] MEDS ORDERED: Vancomycin 1,500 MG/265 ML IV.SOLN IVPB SCH ×2 (10:00→15:00)
[2020-01-29] MEDS ORDERED: Insulin DETEMIR 100 UNIT/ML X5UNITS SQ ONE (14:14)
[2020-01-29] MEDS: Doxycycline 100 MG in 0.9 % Sodium Chloride Mini Bag 100 ML IVPB SCH (17:31)
[2020-01-29] MEDS ORDERED: Ipratropium/Albuterol Neb 3 ML IH PRN (17:54)
[2020-01-29] MEDS: Mirtazapine 15 MG TABLET PO SCH (19:53)
[2020-01-29] MEDS: Nystatin POWDER 30 GM BOTTLE TP SCH (19:54)
[2020-01-29] MEDS ORDERED: *HR* Heparin 5,000 UNIT/ML VIAL IVP ONE (22:48)
[2020-01-29] MEDS ORDERED: *HR* Heparin 5,000 UNIT/ML VIAL IVP PRN ×2 (22:48)
[2020-01-29] MEDS: Heparin 25,000UNIT/250ML 1/2NS 25,000 UNIT/250 ML IV.SOLN IVC SCH (23:31)
[2020-01-30 01:42] LABS: Hematocrit 34.1 % (37.5-50.1); Hemoglobin 10.8 g/dL (12.9-16.9); Mean Corpuscular HGB Conc 31.7 g/dL (31.6-35.5); Mean Corpuscular Hemoglobin 29.3 pg (28.0-33.3); Mean Corpuscular Volume 92.4 fL (83.0-100.0); Platelet Count 222 K/mcL (140-400); Red Blood Count 3.69 M/mcL (4.19-5.50); Red Cell Distribution Width 14.9 % (11.5-14.5); White Blood Count 8.2 K/mcL (4.3-11.1)
[2020-01-30 01:48] LABS: INR 1.7; Prothrombin Time 18.9 Seconds (9.4-12.1)
[2020-01-30 02:04] LABS: BUN/Creatinine Ratio 29 (6-26); Blood Urea Nitrogen 33 mg/dL (8-23); Carbon Dioxide 22 mEq/L (23-29); Chloride 106 mEq/L (98-107); Creatine Kinase 292 Units/L (30-223); Glucose 281 mg/dL (70-105); Magnesium 1.8 mg/dL (1.6-2.6); Osmolality,Calculated 295 (280-300); Potassium 4.4 mEq/L (3.5-5.1); Sodium 134 mEq/L (136-145); eGFR For African Americans > 60 (> 60); eGFR For Non-African Americans > 60 (> 60)
[2020-01-30 02:17] LABS: Thyroid Stimulating Hormone 1.494 mcIU/mL (0.340-5.600)
[2020-01-30] MEDS: Doxycycline 100 MG in 0.9 % Sodium Chloride Mini Bag 100 ML IVPB SCH ×2 (05:55→17:02)
[2020-01-30 06:08] LABS: Basophils % 0.4 %; Eosinophils # 0.5 K/mcL (0.0-0.6); Eosinophils % 6.5 %; Hemoglobin 10.3 g/dL (12.9-16.9); Immature Granulocytes % 0.4 % (0-4); Lymphocytes # 1.1 K/mcL (0.6-4.6); Lymphocytes % 15.9 %; Mean Corpuscular HGB Conc 31.2 g/dL (31.6-35.5); Mean Corpuscular Hemoglobin 28.5 pg (28.0-33.3); Mean Corpuscular Volume 91.4 fL (83.0-100.0); Mean Platelet Volume 9.8 fL (9.4-12.4); Monocytes # 0.5 K/mcL (0.0-1.3); Monocytes % 7.5 %; Neutrophils # 4.9 K/mcL (1.6-8.9); Platelet Count 216 K/mcL (140-400); Red Blood Count 3.61 M/mcL (4.19-5.50); Red Cell Distribution Width 14.9 % (11.5-14.5); Segmented Neutrophils % 69.3 %; White Blood Count 7.1 K/mcL (4.3-11.1)
[2020-01-30] MEDS: Aspirin Enteric Coated 81 MG Tablet PO SCH (08:04)
[2020-01-30] MEDS: Insulin LISPRO 300 UNITS/3 ML VIAL SQ SCH ×4 (08:04→19:58)
[2020-01-30] MEDS: Insulin DETEMIR 100 UNIT/ML X5UNITS SQ SCH (08:04)
[2020-01-30] MEDS: Gabapentin 400 MG CAPSULE PO SCH ×4 (08:05→19:57)
[2020-01-30] MEDS: PARoxetine 20 MG TABLET PO SCH (08:05)
[2020-01-30] MEDS: Baclofen 10 MG TABLET PO SCH ×2 (08:05→16:58)
[2020-01-30] MEDS: Nystatin POWDER 30 GM BOTTLE TP SCH ×2 (08:06→19:58)
[2020-01-30] MEDS: Cyanocobalamin (B-12) 1,000 MCG TABLET PO SCH (08:06)
[2020-01-30 08:48] LABS: Estimated Average Glucose 217 mg/dl
[2020-01-30 12:06] LABS: Hemoglobin 10.5 g/dL (12.9-16.9)
[2020-01-30] MEDS: lisinopriL 20 MG TABLET PO SCH (12:49)
[2020-01-30] MEDS: Heparin 25,000UNIT/250ML 1/2NS 25,000 UNIT/250 ML IV.SOLN IVC SCH (13:16)
[2020-01-30] MEDS ORDERED: *HR* Rivaroxaban 15 MG TABLET PO SCH (17:00)
[2020-01-30] MEDS: *HR* Enoxaparin 150 MG/ML SYRINGE SQ SCH (17:02)
[2020-01-30 17:34] LABS: INR 1.5; Prothrombin Time 16.7 Seconds (9.4-12.1)
[2020-01-30] MEDS ORDERED: *HR* Warfarin 5 MG TABLET PO ONE (18:00)
[2020-01-30] MEDS ORDERED: Warfarin perPT PO PRN (18:00)
[2020-01-30 18:12] LABS: Hemoglobin 10.7 g/dL (12.9-16.9)
[2020-01-30] MEDS: Mirtazapine 15 MG TABLET PO SCH (19:57)
[2020-01-30 21:27] LABS: Hematocrit 33.6 % (37.5-50.1); Hemoglobin 10.7 g/dL (12.9-16.9)
[2020-01-30] MEDS: Morphine Sulfate 2 MG/ML SYRINGE IVP PRN (22:19)
[2020-01-31] MEDS: Baclofen 10 MG TABLET PO SCH ×4 (00:09→23:35)
[2020-01-31] MEDS: Doxycycline 100 MG in 0.9 % Sodium Chloride Mini Bag 100 ML IVPB SCH ×2 (04:56→18:39)
[2020-01-31] MEDS: Morphine Sulfate 2 MG/ML SYRINGE IVP PRN ×3 (04:56→21:25)
[2020-01-31] MEDS: *HR* Enoxaparin 150 MG/ML SYRINGE SQ SCH ×2 (05:02→18:38)
[2020-01-31 05:13] LABS: Basophils % 0.3 %; Eosinophils # 0.4 K/mcL (0.0-0.6); Eosinophils % 6.6 %; Hematocrit 33.6 % (37.5-50.1); Hemoglobin 10.7 g/dL (12.9-16.9); Immature Granulocytes % 0.5 % (0-4); Lymphocytes % 16.2 %; Mean Corpuscular HGB Conc 31.8 g/dL (31.6-35.5); Mean Corpuscular Hemoglobin 29.3 pg (28.0-33.3); Mean Corpuscular Volume 92.1 fL (83.0-100.0); Mean Platelet Volume 9.6 fL (9.4-12.4); Monocytes # 0.6 K/mcL (0.0-1.3); Monocytes % 9.7 %; Neutrophils # 4.1 K/mcL (1.6-8.9); Platelet Count 223 K/mcL (140-400); Red Blood Count 3.65 M/mcL (4.19-5.50); Red Cell Distribution Width 14.5 % (11.5-14.5); Segmented Neutrophils % 66.7 %; White Blood Count 6.2 K/mcL (4.3-11.1)
[2020-01-31 05:25] LABS: INR 1.6; Prothrombin Time 17.9 Seconds (9.4-12.1)
[2020-01-31 05:34] LABS: BUN/Creatinine Ratio 24 (6-26); Blood Urea Nitrogen 24 mg/dL (8-23); Calcium 8.5 mg/dL (8.6-10.3); Carbon Dioxide 25 mEq/L (23-29); Chloride 105 mEq/L (98-107); Glucose 243 mg/dL (70-105); Magnesium 1.6 mg/dL (1.6-2.6); Osmolality,Calculated 290 (280-300); Potassium 5.1 mEq/L (3.5-5.1); Sodium 134 mEq/L (136-145); eGFR For African Americans > 60 (> 60); eGFR For Non-African Americans > 60 (> 60)
[2020-01-31] MEDS: Aspirin Enteric Coated 81 MG Tablet PO SCH (07:54)
[2020-01-31] MEDS: Insulin LISPRO 300 UNITS/3 ML VIAL SQ SCH ×4 (07:54→19:42)
[2020-01-31] MEDS: Gabapentin 400 MG CAPSULE PO SCH ×4 (07:54→19:44)
[2020-01-31] MEDS: Cyanocobalamin (B-12) 1,000 MCG TABLET PO SCH (07:54)
[2020-01-31] MEDS: PARoxetine 20 MG TABLET PO SCH (07:54)
[2020-01-31] MEDS: Insulin DETEMIR 100 UNIT/ML X5UNITS SQ SCH (08:35)
[2020-01-31] MEDS: Nystatin POWDER 30 GM BOTTLE TP SCH ×2 (12:49→19:44)
[2020-01-31] MEDS ORDERED: D5% in Water 1,000 ML IVC PRN (13:11)
[2020-01-31] MEDS ORDERED: *HR* Dextrose 50 % in Water (Vial) 50 ML VIAL IVP PRN (13:11)
[2020-01-31] MEDS ORDERED: Dextrose Gel 15 GM/37.5 ML TUBE PO PRN ×2 (13:11)
[2020-01-31] MEDS ORDERED: *HR* Warfarin 2.5 MG TABLET PO ONE (18:00)
[2020-01-31] MEDS: Mirtazapine 15 MG TABLET PO SCH (19:44)
[2020-02-01 03:29] LABS: Basophils % 0.3 %; Eosinophils # 0.4 K/mcL (0.0-0.6); Eosinophils % 5.7 %; Hematocrit 33.8 % (37.5-50.1); Hemoglobin 10.8 g/dL (12.9-16.9); Immature Granulocytes % 0.5 % (0-4); Lymphocytes % 14.9 %; Mean Corpuscular Hemoglobin 28.3 pg (28.0-33.3); Mean Corpuscular Volume 88.7 fL (83.0-100.0); Mean Platelet Volume 9.5 fL (9.4-12.4); Monocytes # 0.7 K/mcL (0.0-1.3); Neutrophils # 4.5 K/mcL (1.6-8.9); Platelet Count 227 K/mcL (140-400); Red Blood Count 3.81 M/mcL (4.19-5.50); Red Cell Distribution Width 14.3 % (11.5-14.5); Segmented Neutrophils % 68.6 %; White Blood Count 6.5 K/mcL (4.3-11.1)
[2020-02-01 03:43] LABS: INR 1.8; Prothrombin Time 20.3 Seconds (9.4-12.1)
[2020-02-01 03:55] LABS: BUN/Creatinine Ratio 24 (6-26); Blood Urea Nitrogen 22 mg/dL (8-23); Calcium 8.8 mg/dL (8.6-10.3); Carbon Dioxide 27 mEq/L (23-29); Chloride 102 mEq/L (98-107); Glucose 281 mg/dL (70-105); Magnesium 1.3 mg/dL (1.6-2.6); Osmolality,Calculated 287 (280-300); Potassium 5.3 mEq/L (3.5-5.1); Sodium 132 mEq/L (136-145); eGFR For African Americans > 60 (> 60); eGFR For Non-African Americans > 60 (> 60)
[2020-02-01] MEDS: Morphine Sulfate 2 MG/ML SYRINGE IVP PRN ×3 (04:40→23:51)
[2020-02-01] MEDS: *HR* Enoxaparin 150 MG/ML SYRINGE SQ SCH ×2 (04:40→16:41)
[2020-02-01] MEDS: Doxycycline 100 MG in 0.9 % Sodium Chloride Mini Bag 100 ML IVPB SCH (04:40)
[2020-02-01] MEDS: Insulin LISPRO 300 UNITS/3 ML VIAL SQ SCH ×4 (08:08→21:09)
[2020-02-01] MEDS: Gabapentin 400 MG CAPSULE PO SCH ×4 (08:10→21:08)
[2020-02-01] MEDS: Nystatin POWDER 30 GM BOTTLE TP SCH ×2 (08:10→21:12)
[2020-02-01] MEDS: Baclofen 10 MG TABLET PO SCH ×3 (08:10→23:47)
[2020-02-01] MEDS: Aspirin Enteric Coated 81 MG Tablet PO SCH (08:10)
[2020-02-01] MEDS: Cyanocobalamin (B-12) 1,000 MCG TABLET PO SCH (08:10)
[2020-02-01] MEDS: PARoxetine 20 MG TABLET PO SCH (08:10)
[2020-02-01] MEDS: Insulin DETEMIR 100 UNIT/ML X5UNITS SQ SCH ×2 (08:10→21:09)
[2020-02-01] MEDS: lisinopriL 20 MG TABLET PO SCH (09:51)
[2020-02-01] MEDS ORDERED: Calcium Gluconate 1gm/50mL 1 GM/50 ML BAG IVPB ONE (10:37)
[2020-02-01] MEDS ORDERED: Insulin Human Regular 10 UNIT in 0.9 % Sodium Chloride 10 ML IV ONE (10:47)
[2020-02-01] MEDS ORDERED: *HR* Dextrose 50 % in Water (Vial) 50 ML VIAL IVP ONE (10:47)
[2020-02-01] MEDS ORDERED: Leptospermum Honey GEL 1 APPL/5 ML MLS TP SCH (16:15)
[2020-02-01] MEDS: amLODIPine 5 MG TABLET PO SCH (16:33)
[2020-02-01] MEDS: cephALEXin 500 MG CAPSULE PO SCH ×2 (16:34→21:08)
[2020-02-01] MEDS ORDERED: *HR* Warfarin 2.5 MG TABLET PO ONE (18:00)
[2020-02-01] MEDS: Leptospermum Honey Gel 44 ML TUBE TP SCH (18:30)
[2020-02-01] MEDS ORDERED: Albuterol 2.5 MG/3 ML NEBULIZER IH ONE (18:50)
[2020-02-01] MEDS: Mirtazapine 15 MG TABLET PO SCH (21:09)
[2020-02-01] MEDS: Doxycycline 100 MG CAPSULE PO SCH (21:10)
[2020-02-02] MEDS: *HR* Enoxaparin 150 MG/ML SYRINGE SQ SCH ×2 (05:16→18:12)
[2020-02-02 07:28] LABS: Basophils % 0.4 %; Eosinophils # 0.4 K/mcL (0.0-0.6); Eosinophils % 5.7 %; Hematocrit 37.3 % (37.5-50.1); Hemoglobin 11.8 g/dL (12.9-16.9); Immature Granulocytes % 0.9 % (0-4); Lymphocytes % 13.9 %; Mean Corpuscular HGB Conc 31.6 g/dL (31.6-35.5); Mean Corpuscular Volume 91.6 fL (83.0-100.0); Mean Platelet Volume 9.4 fL (9.4-12.4); Monocytes # 0.6 K/mcL (0.0-1.3); Monocytes % 8.1 %; Neutrophils # 4.9 K/mcL (1.6-8.9); Platelet Count 249 K/mcL (140-400); Red Blood Count 4.07 M/mcL (4.19-5.50); Red Cell Distribution Width 14.2 % (11.5-14.5); White Blood Count 6.8 K/mcL (4.3-11.1)
[2020-02-02 07:39] LABS: INR 2.2
[2020-02-02 08:01] LABS: BUN/Creatinine Ratio 23 (6-26); Blood Urea Nitrogen 20 mg/dL (8-23); Calcium 9.3 mg/dL (8.6-10.3); Carbon Dioxide 29 mEq/L (23-29); Chloride 99 mEq/L (98-107); Creatine Kinase 68 Units/L (30-223); Glucose 215 mg/dL (70-105); Magnesium 1.2 mg/dL (1.6-2.6); Osmolality,Calculated 285 (280-300); Sodium 133 mEq/L (136-145); eGFR For African Americans > 60 (> 60); eGFR For Non-African Americans > 60 (> 60)
[2020-02-02] MEDS: Gabapentin 400 MG CAPSULE PO SCH ×4 (08:03→20:35)
[2020-02-02] MEDS: PARoxetine 20 MG TABLET PO SCH (08:03)
[2020-02-02] MEDS: Aspirin Enteric Coated 81 MG Tablet PO SCH (08:03)
[2020-02-02] MEDS: amLODIPine 5 MG TABLET PO SCH (08:03)
[2020-02-02] MEDS: Baclofen 10 MG TABLET PO SCH ×3 (08:04→22:59)
[2020-02-02] MEDS: Cyanocobalamin (B-12) 1,000 MCG TABLET PO SCH (08:04)
[2020-02-02] MEDS: cephALEXin 500 MG CAPSULE PO SCH ×3 (08:04→20:35)
[2020-02-02] MEDS: Doxycycline 100 MG CAPSULE PO SCH ×2 (08:04→20:35)
[2020-02-02] MEDS: Insulin LISPRO 300 UNITS/3 ML VIAL SQ SCH ×5 (08:05→20:36)
[2020-02-02] MEDS: Insulin DETEMIR 100 UNIT/ML X5UNITS SQ SCH ×2 (08:05→20:36)
[2020-02-02] MEDS: Nystatin POWDER 30 GM BOTTLE TP SCH ×2 (11:26→20:36)
[2020-02-02] MEDS: Leptospermum Honey Gel 44 ML TUBE TP SCH (11:26)
[2020-02-02] MEDS: Morphine Sulfate 2 MG/ML SYRINGE IVP PRN ×2 (11:27→20:42)
[2020-02-02] MEDS: Mirtazapine 15 MG TABLET PO SCH (20:35)
[2020-02-03] MEDS: *HR* Enoxaparin 150 MG/ML SYRINGE SQ SCH (03:19)
[2020-02-03] MEDS: Morphine Sulfate 2 MG/ML SYRINGE IVP PRN ×2 (03:19→10:45)
[2020-02-03 03:53] LABS: Basophils % 0.5 %; Eosinophils # 0.4 K/mcL (0.0-0.6); Eosinophils % 5.3 %; Hematocrit 36.7 % (37.5-50.1); Hemoglobin 11.6 g/dL (12.9-16.9); Immature Granulocytes % 0.8 % (0-4); Lymphocytes % 13.1 %; Mean Corpuscular HGB Conc 31.6 g/dL (31.6-35.5); Mean Corpuscular Hemoglobin 28.3 pg (28.0-33.3); Mean Corpuscular Volume 89.5 fL (83.0-100.0); Mean Platelet Volume 9.6 fL (9.4-12.4); Monocytes # 0.6 K/mcL (0.0-1.3); Monocytes % 8.5 %; Neutrophils # 5.3 K/mcL (1.6-8.9); Platelet Count 278 K/mcL (140-400); Red Cell Distribution Width 14.3 % (11.5-14.5); Segmented Neutrophils % 71.8 %; White Blood Count 7.3 K/mcL (4.3-11.1)
[2020-02-03 04:00] LABS: INR 1.7; Prothrombin Time 19.5 Seconds (9.4-12.1)
[2020-02-03 04:13] LABS: BUN/Creatinine Ratio 24 (6-26); Blood Urea Nitrogen 23 mg/dL (8-23); Calcium 8.9 mg/dL (8.6-10.3); Carbon Dioxide 29 mEq/L (23-29); Chloride 97 mEq/L (98-107); Glucose 236 mg/dL (70-105); Magnesium 1.7 mg/dL (1.6-2.6); Osmolality,Calculated 283 (280-300); Potassium 5.2 mEq/L (3.5-5.1); Sodium 131 mEq/L (136-145); eGFR For African Americans > 60 (> 60); eGFR For Non-African Americans > 60 (> 60)
[2020-02-03] MEDS: PARoxetine 20 MG TABLET PO SCH (08:11)
[2020-02-03] MEDS: Doxycycline 100 MG CAPSULE PO SCH (08:11)
[2020-02-03] MEDS: cephALEXin 500 MG CAPSULE PO SCH ×2 (08:11→13:54)
[2020-02-03] MEDS: Aspirin Enteric Coated 81 MG Tablet PO SCH (08:11)
[2020-02-03] MEDS: Cyanocobalamin (B-12) 1,000 MCG TABLET PO SCH (08:11)
[2020-02-03] MEDS: Baclofen 10 MG TABLET PO SCH ×2 (08:11→16:10)
[2020-02-03] MEDS: Gabapentin 400 MG CAPSULE PO SCH ×3 (08:11→17:15)
[2020-02-03] MEDS: Insulin LISPRO 300 UNITS/3 ML VIAL SQ SCH ×6 (08:15→16:10)
[2020-02-03] MEDS: Insulin DETEMIR 100 UNIT/ML X5UNITS SQ SCH (08:16)
[2020-02-03] MEDS ORDERED: amLODIPine 5 MG TABLET PO SCH (09:00)
[2020-02-03] MEDS: Nystatin POWDER 30 GM BOTTLE TP SCH (13:55)
[2020-02-03] MEDS: Leptospermum Honey Gel 44 ML TUBE TP SCH (13:55)
[2020-02-03 15:40] VITALS: BP 147/66
== END 2020-02-03 18:03 | DRG 562 ==
LOC: 2ANU 00:43 → EMEROOARM 00:43 → SUATTDRO 06:15 → 2ANU 06:37 → SUATTDRO 01-29 11:38
PROVIDERS: ADMIT Internal Medicine; ATTEND Internal Medicine

== ENCOUNTER 2020-02-26 19:30 | Inpatient (IN) ==
[2020-02-26] MEDS ORDERED: 0.9 % Sodium Chloride 250 ML IVC ONE (19:37)
[2020-02-26 20:01] LABS: Eosinophils % 1.3 %; Hemoglobin 9.3 g/dL (12.9-16.9); Immature Granulocytes % 0.5 % (0-4); Lymphocytes % 6.5 %; Mean Corpuscular Hemoglobin 28.3 pg (28.0-33.3); Mean Corpuscular Volume 91.2 fL (83.0-100.0); Mean Platelet Volume 8.9 fL (9.4-12.4); Monocytes % 6.5 %; Platelet Count 351 K/mcL (140-400); Red Blood Count 3.29 M/mcL (4.19-5.50); Red Cell Distribution Width 15.4 % (11.5-14.5); Segmented Neutrophils % 84.9 %; White Blood Count 11.7 K/mcL (4.3-11.1)
[2020-02-26 20:02] LABS: Basophils % 0.3 %; Eosinophils # 0.2 K/mcL (0.0-0.6); Lymphocytes # 0.8 K/mcL (0.6-4.6); Monocytes # 0.8 K/mcL (0.0-1.3); Neutrophils # 9.9 K/mcL (1.6-8.9)
[2020-02-26 20:15] LABS: Alanine Aminotransferase 23 Units/L (7-52); Albumin/Globulin Ratio 1.3 (1.1-2.2); Alkaline Phosphatase 133 Units/L (34-104); Aspartate Amino Transferase 19 Units/L (13-39); BUN/Creatinine Ratio 22 (6-26); Bilirubin,Total 0.5 mg/dL (0.3-1.0); Blood Urea Nitrogen 41 mg/dL (8-23); Calcium 8.7 mg/dL (8.6-10.3); Carbon Dioxide 23 mEq/L (23-29); Chloride 102 mEq/L (98-107); Globulin 3.2 g/dL (2.4-3.5); Glucose 109 mg/dL (70-105); Osmolality,Calculated 297 (280-300); Potassium 4.1 mEq/L (3.5-5.1); Sodium 138 mEq/L (136-145); Total Protein 7.2 g/dL (6.4-8.9); eGFR For African Americans 45 (> 60); eGFR For Non-African Americans 37 (> 60)
[2020-02-26 20:16] LABS: Troponin I < 0.03 ng/mL (< 0.04)
[2020-02-26] MEDS ORDERED: *HR* Dextrose 50 % in Water (Vial) 50 ML VIAL IVP ONE ×2 (20:23→21:53)
[2020-02-26] MEDS ORDERED: 0.9 % Sodium Chloride 1,000 ML IVC ONE ×2 (20:42→21:46)
[2020-02-26 20:56] LABS: Bilirubin,Urine Small (Negative); Blood,Urine Negative (Negative); Clarity,Urine Clear (Clear); Color,Urine Yellow (Yellow); Glucose,Urine (UA) Normal (Normal); Ketones,Urine Negative (Negative); Leukocyte Esterase,Urine Negative (Negative); Nitrite,Urine Negative (Negative); Protein,Urine Trace mg/dL (Neg-Trace); Specific Gravity,Urine 1.025 (1.010-1.025); Urobilinogen,Urine Normal (Normal)
[2020-02-26 21:00] LABS: Bacteria,Urine Few per hpf (None-Few); Hyaline Casts,Urine Many per lpf (None Seen); Mucus,Urine Few per lpf (None-Few); RBC,Urine 0-3 per hpf (0-3); Squamous Epithelial Cell,Urine Few per hpf (None-Few); WBC,Urine 0-3 per hpf (0-3)
[2020-02-26 23:29] LABS: Adenovirus Not Detected (Not Detect); Bordetella Pertussis Not Detected (Not Detect); Chlamydophila pneumoniae Not Detected (Not Detect); Coronavirus 229E Not Detected (Not Detect); Coronavirus HKU1 Not Detected (Not Detect); Coronavirus NL63 Not Detected (Not Detect); Coronavirus OC43 Not Detected (Not Detect); Human Metapneumovirus Not Detected (Not Detect); Human Rhinovirus/Enterovirus Not Detected (Not Detect); Influenza A Subtype 2009 H1 Not Detected (Not Detect); Influenza B Not Detected (Not Detect); Mycoplasma pneumoniae Not Detected (Not Detect); Parainfluenza Virus 1 Not Detected (Not Detect); Parainfluenza Virus 2 Not Detected (Not Detect); Parainfluenza Virus 3 Not Detected (Not Detect); Parainfluenza Virus 4 Not Detected (Not Detect); Respiratory Syncytial Virus Not Detected (Not Detect); SARS-CoV-2 Not Detected (Not Detect)
[2020-02-26 23:37] LABS: Creatine Kinase 93 Units/L (30-223)
[2020-02-27] MEDS ORDERED: *HR* Dextrose 50 % in Water (Vial) 50 ML VIAL IVP ONE (00:03)
[2020-02-27] MEDS ORDERED: *HR* Dextrose 50 % in Water (Vial) 50 ML VIAL ONE (00:06)
[2020-02-27] MEDS ORDERED: Ondansetron 4 MG/2 ML VIAL IVP PRN (00:08)
[2020-02-27] MEDS ORDERED: Naloxone 0.4 MG/ML INJ IVP PRN (00:08)
[2020-02-27] MEDS ORDERED: D10% in Water 500 ML ONE (01:42)
[2020-02-27] MEDS ORDERED: D5% in 0.45% NACL 1,000 ML IVC SCH (01:45)
[2020-02-27] MEDS ORDERED: *HR* Dextrose 50 % in Water (Vial) 50 ML VIAL IVP PRN (01:47)
[2020-02-27] MEDS ORDERED: Dextrose Gel 15 GM/37.5 ML TUBE PO PRN ×2 (01:47)
[2020-02-27] MEDS ORDERED: D5% in Water 1,000 ML IVC PRN (01:47)
[2020-02-27] MEDS: D5% in 0.45% NACL 1,000 ML IVC SCH ×2 (02:34→12:20)
[2020-02-27 02:54] LABS: Basophils % 0.3 %; Eosinophils # 0.1 K/mcL (0.0-0.6); Eosinophils % 0.9 %; Hemoglobin 8.7 g/dL (12.9-16.9); Immature Granulocytes % 0.3 % (0-4); Lymphocytes # 1.1 K/mcL (0.6-4.6); Lymphocytes % 14.1 %; Mean Corpuscular Hemoglobin 27.6 pg (28.0-33.3); Mean Corpuscular Volume 92.1 fL (83.0-100.0); Mean Platelet Volume 8.8 fL (9.4-12.4); Monocytes # 0.5 K/mcL (0.0-1.3); Monocytes % 5.7 %; Neutrophils # 6.3 K/mcL (1.6-8.9); Platelet Count 303 K/mcL (140-400); Red Blood Count 3.15 M/mcL (4.19-5.50); Red Cell Distribution Width 15.6 % (11.5-14.5); Segmented Neutrophils % 78.7 %; White Blood Count 7.9 K/mcL (4.3-11.1)
[2020-02-27 02:56] LABS: Prothrombin Time 22.6 Seconds (9.4-12.1)
[2020-02-27 03:09] LABS: Magnesium 1.5 mg/dL (1.6-2.6); Phosphorous 5.2 mg/dL (2.7-4.5); Potassium 4.4 mEq/L (3.5-5.1)
[2020-02-27] MEDS ORDERED: *HR* Heparin 5,000 UNIT/ML VIAL IVP PRN ×2 (06:43)
[2020-02-27 10:21] LABS: Hematocrit 31.6 % (37.5-50.1); Hemoglobin 9.4 g/dL (12.9-16.9); Mean Corpuscular HGB Conc 29.7 g/dL (31.6-35.5); Mean Corpuscular Hemoglobin 27.5 pg (28.0-33.3); Mean Corpuscular Volume 92.4 fL (83.0-100.0); Mean Platelet Volume 9.3 fL (9.4-12.4); Platelet Count 327 K/mcL (140-400); Red Blood Count 3.42 M/mcL (4.19-5.50); Red Cell Distribution Width 15.7 % (11.5-14.5)
[2020-02-27] MEDS: Heparin 25,000UNIT/250ML 1/2NS 25,000 UNIT/250 ML IV.SOLN IVC SCH (10:29)
[2020-02-27] MEDS ORDERED: Perflutren Lipid Microsphere 1.3 ML in 0.9 % Sodium Chloride 8.7 ML IVP PRN (11:43)
[2020-02-27] MEDS ORDERED: Acetaminophen 325 MG TABLET PO PRN (15:18)
[2020-02-27] MEDS: Insulin LISPRO 300 UNITS/3 ML VIAL SQ SCH ×2 (17:23→21:22)
[2020-02-27] MEDS ORDERED: Warfarin perPT PO PRN (18:00)
[2020-02-27] MEDS ORDERED: *HR* Warfarin 5 MG TABLET PO ONE (18:00)
[2020-02-27] MEDS ORDERED: Insulin LISPRO 300 UNITS/3 ML VIAL SQ SCH (18:00)
[2020-02-27] MEDS ORDERED: *HR* OxyCODONE/APAP 7.5/325 TABLET PO ONE (21:40)
[2020-02-27] MEDS ORDERED: Acetaminophen IV 1,000 MG/100 ML INFUS..BTL IVPB ONE (21:48)
[2020-02-27] MEDS ORDERED: *HR* Promethazine 25 MG/ML VIAL IVP ONE (23:34)
[2020-02-28] MEDS: Heparin 25,000UNIT/250ML 1/2NS 25,000 UNIT/250 ML IV.SOLN IVC SCH (00:53)
[2020-02-28 01:46] LABS: Basophils % 0.4 %; Eosinophils # 0.2 K/mcL (0.0-0.6); Eosinophils % 2.9 %; Hematocrit 34.2 % (37.5-50.1); Hemoglobin 10.4 g/dL (12.9-16.9); Immature Granulocytes % 0.4 % (0-4); Lymphocytes % 12.6 %; Mean Corpuscular HGB Conc 30.4 g/dL (31.6-35.5); Mean Corpuscular Hemoglobin 27.2 pg (28.0-33.3); Mean Corpuscular Volume 89.5 fL (83.0-100.0); Mean Platelet Volume 8.9 fL (9.4-12.4); Monocytes # 0.5 K/mcL (0.0-1.3); Monocytes % 5.8 %; Neutrophils # 6.5 K/mcL (1.6-8.9); Platelet Count 369 K/mcL (140-400); Red Blood Count 3.82 M/mcL (4.19-5.50); Red Cell Distribution Width 15.7 % (11.5-14.5); Segmented Neutrophils % 77.9 %; White Blood Count 8.3 K/mcL (4.3-11.1)
[2020-02-28 01:56] LABS: INR 2.3; Prothrombin Time 25.7 Seconds (9.4-12.1)
[2020-02-28 01:59] LABS: Activated Partial Thrombo Time 56.7 Seconds (26.0-36.0)
[2020-02-28 02:06] LABS: BUN/Creatinine Ratio 26 (6-26); Blood Urea Nitrogen 23 mg/dL (8-23); Calcium 9.1 mg/dL (8.6-10.3); Carbon Dioxide 28 mEq/L (23-29); Chloride 104 mEq/L (98-107); Glucose 154 mg/dL (70-105); Osmolality,Calculated 297 (280-300); Potassium 4.3 mEq/L (3.5-5.1); Sodium 140 mEq/L (136-145); eGFR For African Americans > 60 (> 60); eGFR For Non-African Americans > 60 (> 60)
[2020-02-28] MEDS ORDERED: Prochlorperazine 10 MG/2 ML VIAL IVP PRN (03:33)
[2020-02-28 03:50] LABS: Hematocrit 36.2 % (37.5-50.1); Hemoglobin 11.1 g/dL (12.9-16.9)
[2020-02-28] MEDS ORDERED: Isovue-370 500 ML BOTTLE IVP ONE (03:54)
[2020-02-28] MEDS: Pantoprazole 40 MG in 0.9 % Sodium Chloride Mini Bag 100 ML IVC SCH ×4 (04:54→21:31)
[2020-02-28] MEDS: Insulin LISPRO 300 UNITS/3 ML VIAL SQ SCH ×4 (09:23→20:25)
[2020-02-28 09:25] LABS: Hematocrit 32.1 % (37.5-50.1); Hemoglobin 9.9 g/dL (12.9-16.9)
[2020-02-28] MEDS ORDERED: Acetaminophen IV 1,000 MG/100 ML INFUS..BTL IVPB ONE (09:44)
[2020-02-28 13:39] LABS: Hematocrit 31.7 % (37.5-50.1); Hemoglobin 9.5 g/dL (12.9-16.9)
[2020-02-28 17:19] LABS: Hematocrit 31.3 % (37.5-50.1); Hemoglobin 9.6 g/dL (12.9-16.9)
[2020-02-28] MEDS: Gabapentin 400 MG CAPSULE PO SCH (21:29)
[2020-02-28] MEDS: Mirtazapine 15 MG TABLET PO SCH (21:29)
[2020-02-29] MEDS ORDERED: Melatonin 3 MG TABLET PO ONE ×2 (00:43→21:59)
[2020-02-29 00:55] LABS: Basophils % 0.5 %; Eosinophils % 1.9 %; Hematocrit 32.1 % (37.5-50.1); Hemoglobin 9.7 g/dL (12.9-16.9); Immature Granulocytes % 0.4 % (0-4); Lymphocytes % 14.8 %; Mean Corpuscular HGB Conc 30.2 g/dL (31.6-35.5); Mean Corpuscular Hemoglobin 27.4 pg (28.0-33.3); Mean Corpuscular Volume 90.7 fL (83.0-100.0); Mean Platelet Volume 8.5 fL (9.4-12.4); Monocytes % 7.5 %; Platelet Count 302 K/mcL (140-400); Red Blood Count 3.54 M/mcL (4.19-5.50); Red Cell Distribution Width 15.3 % (11.5-14.5); Segmented Neutrophils % 74.9 %; White Blood Count 7.4 K/mcL (4.3-11.1)
[2020-02-29 00:56] LABS: Eosinophils # 0.1 K/mcL (0.0-0.6); Lymphocytes # 1.1 K/mcL (0.6-4.6); Monocytes # 0.6 K/mcL (0.0-1.3); Neutrophils # 5.6 K/mcL (1.6-8.9)
[2020-02-29 01:14] LABS: BUN/Creatinine Ratio 22 (6-26); Blood Urea Nitrogen 17 mg/dL (8-23); Carbon Dioxide 28 mEq/L (23-29); Chloride 101 mEq/L (98-107); Glucose 136 mg/dL (70-105); Osmolality,Calculated 286 (280-300); Potassium 3.5 mEq/L (3.5-5.1); Sodium 136 mEq/L (136-145); eGFR For African Americans > 60 (> 60); eGFR For Non-African Americans > 60 (> 60)
[2020-02-29] MEDS: Pantoprazole 40 MG in 0.9 % Sodium Chloride Mini Bag 100 ML IVC SCH ×3 (02:24→09:57)
[2020-02-29 09:48] LABS: Heparin anti-factor XA UFH 0.11 IU/mL (0.30-0.70)
[2020-02-29] MEDS: Insulin LISPRO 300 UNITS/3 ML VIAL SQ SCH ×4 (09:57→22:05)
[2020-02-29] MEDS: Gabapentin 400 MG CAPSULE PO SCH ×3 (09:58→22:08)
[2020-02-29 10:04] LABS: INR 5.2; Prothrombin Time 58.9 Seconds (9.4-12.1)
[2020-02-29] MEDS: Pantoprazole 40 MG VIAL IVP SCH (18:33)
[2020-02-29] MEDS: Mirtazapine 15 MG TABLET PO SCH (22:08)
[2020-03-01] MEDS ORDERED: Morphine Sulfate 2 MG/ML SYRINGE IVP ONE (02:30)
[2020-03-01 03:16] LABS: Basophils % 0.6 %; Eosinophils # 0.5 K/mcL (0.0-0.6); Eosinophils % 7.2 %; Hematocrit 32.7 % (37.5-50.1); Hemoglobin 9.9 g/dL (12.9-16.9); Immature Granulocytes % 0.3 % (0-4); Lymphocytes # 1.4 K/mcL (0.6-4.6); Lymphocytes % 21.8 %; Mean Corpuscular HGB Conc 30.3 g/dL (31.6-35.5); Mean Corpuscular Hemoglobin 27.7 pg (28.0-33.3); Mean Corpuscular Volume 91.6 fL (83.0-100.0); Mean Platelet Volume 9.3 fL (9.4-12.4); Monocytes # 0.5 K/mcL (0.0-1.3); Monocytes % 7.8 %; Neutrophils # 4.1 K/mcL (1.6-8.9); Platelet Count 309 K/mcL (140-400); Red Blood Count 3.57 M/mcL (4.19-5.50); Red Cell Distribution Width 15.3 % (11.5-14.5); Segmented Neutrophils % 62.3 %; White Blood Count 6.6 K/mcL (4.3-11.1)
[2020-03-01 03:17] LABS: INR 2.6; Prothrombin Time 29.8 Seconds (9.4-12.1)
[2020-03-01 03:39] LABS: BUN/Creatinine Ratio 20 (6-26); Blood Urea Nitrogen 16 mg/dL (8-23); Calcium 8.9 mg/dL (8.6-10.3); Carbon Dioxide 28 mEq/L (23-29); Chloride 98 mEq/L (98-107); Glucose 169 mg/dL (70-105); Osmolality,Calculated 283 (280-300); Potassium 4.1 mEq/L (3.5-5.1); Sodium 134 mEq/L (136-145); eGFR For African Americans > 60 (> 60); eGFR For Non-African Americans > 60 (> 60)
[2020-03-01] MEDS: Pantoprazole 40 MG VIAL IVP SCH (05:17)
[2020-03-01] MEDS: Gabapentin 400 MG CAPSULE PO SCH ×2 (08:05→16:33)
[2020-03-01] MEDS: Insulin LISPRO 300 UNITS/3 ML VIAL SQ SCH ×3 (08:05→16:33)
[2020-03-01] MEDS: Nitrofurantoin (BID) 100 MG CAPSULE PO SCH ×2 (09:24→16:33)
[2020-03-01 11:14] VITALS: BP 115/76
== END 2020-03-01 18:39 | disposition other institution (70) | DRG 637 ==
LOC: EMEROOARM 19:30 → 3ANU 19:30 → SUATTDRO 23:50 → 3ANU 02-27 01:10 → SUATTDRO 02-27 16:54
PROVIDERS: ADMIT Internal Medicine; ATTEND Internal Medicine

== ENCOUNTER 2021-02-16 18:59 | Inpatient (IN) ==
[2021-02-16 20:19] LABS: Basophils # 0.1 K/mcL (0.0-0.2); Basophils % 0.3 %; Eosinophils % 0.1 %; Hematocrit 41.6 % (37.5-50.1); Hemoglobin 13.7 g/dL (12.9-16.9); Immature Granulocytes % 0.5 % (0-4); Lymphocytes # 1.1 K/mcL (0.6-4.6); Lymphocytes % 6.3 %; Mean Corpuscular HGB Conc 32.9 g/dL (31.6-35.5); Mean Corpuscular Hemoglobin 29.3 pg (28.0-33.3); Mean Corpuscular Volume 89.1 fL (83.0-100.0); Mean Platelet Volume 10.7 fL (9.4-12.4); Monocytes # 1.2 K/mcL (0.0-1.3); Monocytes % 6.7 %; Neutrophils # 15.1 K/mcL (1.6-8.9); Platelet Count 231 K/mcL (140-400); Red Blood Count 4.67 M/mcL (4.19-5.50); Red Cell Distribution Width 14.6 % (11.5-14.5); Segmented Neutrophils % 86.1 %; White Blood Count 17.5 K/mcL (4.3-11.1)
[2021-02-16 20:26] LABS: INR 3.5; Prothrombin Time 38.9 Seconds (9.4-12.1)
[2021-02-16 20:29] LABS: Activated Partial Thrombo Time 39.8 Seconds (26.0-36.0)
[2021-02-16 21:01] LABS: Albumin 3.8 g/dL (3.5-5.7); Albumin/Globulin Ratio 1.1 (1.1-2.2); Bilirubin,Direct 0.2 mg/dL (0.0-0.2); Bilirubin,Indirect 0.3 mg/dL (0.0-1.0); Bilirubin,Total 0.5 mg/dL (0.3-1.0); Calcium 7.2 mg/dL (8.6-10.3); Globulin 3.6 g/dL (2.4-3.5); Potassium 4.2 mEq/L (3.5-5.1); Total Protein 7.4 g/dL (6.4-8.9); Troponin I 0.03 ng/mL (< 0.04)
[2021-02-16 21:07] LABS: Bilirubin,Urine Negative (Negative); Blood,Urine Small (Negative); Clarity,Urine Clear (Clear); Color,Urine Yellow (Yellow); Glucose,Urine (UA) 70 mg/dL (Normal); Hyaline Casts,Urine Few per lpf (None Seen); Ketones,Urine Negative (Negative); Leukocyte Esterase,Urine Negative (Negative); Mucus,Urine Few per lpf (None-Few); Nitrite,Urine Negative (Negative); PH,Urine 5.5 pH Units (5.0-8.0); Protein,Urine 100 mg/dL (Neg-Trace); RBC,Urine 0-3 per hpf (0-3); Specific Gravity,Urine 1.021 (1.010-1.025); Urobilinogen,Urine Normal (Normal)
[2021-02-16] MEDS ORDERED: Naloxone 0.4 MG/ML INJ IVP PRN (23:10)
[2021-02-16] MEDS ORDERED: Acetaminophen 325 MG TABLET PO PRN (23:10)
[2021-02-16] MEDS ORDERED: *HR* HYDROcodone/Acet 5/325 mg TABLET PO PRN (23:10)
[2021-02-16] MEDS ORDERED: Ondansetron 4 MG/2 ML VIAL IVP PRN (23:10)
[2021-02-17] MEDS ORDERED: *HR* Dextrose 50 % in Water (Vial) 50 ML VIAL IVP PRN ×2 (00:27→00:31)
[2021-02-17] MEDS ORDERED: Insulin Regular, Human 100 UNIT/ML IV ONE (00:27)
[2021-02-17] MEDS ORDERED: Pantoprazole 40 MG VIAL IVP SCH (00:30)
[2021-02-17] MEDS ORDERED: D5% in Water 1,000 ML IVC PRN (00:31)
[2021-02-17] MEDS ORDERED: Dextrose Gel 15 GM/37.5 ML TUBE PO PRN (00:31)
[2021-02-17] MEDS ORDERED: Ringers Solution, Lactated 1,000 ML IVC SCH (00:45)
[2021-02-17] MEDS ORDERED: Insulin DETEMIR 100 UNIT/ML X5UNITS SUBQ ONE (01:00)
[2021-02-17 01:25] LABS: VBG HCO3 21 mEq/L (21-27); VBG PCO2 36 mmHg (41-51); VBG PH 7.37 pH Units (7.32-7.42); VBG PO2 213 mmHg (25-50)
[2021-02-17] MEDS: 0.9 % Sodium Chloride 1,000 ML IVC ONE ×2 (01:27→03:00)
[2021-02-17] MEDS: Ringers Solution, Lactated 1,000 ML IVC SCH ×5 (02:59→21:50)
[2021-02-17 04:48] LABS: INR 3.9
[2021-02-17 04:51] LABS: Activated Partial Thrombo Time 38.7 Seconds (26.0-36.0)
[2021-02-17] MEDS: Calcium Gluconate 1gm/50mL 1 GM/50 ML BAG IVPB SCH ×2 (04:57→11:18)
[2021-02-17] MEDS: Doxycycline 100 MG CAPSULE PO SCH ×2 (04:58→20:13)
[2021-02-17] MEDS: levoFLOXacin 750 MG TABLET PO SCH (04:58)
[2021-02-17 05:00] LABS: Magnesium 0.8 mg/dL (1.6-2.6); Phosphorous 4.2 mg/dL (2.7-4.5)
[2021-02-17 05:02] LABS: Calcium 6.4 mg/dL (8.6-10.3); Potassium 3.8 mEq/L (3.5-5.1)
[2021-02-17] MEDS: Insulin LISPRO 300 UNITS/3 ML VIAL SUBQ SCH ×4 (05:07→17:59)
[2021-02-17] MEDS: *HR* Heparin 5,000 UNIT/ML VIAL SQ SCH ×2 (05:08→13:42)
[2021-02-17 05:50] LABS: Procalcitonin 0.66 ng/mL (0.00-0.15)
[2021-02-17 05:56] LABS: Basophils # 0.1 K/mcL (0.0-0.2); Basophils % 0.5 %; Eosinophils # 0.1 K/mcL (0.0-0.6); Eosinophils % 0.4 %; Hematocrit 37.9 % (37.5-50.1); Hemoglobin 12.2 g/dL (12.9-16.9); Immature Granulocytes % 0.3 % (0-4); Lymphocytes # 1.2 K/mcL (0.6-4.6); Lymphocytes % 8.1 %; Mean Corpuscular HGB Conc 32.2 g/dL (31.6-35.5); Mean Corpuscular Hemoglobin 29.5 pg (28.0-33.3); Mean Corpuscular Volume 91.5 fL (83.0-100.0); Mean Platelet Volume 11.1 fL (9.4-12.4); Monocytes % 6.7 %; Neutrophils # 12.6 K/mcL (1.6-8.9); Platelet Count 233 K/mcL (140-400); Red Blood Count 4.14 M/mcL (4.19-5.50); Red Cell Distribution Width 14.8 % (11.5-14.5)
[2021-02-17] MEDS: *HR* HYDROcodone/Acet 10/325 mg TABLET PO PRN ×3 (06:06→18:36)
[2021-02-17] MEDS ORDERED: Sodium Bicarbonate 50 MEQ in 0.45 % Sodium Chloride 1,000 ML IVC SCH (10:15)
[2021-02-17] MEDS: 0.9 % Sodium Chloride 1,000 ML IVC SCH (11:16)
[2021-02-17 13:51] LABS: Adenovirus Not Detected (Not Detect); Bordetella Pertussis Not Detected (Not Detect); Chlamydophila pneumoniae Not Detected (Not Detect); Coronavirus 229E Not Detected (Not Detect); Coronavirus HKU1 Not Detected (Not Detect); Coronavirus NL63 Not Detected (Not Detect); Coronavirus OC43 Not Detected (Not Detect); Human Metapneumovirus Not Detected (Not Detect); Human Rhinovirus/Enterovirus Not Detected (Not Detect); Influenza A Subtype 2009 H1 Not Detected (Not Detect); Influenza B Not Detected (Not Detect); Mycoplasma pneumoniae Not Detected (Not Detect); Parainfluenza Virus 1 Not Detected (Not Detect); Parainfluenza Virus 2 Not Detected (Not Detect); Parainfluenza Virus 3 Not Detected (Not Detect); Parainfluenza Virus 4 Not Detected (Not Detect); Respiratory Syncytial Virus Not Detected (Not Detect); SARS-CoV-2 Not Detected (Not Detect)
[2021-02-17] MEDS: Pantoprazole 40 MG VIAL IVP SCH (20:14)
[2021-02-18] MEDS: Insulin LISPRO 300 UNITS/3 ML VIAL SUBQ SCH ×5 (00:11→23:00)
[2021-02-18] MEDS: *HR* HYDROcodone/Acet 10/325 mg TABLET PO PRN ×4 (00:41→18:18)
[2021-02-18 05:42] LABS: Basophils % 0.5 %; Eosinophils # 0.5 K/mcL (0.0-0.6); Eosinophils % 5.2 %; Hematocrit 36.4 % (37.5-50.1); Hemoglobin 11.6 g/dL (12.9-16.9); Immature Granulocytes % 0.3 % (0-4); Lymphocytes # 1.1 K/mcL (0.6-4.6); Mean Corpuscular HGB Conc 31.9 g/dL (31.6-35.5); Mean Corpuscular Hemoglobin 28.9 pg (28.0-33.3); Mean Corpuscular Volume 90.8 fL (83.0-100.0); Mean Platelet Volume 10.6 fL (9.4-12.4); Monocytes # 0.7 K/mcL (0.0-1.3); Monocytes % 7.3 %; Neutrophils # 6.6 K/mcL (1.6-8.9); Platelet Count 191 K/mcL (140-400); Red Blood Count 4.01 M/mcL (4.19-5.50); Red Cell Distribution Width 14.6 % (11.5-14.5); Segmented Neutrophils % 74.7 %; White Blood Count 8.9 K/mcL (4.3-11.1)
[2021-02-18] MEDS: Ringers Solution, Lactated 1,000 ML IVC SCH (05:44)
[2021-02-18 06:10] LABS: BUN/Creatinine Ratio 40 (6-26); Blood Urea Nitrogen 43 mg/dL (8-23); Calcium 7.3 mg/dL (8.6-10.3); Carbon Dioxide 23 mEq/L (23-29); Chloride 104 mEq/L (98-107); Creatine Kinase 788 Units/L (30-223); Glucose 200 mg/dL (70-105); Magnesium 1.2 mg/dL (1.6-2.6); Osmolality,Calculated 294 (280-300); Phosphorous 1.9 mg/dL (2.7-4.5); Potassium 4.2 mEq/L (3.5-5.1); Sodium 134 mEq/L (136-145); eGFR For African Americans > 60 (> 60); eGFR For Non-African Americans > 60 (> 60)
[2021-02-18] MEDS: Pantoprazole 40 MG VIAL IVP SCH ×2 (08:06→20:43)
[2021-02-18] MEDS: Doxycycline 100 MG CAPSULE PO SCH ×2 (08:06→20:43)
[2021-02-18] MEDS: levoFLOXacin 750 MG TABLET PO SCH (08:06)
[2021-02-18] MEDS ORDERED: 0.9 % Sodium Chloride 1,000 ML ONE (08:11)
[2021-02-18] MEDS: 0.9 % Sodium Chloride 1,000 ML IVC SCH (16:00)
[2021-02-18] MEDS: amLODIPine 5 MG TABLET PO SCH (16:01)
[2021-02-18] MEDS: Calcium Gluconate 1gm/50mL 1 GM/50 ML BAG IVPB SCH (18:47)
[2021-02-18] MEDS: Mirtazapine 15 MG TABLET PO SCH (20:43)
[2021-02-18] MEDS: Baclofen 10 MG TABLET PO PRN (22:56)
[2021-02-19] MEDS: *HR* HYDROcodone/Acet 10/325 mg TABLET PO PRN ×3 (00:21→13:56)
[2021-02-19 04:47] LABS: Basophils % 0.4 %; Eosinophils # 0.4 K/mcL (0.0-0.6); Eosinophils % 5.9 %; Hematocrit 37.5 % (37.5-50.1); Immature Granulocytes % 0.3 % (0-4); Lymphocytes # 0.9 K/mcL (0.6-4.6); Lymphocytes % 13.3 %; Mean Corpuscular Hemoglobin 29.1 pg (28.0-33.3); Mean Platelet Volume 10.3 fL (9.4-12.4); Monocytes # 0.6 K/mcL (0.0-1.3); Monocytes % 8.4 %; Platelet Count 203 K/mcL (140-400); Red Blood Count 4.12 M/mcL (4.19-5.50); Red Cell Distribution Width 14.5 % (11.5-14.5); Segmented Neutrophils % 71.7 %; White Blood Count 6.9 K/mcL (4.3-11.1)
[2021-02-19 05:06] LABS: INR 4.2
[2021-02-19 05:07] LABS: BUN/Creatinine Ratio 22 (6-26); Blood Urea Nitrogen 20 mg/dL (8-23); Calcium 8.3 mg/dL (8.6-10.3); Carbon Dioxide 27 mEq/L (23-29); Chloride 104 mEq/L (98-107); Creatine Kinase 505 Units/L (30-223); Glucose 205 mg/dL (70-105); Magnesium 1.6 mg/dL (1.6-2.6); Osmolality,Calculated 295 (280-300); Sodium 138 mEq/L (136-145); eGFR For African Americans > 60 (> 60); eGFR For Non-African Americans > 60 (> 60)
[2021-02-19 05:12] LABS: Prothrombin Time 47.1 Seconds (9.4-12.1)
[2021-02-19] MEDS: 0.9 % Sodium Chloride 1,000 ML IVC SCH (05:35)
[2021-02-19] MEDS: Insulin LISPRO 300 UNITS/3 ML VIAL SUBQ SCH ×5 (05:36→20:47)
[2021-02-19 05:44] LABS: Alanine Aminotransferase 23 Units/L (7-52); Albumin 3.2 g/dL (3.5-5.7); Albumin/Globulin Ratio 0.9 (1.1-2.2); Alkaline Phosphatase 74 Units/L (34-104); Aspartate Amino Transferase 23 Units/L (13-39); Bilirubin,Indirect 0.4 mg/dL (0.0-1.0); Bilirubin,Total 0.4 mg/dL (0.3-1.0); Globulin 3.5 g/dL (2.4-3.5); Total Protein 6.7 g/dL (6.4-8.9)
[2021-02-19] MEDS: levoFLOXacin 750 MG TABLET PO SCH (07:42)
[2021-02-19] MEDS: Pantoprazole 40 MG VIAL IVP SCH (07:42)
[2021-02-19] MEDS: Doxycycline 100 MG CAPSULE PO SCH ×2 (07:42→20:46)
[2021-02-19] MEDS: amLODIPine 5 MG TABLET PO SCH (07:44)
[2021-02-19] MEDS: PARoxetine 20 MG TABLET PO SCH (07:44)
[2021-02-19] MEDS: Cyanocobalamin (B-12) 1,000 MCG TABLET PO SCH (07:45)
[2021-02-19] MEDS ORDERED: *HR* Propofol 200 MG/20 ML VIAL IVP ONE (09:20)
[2021-02-19] MEDS ORDERED: Lidocaine -MPF 2% 5 ML VIAL SQ ONE (09:20)
[2021-02-19] MEDS: Fluconazole 100 MG TABLET PO SCH ×2 (17:20→17:22)
[2021-02-19] MEDS ORDERED: *HR* Metoprolol 5 MG/5 ML VIAL IVP PRN (18:37)
[2021-02-19] MEDS: Mirtazapine 15 MG TABLET PO SCH (20:46)
[2021-02-20] MEDS: levoFLOXacin 750 MG TABLET PO SCH (07:57)
[2021-02-20] MEDS: Fluconazole 100 MG TABLET PO SCH (07:58)
[2021-02-20] MEDS: PARoxetine 20 MG TABLET PO SCH (07:58)
[2021-02-20] MEDS: Doxycycline 100 MG CAPSULE PO SCH (07:58)
[2021-02-20] MEDS: amLODIPine 5 MG TABLET PO SCH (07:58)
[2021-02-20] MEDS: Cyanocobalamin (B-12) 1,000 MCG TABLET PO SCH (07:58)
[2021-02-20] MEDS: Insulin LISPRO 300 UNITS/3 ML VIAL SUBQ SCH ×4 (07:59→21:00)
[2021-02-20 09:33] LABS: Basophils % 0.5 %; Eosinophils # 0.2 K/mcL (0.0-0.6); Eosinophils % 3.8 %; Hematocrit 39.9 % (37.5-50.1); Immature Granulocytes % 0.3 % (0-4); Lymphocytes # 0.7 K/mcL (0.6-4.6); Lymphocytes % 10.8 %; Mean Corpuscular HGB Conc 32.6 g/dL (31.6-35.5); Mean Corpuscular Hemoglobin 28.9 pg (28.0-33.3); Mean Corpuscular Volume 88.7 fL (83.0-100.0); Mean Platelet Volume 9.8 fL (9.4-12.4); Monocytes # 0.5 K/mcL (0.0-1.3); Monocytes % 7.7 %; Neutrophils # 4.9 K/mcL (1.6-8.9); Platelet Count 235 K/mcL (140-400); Segmented Neutrophils % 76.9 %; White Blood Count 6.4 K/mcL (4.3-11.1)
[2021-02-20 09:47] LABS: INR 1.9; Prothrombin Time 22.1 Seconds (9.4-12.1)
[2021-02-20 09:51] LABS: BUN/Creatinine Ratio 18 (6-26); Blood Urea Nitrogen 15 mg/dL (8-23); Calcium 9.2 mg/dL (8.6-10.3); Carbon Dioxide 22 mEq/L (23-29); Chloride 99 mEq/L (98-107); Creatine Kinase 286 Units/L (30-223); Glucose 246 mg/dL (70-105); Osmolality,Calculated 287 (280-300); Phosphorous 1.6 mg/dL (2.7-4.5); Potassium 4.7 mEq/L (3.5-5.1); Sodium 134 mEq/L (136-145); eGFR For African Americans > 60 (> 60); eGFR For Non-African Americans > 60 (> 60)
[2021-02-20] MEDS: Acetaminophen 325 MG TABLET PO PRN ×2 (12:24→20:08)
[2021-02-20] MEDS: Gabapentin 400 MG CAPSULE PO SCH ×3 (12:47→20:08)
[2021-02-20] MEDS: QUEtiapine Fumarate 25 MG TABLET PO SCH ×2 (13:20→20:08)
[2021-02-20 17:14] LABS: Albumin 3.7 g/dL (3.5-5.7); Albumin/Globulin Ratio 1.1 (1.1-2.2); Bilirubin,Direct 0.1 mg/dL (0.0-0.2); Bilirubin,Indirect 0.5 mg/dL (0.0-1.0); Bilirubin,Total 0.6 mg/dL (0.3-1.0); Globulin 3.3 g/dL (2.4-3.5)
[2021-02-20] MEDS: Mirtazapine 15 MG TABLET PO SCH (20:08)
[2021-02-20] MEDS ORDERED: Insulin DETEMIR 100 UNIT/ML X5UNITS SUBQ SCH (21:00)
[2021-02-21] MEDS: Baclofen 10 MG TABLET PO PRN (00:46)
[2021-02-21] MEDS: Acetaminophen 325 MG TABLET PO PRN ×2 (02:37→21:55)
[2021-02-21] MEDS: QUEtiapine Fumarate 25 MG TABLET PO SCH ×2 (08:32→21:56)
[2021-02-21] MEDS: PARoxetine 20 MG TABLET PO SCH (08:32)
[2021-02-21] MEDS: Gabapentin 400 MG CAPSULE PO SCH ×4 (08:32→21:56)
[2021-02-21] MEDS: Cyanocobalamin (B-12) 1,000 MCG TABLET PO SCH (08:32)
[2021-02-21] MEDS: amLODIPine 5 MG TABLET PO SCH (08:33)
[2021-02-21] MEDS: Insulin LISPRO 300 UNITS/3 ML VIAL SUBQ SCH ×4 (08:34→21:57)
[2021-02-21 17:22] LABS: Hepatitis B Surface Antigen Nonreactive (Nonreactive)
[2021-02-21 17:51] LABS: Hepatitis C Virus Antibody Nonreactive (Nonreactive)
[2021-02-21 17:53] LABS: Hepatitis B Core IgM Nonreactive (Nonreactive)
[2021-02-21 17:56] LABS: Hepatitis A Antibody IgM Nonreactive (Nonreactive)
[2021-02-21] MEDS ORDERED: Insulin DETEMIR 100 UNIT/ML X5UNITS SUBQ SCH (21:00)
[2021-02-21] MEDS: Mirtazapine 15 MG TABLET PO SCH (21:56)
[2021-02-22] MEDS: Insulin LISPRO 300 UNITS/3 ML VIAL SUBQ SCH ×4 (08:47→21:14)
[2021-02-22] MEDS: Fluconazole 100 MG TABLET PO SCH (08:52)
[2021-02-22] MEDS: Gabapentin 400 MG CAPSULE PO SCH ×4 (08:52→21:18)
[2021-02-22] MEDS: amLODIPine 5 MG TABLET PO SCH (08:53)
[2021-02-22] MEDS: Cyanocobalamin (B-12) 1,000 MCG TABLET PO SCH (08:53)
[2021-02-22] MEDS: QUEtiapine Fumarate 25 MG TABLET PO SCH ×2 (08:53→21:16)
[2021-02-22] MEDS: PARoxetine 20 MG TABLET PO SCH (08:53)
[2021-02-22 16:20] LABS: Influenza A PCR Negative (Negative); Influenza B PCR Negative (Negative); Resp. Syncytial Virus PCR Negative (Negative); SARS-CoV-2 by PCR (In House) Negative (Negative)
[2021-02-22] MEDS: Insulin DETEMIR 100 UNIT/ML X5UNITS SUBQ SCH (21:15)
[2021-02-22] MEDS: Mirtazapine 15 MG TABLET PO SCH (21:16)
[2021-02-23] MEDS: Fluconazole 100 MG TABLET PO SCH (09:20)
[2021-02-23] MEDS: amLODIPine 5 MG TABLET PO SCH (09:20)
[2021-02-23] MEDS: PARoxetine 20 MG TABLET PO SCH (09:20)
[2021-02-23] MEDS: Gabapentin 400 MG CAPSULE PO SCH ×4 (09:20→21:41)
[2021-02-23] MEDS: Cyanocobalamin (B-12) 1,000 MCG TABLET PO SCH (09:20)
[2021-02-23] MEDS: QUEtiapine Fumarate 25 MG TABLET PO SCH ×2 (09:20→21:42)
[2021-02-23] MEDS: Insulin LISPRO 300 UNITS/3 ML VIAL SUBQ SCH ×4 (09:21→21:40)
[2021-02-23 11:37] LABS: AFP Tumor Marker Non-Pregnant 2 ng/mL (0-9)
[2021-02-23 11:38] LABS: ANA IgG by ELISA DETECTED (None Detected); F-Actin (sm muscle) Ab IgG 11 Units (0-19)
[2021-02-23] MEDS: Acetaminophen 325 MG TABLET PO PRN (14:48)
[2021-02-23 19:09] VITALS: O2SAT 95
[2021-02-23] MEDS ORDERED: Insulin DETEMIR 100 UNIT/ML X5UNITS SUBQ SCH (21:00)
[2021-02-23] MEDS: Mirtazapine 15 MG TABLET PO SCH (21:42)
[2021-02-23] MEDS: Insulin DETEMIR 100 UNIT/ML X5UNITS SUBQ SCH (22:17)
[2021-02-23 22:27] VITALS: BP 138/68; PULSE 100; TEMP 98.3
[2021-02-24 02:31] LABS: ANA HEp-2 IgG IFA DETECTED (<1:80); Anti Nuclear Ab Pattern SPECKLED
== END 2021-02-23 22:30 | disposition other institution (70) | DRG 564 ==
LOC: 3ANU 18:59 → EMEROOARM 18:59 → SUATTDRO 02-17 02:51 → 3ANU 02-17 03:46 → SUATTDRO 02-17 18:24
PROVIDERS: ADMIT Internal Medicine; ATTEND Hospitalist
PROC: ENDOEBX (2021-02-19 15:00)

== ENCOUNTER 2021-03-14 13:17 | Inpatient (IN) ==
[2021-03-14] MEDS ORDERED: 0.9 % Sodium Chloride 1,000 ML IV ONE (13:43)
[2021-03-14] MEDS ORDERED: *HR* Dextrose 50 % in Water (Syg) 50 ML SYRINGE IVP ONE ×2 (13:43→18:20)
[2021-03-14 14:07] LABS: Basophils % 0.2 %; Eosinophils # 0.1 K/mcL (0.0-0.6); Hematocrit 39.7 % (37.5-50.1); Hemoglobin 12.3 g/dL (12.9-16.9); Immature Granulocytes % 0.5 % (0-4); Lymphocytes # 1.1 K/mcL (0.6-4.6); Lymphocytes % 9.2 %; Mean Corpuscular Hemoglobin 29.2 pg (28.0-33.3); Mean Corpuscular Volume 94.3 fL (83.0-100.0); Mean Platelet Volume 9.6 fL (9.4-12.4); Monocytes # 0.4 K/mcL (0.0-1.3); Monocytes % 3.7 %; Neutrophils # 9.8 K/mcL (1.6-8.9); Platelet Count 267 K/mcL (140-400); Red Blood Count 4.21 M/mcL (4.19-5.50); Red Cell Distribution Width 14.6 % (11.5-14.5); Segmented Neutrophils % 85.4 %; White Blood Count 11.4 K/mcL (4.3-11.1)
[2021-03-14 14:34] LABS: Alanine Aminotransferase 14 Units/L (7-52); Albumin 3.9 g/dL (3.5-5.7); Albumin/Globulin Ratio 1.3 (1.1-2.2); Alkaline Phosphatase 106 Units/L (34-104); Aspartate Amino Transferase 14 Units/L (13-39); BUN/Creatinine Ratio 19 (6-26); Bilirubin,Total 0.4 mg/dL (0.3-1.0); Blood Urea Nitrogen 52 mg/dL (8-23); Calcium 8.1 mg/dL (8.6-10.3); Carbon Dioxide 24 mEq/L (23-29); Chloride 105 mEq/L (98-107); Globulin 3.1 g/dL (2.4-3.5); Glucose 63 mg/dL (70-105); Magnesium 1.2 mg/dL (1.6-2.6); Osmolality,Calculated 296 (280-300); Potassium 5.8 mEq/L (3.5-5.1); Sodium 137 mEq/L (136-145); Troponin I < 0.03 ng/mL (< 0.04); eGFR For African Americans 30 (> 60); eGFR For Non-African Americans 24 (> 60)
[2021-03-14] MEDS ORDERED: Orphenadrine 60 MG/2 ML VIAL IVP ONE (15:46)
[2021-03-14 16:16] LABS: Bacteria,Urine Few per hpf (None-Few); Bilirubin,Urine Negative (Negative); Blood,Urine Negative (Negative); Clarity,Urine Clear (Clear); Color,Urine Yellow (Yellow); Glucose,Urine (UA) Normal (Normal); Hyaline Casts,Urine Few per lpf (None Seen); Ketones,Urine Negative (Negative); Leukocyte Esterase,Urine Negative (Negative); Mucus,Urine Few per lpf (None-Few); Nitrite,Urine Negative (Negative); Protein,Urine 30 mg/dL (Neg-Trace); RBC,Urine 15-30 per hpf (0-3); Specific Gravity,Urine 1.024 (1.010-1.025); Squamous Epithelial Cell,Urine Few per hpf (None-Few); Urobilinogen,Urine Normal (Normal)
[2021-03-14] MEDS ORDERED: Naloxone 0.4 MG/ML INJ IVP PRN (17:03)
[2021-03-14] MEDS ORDERED: *HR* Dextrose 50 % in Water (Syg) 50 ML SYRINGE IVP PRN (17:05)
[2021-03-14] MEDS ORDERED: Dextrose Gel 15 GM/37.5 ML TUBE PO PRN ×2 (17:05)
[2021-03-14] MEDS ORDERED: D5% in Water 1,000 ML IVC PRN (17:05)
[2021-03-14] MEDS ORDERED: D5% in 0.9% NACL 1,000 ML IVC SCH (17:15)
[2021-03-14 17:36] LABS: Albumin 3.6 g/dL (3.5-5.7); Albumin/Globulin Ratio 1.2 (1.1-2.2); Bilirubin,Total 0.4 mg/dL (0.3-1.0); Calcium 7.8 mg/dL (8.6-10.3); Globulin 3.1 g/dL (2.4-3.5); Potassium 6.6 mEq/L (3.5-5.1); Total Protein 6.7 g/dL (6.4-8.9)
[2021-03-14] MEDS ORDERED: Insulin Human Regular 5 UNIT in 0.9 % Sodium Chloride 10 ML IV ONE (18:20)
[2021-03-14] MEDS ORDERED: Calcium Gluconate 1,000 MG/10 ML VIAL IVP ONE (18:22)
[2021-03-14] MEDS ORDERED: Calcium Gluconate 1gm/50mL BAG IVPB ONE (18:30)
[2021-03-14 19:20] LABS: Estimated Average Glucose 189 mg/dl; Hemoglobin A1C 8.2 %
[2021-03-14] MEDS: Sodium Bicarbonate 150 MEQ in Water for inj. (sterile) 1,000 ML IVC SCH (19:57)
[2021-03-14] MEDS: SODIUM ZIRCONIUM CYCLOSILICATE 5 GM POWD.PACK PO SCH (20:04)
[2021-03-14] MEDS: *HR* OxyCODONE Immed Rel 5 MG TABLET PO PRN (20:05)
[2021-03-14] MEDS: *HR* Heparin 5,000 UNIT/ML VIAL SQ SCH (20:10)
[2021-03-14 23:03] LABS: Potassium 5.3 mEq/L (3.5-5.1); Troponin I < 0.03 ng/mL (< 0.04)
[2021-03-15] MEDS: SODIUM ZIRCONIUM CYCLOSILICATE 5 GM POWD.PACK PO SCH ×2 (02:27→08:53)
[2021-03-15] MEDS: *HR* OxyCODONE Immed Rel 5 MG TABLET PO PRN ×3 (03:06→22:02)
[2021-03-15] MEDS: Acetaminophen 325 MG TABLET PO PRN ×2 (03:50→17:43)
[2021-03-15] MEDS: *HR* Heparin 5,000 UNIT/ML VIAL SQ SCH ×2 (05:50→17:43)
[2021-03-15 05:52] LABS: Calcium 7.5 mg/dL (8.6-10.3); Magnesium 1.1 mg/dL (1.6-2.6); Potassium 5.4 mEq/L (3.5-5.1)
[2021-03-15 06:00] LABS: Basophils % 0.3 %; Eosinophils # 0.3 K/mcL (0.0-0.6); Eosinophils % 3.3 %; Hematocrit 33.4 % (37.5-50.1); Immature Granulocytes % 0.2 % (0-4); Lymphocytes # 1.5 K/mcL (0.6-4.6); Lymphocytes % 17.4 %; Mean Corpuscular HGB Conc 31.7 g/dL (31.6-35.5); Mean Corpuscular Volume 91.3 fL (83.0-100.0); Mean Platelet Volume 10.1 fL (9.4-12.4); Monocytes # 0.7 K/mcL (0.0-1.3); Monocytes % 7.6 %; Neutrophils # 6.2 K/mcL (1.6-8.9); Platelet Count 245 K/mcL (140-400); Red Blood Count 3.66 M/mcL (4.19-5.50); Red Cell Distribution Width 14.6 % (11.5-14.5); Segmented Neutrophils % 71.2 %; White Blood Count 8.7 K/mcL (4.3-11.1)
[2021-03-15 06:06] LABS: Hemoglobin 10.6 g/dL (12.9-16.9)
[2021-03-15] MEDS ORDERED: Calcium Gluconate 1gm/50mL 1 GM/50 ML BAG IVPB ONE (06:14)
[2021-03-15] MEDS: Sodium Bicarbonate 150 MEQ in Water for inj. (sterile) 1,000 ML IVC SCH (06:48)
[2021-03-15] MEDS ORDERED: Nitrofurantoin (BID) 100 MG CAPSULE PO SCH (08:00)
[2021-03-15] MEDS: *HR* HYDROcodone/Acet 5/325 mg TABLET PO PRN (08:54)
[2021-03-15] MEDS ORDERED: levoFLOXacin 750 MG/150 ML 750 MG/150 ML BAG IVPB SCH (10:00)
[2021-03-15] MEDS ORDERED: Vancomycin 2,000 MG/520 ML IV.SOLN IVPB ONE (11:00)
[2021-03-15 11:46] LABS: Adenovirus Not Detected (Not Detect); Bordetella Pertussis Not Detected (Not Detect); Chlamydophila pneumoniae Not Detected (Not Detect); Coronavirus 229E Not Detected (Not Detect); Coronavirus HKU1 Not Detected (Not Detect); Coronavirus NL63 Not Detected (Not Detect); Coronavirus OC43 Not Detected (Not Detect); Human Metapneumovirus Not Detected (Not Detect); Human Rhinovirus/Enterovirus Not Detected (Not Detect); Influenza A Subtype 2009 H1 Not Detected (Not Detect); Influenza B Not Detected (Not Detect); Mycoplasma pneumoniae Not Detected (Not Detect); Parainfluenza Virus 1 Not Detected (Not Detect); Parainfluenza Virus 2 Not Detected (Not Detect); Parainfluenza Virus 3 Not Detected (Not Detect); Parainfluenza Virus 4 Not Detected (Not Detect); Respiratory Syncytial Virus Not Detected (Not Detect); SARS-CoV-2 Not Detected (Not Detect)
[2021-03-16] MEDS: *HR* Heparin 5,000 UNIT/ML VIAL SQ SCH ×2 (05:11→17:42)
[2021-03-16] MEDS: *HR* OxyCODONE Immed Rel 5 MG TABLET PO PRN (05:19)
[2021-03-16] MEDS ORDERED: Baclofen 10 MG TABLET PO PRN (07:51)
[2021-03-16] MEDS: Gabapentin 100 MG CAPSULE PO SCH ×3 (08:22→20:15)
[2021-03-16] MEDS: QUEtiapine Fumarate 25 MG TABLET PO SCH ×2 (08:25→20:15)
[2021-03-16] MEDS: Cyanocobalamin (B-12) 1,000 MCG TABLET PO SCH (08:25)
[2021-03-16] MEDS: Aspirin Enteric Coated 81 MG Tablet PO SCH (08:26)
[2021-03-16] MEDS: PARoxetine 20 MG TABLET PO SCH (08:26)
[2021-03-16 08:31] LABS: Hematocrit 32.4 % (37.5-50.1); Hemoglobin 10.6 g/dL (12.9-16.9); Mean Corpuscular HGB Conc 32.7 g/dL (31.6-35.5); Mean Corpuscular Volume 91.8 fL (83.0-100.0); Mean Platelet Volume 9.7 fL (9.4-12.4); Platelet Count 213 K/mcL (140-400); Red Blood Count 3.53 M/mcL (4.19-5.50); Red Cell Distribution Width 14.6 % (11.5-14.5); White Blood Count 6.1 K/mcL (4.3-11.1)
[2021-03-16 08:47] LABS: Calcium 8.1 mg/dL (8.6-10.3); Magnesium 1.8 mg/dL (1.6-2.6); Potassium 5.2 mEq/L (3.5-5.1)
[2021-03-16] MEDS ORDERED: *HR* SitaGLIPtin 25 MG TABLET PO SCH (09:00)
[2021-03-16] MEDS: *HR* HYDROcodone/Acet 5/325 mg TABLET PO PRN ×2 (12:03→18:09)
[2021-03-16] MEDS ORDERED: levoFLOXacin 750 MG/150 ML 750 MG/150 ML BAG IVPB SCH (15:00)
[2021-03-16] MEDS: Mirtazapine 15 MG TABLET PO SCH (20:15)
[2021-03-17] MEDS: *HR* OxyCODONE Immed Rel 5 MG TABLET PO PRN ×3 (04:44→17:02)
[2021-03-17] MEDS: *HR* Heparin 5,000 UNIT/ML VIAL SQ SCH ×2 (04:47→17:02)
[2021-03-17 07:37] LABS: Magnesium 1.7 mg/dL (1.6-2.6); Phosphorous 3.6 mg/dL (2.7-4.5)
[2021-03-17 07:38] LABS: BUN/Creatinine Ratio 26 (6-26); Blood Urea Nitrogen 34 mg/dL (8-23); Carbon Dioxide 29 mEq/L (23-29); Chloride 104 mEq/L (98-107); Glucose 209 mg/dL (70-105); Hematocrit 35.7 % (37.5-50.1); Hemoglobin 11.1 g/dL (12.9-16.9); Mean Corpuscular HGB Conc 31.1 g/dL (31.6-35.5); Mean Corpuscular Volume 93.2 fL (83.0-100.0); Mean Platelet Volume 9.9 fL (9.4-12.4); Osmolality,Calculated 300 (280-300); Platelet Count 198 K/mcL (140-400); Potassium 4.9 mEq/L (3.5-5.1); Red Blood Count 3.83 M/mcL (4.19-5.50); Red Cell Distribution Width 14.2 % (11.5-14.5); Sodium 138 mEq/L (136-145); White Blood Count 4.6 K/mcL (4.3-11.1); eGFR For African Americans > 60 (> 60); eGFR For Non-African Americans 57 (> 60)
[2021-03-17] MEDS: Gabapentin 100 MG CAPSULE PO SCH ×3 (08:12→20:56)
[2021-03-17] MEDS: *HR* SitaGLIPtin 25 MG TABLET PO SCH (08:13)
[2021-03-17] MEDS: PARoxetine 20 MG TABLET PO SCH (08:13)
[2021-03-17] MEDS: QUEtiapine Fumarate 25 MG TABLET PO SCH ×2 (08:13→20:57)
[2021-03-17] MEDS: Aspirin Enteric Coated 81 MG Tablet PO SCH (08:13)
[2021-03-17] MEDS: Cyanocobalamin (B-12) 1,000 MCG TABLET PO SCH (08:13)
[2021-03-17] MEDS: *HR* Metformin 500 MG TABLET PO SCH ×2 (08:41→20:57)
[2021-03-17] MEDS: Acetaminophen 325 MG TABLET PO PRN (13:40)
[2021-03-17] MEDS: Mirtazapine 15 MG TABLET PO SCH (20:57)
[2021-03-18] MEDS: *HR* OxyCODONE Immed Rel 5 MG TABLET PO PRN ×4 (03:37→23:29)
[2021-03-18 04:58] LABS: Hematocrit 33.8 % (37.5-50.1); Hemoglobin 10.7 g/dL (12.9-16.9); Mean Corpuscular HGB Conc 31.7 g/dL (31.6-35.5); Mean Corpuscular Hemoglobin 29.4 pg (28.0-33.3); Mean Corpuscular Volume 92.9 fL (83.0-100.0); Mean Platelet Volume 9.5 fL (9.4-12.4); Platelet Count 185 K/mcL (140-400); Red Blood Count 3.64 M/mcL (4.19-5.50); Red Cell Distribution Width 13.8 % (11.5-14.5); White Blood Count 5.3 K/mcL (4.3-11.1)
[2021-03-18 05:18] LABS: BUN/Creatinine Ratio 26 (6-26); Blood Urea Nitrogen 33 mg/dL (8-23); Calcium 8.6 mg/dL (8.6-10.3); Carbon Dioxide 26 mEq/L (23-29); Chloride 102 mEq/L (98-107); Glucose 189 mg/dL (70-105); Osmolality,Calculated 292 (280-300); Sodium 135 mEq/L (136-145); eGFR For African Americans > 60 (> 60); eGFR For Non-African Americans 57 (> 60)
[2021-03-18] MEDS: *HR* Heparin 5,000 UNIT/ML VIAL SQ SCH ×2 (06:19→16:39)
[2021-03-18] MEDS: *HR* Metformin 500 MG TABLET PO SCH ×2 (08:33→21:55)
[2021-03-18] MEDS: Gabapentin 100 MG CAPSULE PO SCH ×3 (08:33→21:54)
[2021-03-18] MEDS: QUEtiapine Fumarate 25 MG TABLET PO SCH ×2 (08:33→21:56)
[2021-03-18] MEDS: *HR* SitaGLIPtin 25 MG TABLET PO SCH (08:33)
[2021-03-18] MEDS: Aspirin Enteric Coated 81 MG Tablet PO SCH (08:33)
[2021-03-18] MEDS: Cyanocobalamin (B-12) 1,000 MCG TABLET PO SCH (08:34)
[2021-03-18] MEDS: PARoxetine 20 MG TABLET PO SCH (08:34)
[2021-03-18] MEDS ORDERED: levoFLOXacin 500 MG TABLET PO SCH (09:00)
[2021-03-18] MEDS: Mirtazapine 15 MG TABLET PO SCH (21:56)
[2021-03-19] MEDS: *HR* Heparin 5,000 UNIT/ML VIAL SQ SCH ×2 (05:52→17:31)
[2021-03-19] MEDS: *HR* OxyCODONE Immed Rel 5 MG TABLET PO PRN ×3 (06:09→18:35)
[2021-03-19] MEDS: Aspirin Enteric Coated 81 MG Tablet PO SCH (08:07)
[2021-03-19] MEDS: Gabapentin 100 MG CAPSULE PO SCH ×3 (08:08→20:54)
[2021-03-19] MEDS: *HR* Metformin 500 MG TABLET PO SCH ×2 (08:08→20:53)
[2021-03-19] MEDS: PARoxetine 20 MG TABLET PO SCH (08:08)
[2021-03-19] MEDS: Cyanocobalamin (B-12) 1,000 MCG TABLET PO SCH (08:08)
[2021-03-19] MEDS: *HR* SitaGLIPtin 25 MG TABLET PO SCH (08:08)
[2021-03-19] MEDS: QUEtiapine Fumarate 25 MG TABLET PO SCH ×2 (08:08→20:53)
[2021-03-19] MEDS: Acetaminophen 325 MG TABLET PO PRN (17:22)
[2021-03-19] MEDS: Mirtazapine 15 MG TABLET PO SCH (20:54)
[2021-03-20] MEDS: *HR* OxyCODONE Immed Rel 5 MG TABLET PO PRN ×3 (02:20→21:21)
[2021-03-20] MEDS: *HR* Heparin 5,000 UNIT/ML VIAL SQ SCH ×2 (05:36→16:32)
[2021-03-20] MEDS: *HR* Metformin 500 MG TABLET PO SCH ×2 (08:10→20:56)
[2021-03-20] MEDS: QUEtiapine Fumarate 25 MG TABLET PO SCH ×2 (08:10→20:59)
[2021-03-20] MEDS: Aspirin Enteric Coated 81 MG Tablet PO SCH (08:10)
[2021-03-20] MEDS: Gabapentin 100 MG CAPSULE PO SCH ×3 (08:10→20:57)
[2021-03-20] MEDS: Cyanocobalamin (B-12) 1,000 MCG TABLET PO SCH (08:10)
[2021-03-20] MEDS: *HR* SitaGLIPtin 25 MG TABLET PO SCH (08:11)
[2021-03-20] MEDS: PARoxetine 20 MG TABLET PO SCH (08:11)
[2021-03-20] MEDS: Acetaminophen 325 MG TABLET PO PRN (08:18)
[2021-03-20] MEDS: levoFLOXacin 750 MG TABLET PO SCH (08:55)
[2021-03-20 09:20] LABS: Basophils % 0.3 %; Eosinophils # 0.2 K/mcL (0.0-0.6); Eosinophils % 5.9 %; Hematocrit 32.4 % (37.5-50.1); Hemoglobin 10.6 g/dL (12.9-16.9); Immature Granulocytes % 0.3 % (0-4); Lymphocytes # 0.5 K/mcL (0.6-4.6); Lymphocytes % 12.2 %; Mean Corpuscular HGB Conc 32.7 g/dL (31.6-35.5); Mean Corpuscular Hemoglobin 29.9 pg (28.0-33.3); Mean Corpuscular Volume 91.5 fL (83.0-100.0); Mean Platelet Volume 9.9 fL (9.4-12.4); Monocytes # 0.6 K/mcL (0.0-1.3); Neutrophils # 2.7 K/mcL (1.6-8.9); Platelet Count 158 K/mcL (140-400); Red Blood Count 3.54 M/mcL (4.19-5.50); Red Cell Distribution Width 13.6 % (11.5-14.5); Segmented Neutrophils % 67.3 %; White Blood Count 3.9 K/mcL (4.3-11.1)
[2021-03-20 09:36] LABS: Alanine Aminotransferase 12 Units/L (7-52); Albumin 3.3 g/dL (3.5-5.7); Albumin/Globulin Ratio 1.1 (1.1-2.2); Alkaline Phosphatase 92 Units/L (34-104); Aspartate Amino Transferase 20 Units/L (13-39); BUN/Creatinine Ratio 20 (6-26); Bilirubin,Total 0.4 mg/dL (0.3-1.0); Blood Urea Nitrogen 27 mg/dL (8-23); Calcium 9.1 mg/dL (8.6-10.3); Carbon Dioxide 28 mEq/L (23-29); Chloride 99 mEq/L (98-107); Glucose 147 mg/dL (70-105); Osmolality,Calculated 284 (280-300); Potassium 4.8 mEq/L (3.5-5.1); Sodium 133 mEq/L (136-145); Total Protein 6.3 g/dL (6.4-8.9); eGFR For African Americans > 60 (> 60); eGFR For Non-African Americans 55 (> 60)
[2021-03-20 09:43] LABS: Bilirubin,Urine Negative (Negative); Blood,Urine Negative (Negative); Clarity,Urine Clear (Clear); Color,Urine Colorless (Yellow); Glucose,Urine (UA) Normal (Normal); Ketones,Urine Negative (Negative); Leukocyte Esterase,Urine Negative (Negative); Nitrite,Urine Negative (Negative); Protein,Urine Trace mg/dL (Neg-Trace); Urobilinogen,Urine Normal (Normal)
[2021-03-20 10:07] LABS: Adenovirus Not Detected (Not Detect); Bordetella Pertussis Not Detected (Not Detect); Chlamydophila pneumoniae Not Detected (Not Detect); Coronavirus 229E Not Detected (Not Detect); Coronavirus HKU1 Not Detected (Not Detect); Coronavirus NL63 Not Detected (Not Detect); Coronavirus OC43 Not Detected (Not Detect); Human Metapneumovirus Not Detected (Not Detect); Human Rhinovirus/Enterovirus Not Detected (Not Detect); Influenza A Subtype 2009 H1 Not Detected (Not Detect); Influenza B Not Detected (Not Detect); Mycoplasma pneumoniae Not Detected (Not Detect); Parainfluenza Virus 1 Not Detected (Not Detect); Parainfluenza Virus 2 Not Detected (Not Detect); Parainfluenza Virus 3 Not Detected (Not Detect); Parainfluenza Virus 4 Not Detected (Not Detect); Respiratory Syncytial Virus Not Detected (Not Detect); SARS-CoV-2 DETECTED (Not Detect)
[2021-03-20] MEDS ORDERED: 0.9 % Sodium Chloride 1,000 ML IVC SCH (10:15)
[2021-03-20] MEDS: Mirtazapine 15 MG TABLET PO SCH (20:58)
[2021-03-21] MEDS: *HR* Heparin 5,000 UNIT/ML VIAL SQ SCH ×2 (04:58→17:27)
[2021-03-21] MEDS: *HR* OxyCODONE Immed Rel 5 MG TABLET PO PRN (05:47)
[2021-03-21] MEDS: *HR* Metformin 500 MG TABLET PO SCH ×2 (08:09→20:47)
[2021-03-21] MEDS: PARoxetine 20 MG TABLET PO SCH (08:09)
[2021-03-21] MEDS: Cyanocobalamin (B-12) 1,000 MCG TABLET PO SCH (08:09)
[2021-03-21] MEDS: levoFLOXacin 750 MG TABLET PO SCH (08:09)
[2021-03-21] MEDS: Aspirin Enteric Coated 81 MG Tablet PO SCH (08:09)
[2021-03-21] MEDS: Gabapentin 100 MG CAPSULE PO SCH ×3 (08:10→20:47)
[2021-03-21] MEDS: QUEtiapine Fumarate 25 MG TABLET PO SCH ×2 (08:10→20:47)
[2021-03-21] MEDS: *HR* SitaGLIPtin 25 MG TABLET PO SCH (08:10)
[2021-03-21] MEDS: *HR* HYDROcodone/Acet 5/325 mg TABLET PO PRN ×2 (12:05→21:12)
[2021-03-21] MEDS: Mirtazapine 15 MG TABLET PO SCH (20:47)
[2021-03-22] MEDS: *HR* Heparin 5,000 UNIT/ML VIAL SQ SCH ×2 (04:23→17:32)
[2021-03-22] MEDS: *HR* HYDROcodone/Acet 5/325 mg TABLET PO PRN ×2 (05:36→13:21)
[2021-03-22] MEDS: Cyanocobalamin (B-12) 1,000 MCG TABLET PO SCH (09:10)
[2021-03-22] MEDS: *HR* SitaGLIPtin 25 MG TABLET PO SCH (09:10)
[2021-03-22] MEDS: *HR* Metformin 500 MG TABLET PO SCH ×2 (09:10→20:05)
[2021-03-22] MEDS: QUEtiapine Fumarate 25 MG TABLET PO SCH ×2 (09:10→20:05)
[2021-03-22] MEDS: Gabapentin 100 MG CAPSULE PO SCH ×3 (09:10→20:05)
[2021-03-22] MEDS: Aspirin Enteric Coated 81 MG Tablet PO SCH (09:10)
[2021-03-22] MEDS: PARoxetine 20 MG TABLET PO SCH (09:10)
[2021-03-22] MEDS: levoFLOXacin 750 MG TABLET PO SCH (09:11)
[2021-03-22] MEDS: Mirtazapine 15 MG TABLET PO SCH (20:04)
[2021-03-22] MEDS: *HR* OxyCODONE Immed Rel 5 MG TABLET PO PRN (20:05)
[2021-03-23] MEDS: *HR* OxyCODONE Immed Rel 5 MG TABLET PO PRN (03:25)
[2021-03-23] MEDS: *HR* Heparin 5,000 UNIT/ML VIAL SQ SCH (06:06)
[2021-03-23] MEDS: levoFLOXacin 750 MG TABLET PO SCH (07:51)
[2021-03-23] MEDS: QUEtiapine Fumarate 25 MG TABLET PO SCH (07:51)
[2021-03-23] MEDS: PARoxetine 20 MG TABLET PO SCH (07:51)
[2021-03-23] MEDS: *HR* SitaGLIPtin 25 MG TABLET PO SCH (07:51)
[2021-03-23] MEDS: Gabapentin 100 MG CAPSULE PO SCH (07:51)
[2021-03-23] MEDS: Aspirin Enteric Coated 81 MG Tablet PO SCH (07:52)
[2021-03-23] MEDS: *HR* Metformin 500 MG TABLET PO SCH (07:52)
[2021-03-23] MEDS: *HR* HYDROcodone/Acet 5/325 mg TABLET PO PRN (07:52)
[2021-03-23] MEDS: Cyanocobalamin (B-12) 1,000 MCG TABLET PO SCH (07:52)
[2021-03-23 10:44] VITALS: BP 109/71; PULSE 72; TEMP 98.5; O2SAT 93
== END 2021-03-23 11:07 | DRG 682 ==
LOC: EMEROOARM 13:17 → 3NENU 13:17 → SUATTDRO 17:59 → 3NENU 18:27 → 3BNU 03-18 03:02
PROVIDERS: ADMIT Internal Medicine; ATTEND Internal Medicine

== ENCOUNTER 2021-04-12 16:10 | Inpatient (IN) ==
[2021-04-12 17:44] LABS: Basophils % 0.3 %; Eosinophils # 0.2 K/mcL (0.0-0.6); Eosinophils % 1.9 %; Hematocrit 35.7 % (37.5-50.1); Hemoglobin 11.9 g/dL (12.9-16.9); Immature Granulocytes % 0.5 % (0-4); Lymphocytes # 0.7 K/mcL (0.6-4.6); Lymphocytes % 6.2 %; Mean Corpuscular HGB Conc 33.3 g/dL (31.6-35.5); Mean Corpuscular Hemoglobin 29.8 pg (28.0-33.3); Mean Corpuscular Volume 89.5 fL (83.0-100.0); Mean Platelet Volume 9.3 fL (9.4-12.4); Monocytes # 0.9 K/mcL (0.0-1.3); Monocytes % 7.4 %; Neutrophils # 9.9 K/mcL (1.6-8.9); Platelet Count 283 K/mcL (140-400); Red Blood Count 3.99 M/mcL (4.19-5.50); Red Cell Distribution Width 13.2 % (11.5-14.5); Segmented Neutrophils % 83.7 %; White Blood Count 11.9 K/mcL (4.3-11.1)
[2021-04-12 17:51] LABS: VBG Ionized Calcium 0.77 mmol/L (1.15-1.35)
[2021-04-12 18:08] LABS: BUN/Creatinine Ratio 17 (6-26); Blood Urea Nitrogen 18 mg/dL (8-23); Calcium 6.3 mg/dL (8.6-10.3); Carbon Dioxide 26 mEq/L (23-29); Chloride 93 mEq/L (98-107); Glucose 171 mg/dL (70-105); Magnesium 0.6 mg/dL (1.6-2.6); Osmolality,Calculated 276 (280-300); Phosphorous 5.2 mg/dL (2.7-4.5); Potassium 4.6 mEq/L (3.5-5.1); Sodium 130 mEq/L (136-145); eGFR For African Americans > 60 (> 60); eGFR For Non-African Americans > 60 (> 60)
[2021-04-12] MEDS ORDERED: Calcium Gluconate 1,000 MG/10 ML VIAL IVP STA (19:06)
[2021-04-12] MEDS: Calcium Gluconate 1gm/50mL 1 GM/50 ML BAG IVPB SCH ×2 (19:36→20:00)
[2021-04-12 20:02] LABS: Albumin 3.3 g/dL (3.5-5.7); Albumin/Globulin Ratio 0.8 (1.1-2.2); Bilirubin,Direct 0.2 mg/dL (0.0-0.2); Bilirubin,Indirect 0.4 mg/dL (0.0-1.0); Bilirubin,Total 0.6 mg/dL (0.3-1.0); Globulin 3.9 g/dL (2.4-3.5); Total Protein 7.2 g/dL (6.4-8.9)
[2021-04-12] MEDS ORDERED: *HR* Dextrose 50 % in Water (Syg) 50 ML SYRINGE IVP PRN (22:28)
[2021-04-12] MEDS ORDERED: Dextrose Gel 15 GM/37.5 ML TUBE PO PRN ×2 (22:28)
[2021-04-12] MEDS ORDERED: D5% in Water 1,000 ML IVC PRN (22:28)
[2021-04-12] MEDS: Mirtazapine 15 MG TABLET PO SCH (23:44)
[2021-04-13] MEDS ORDERED: Ondansetron ODT 4 MG TAB.RAPDIS SL PRN (00:28)
[2021-04-13 02:06] LABS: VBG Ionized Calcium 0.79 mmol/L (1.15-1.35)
[2021-04-13 02:18] LABS: BUN/Creatinine Ratio 18 (6-26); Blood Urea Nitrogen 20 mg/dL (8-23); Calcium 6.4 mg/dL (8.6-10.3); Carbon Dioxide 25 mEq/L (23-29); Chloride 94 mEq/L (98-107); Glucose 105 mg/dL (70-105); Osmolality,Calculated 279 (280-300); Phosphorous 5.2 mg/dL (2.7-4.5); Potassium 3.9 mEq/L (3.5-5.1); Sodium 133 mEq/L (136-145); eGFR For African Americans > 60 (> 60); eGFR For Non-African Americans > 60 (> 60)
[2021-04-13] MEDS ORDERED: Ergocalciferol (VIT D2) 50,000 UNIT (1.25MG) CAP PO SCH (05:00)
[2021-04-13] MEDS ORDERED: *HR* Heparin 5,000 UNIT/ML VIAL SQ SCH (06:00)
[2021-04-13] MEDS: Calcium Gluconate 1gm/50mL 1 GM/50 ML BAG IVPB SCH ×2 (06:44→11:11)
[2021-04-13] MEDS ORDERED: Calcium Gluconate 1gm/50mL 1 GM/50 ML BAG IVPB ONE ×2 (07:37→14:02)
[2021-04-13] MEDS: Insulin LISPRO 300 UNITS/3 ML VIAL SUBQ SCH ×3 (08:02→16:25)
[2021-04-13] MEDS: Cholecalciferol (D-3) 1,000 UNIT (25MCG) TABLET PO SCH (08:06)
[2021-04-13] MEDS ORDERED: Baclofen 10 MG TABLET PO PRN (09:40)
[2021-04-13] MEDS: *HR* Enoxaparin 40 MG/0.4 ML SYRINGE SQ SCH (10:05)
[2021-04-13 13:08] LABS: BUN/Creatinine Ratio 17 (6-26); Blood Urea Nitrogen 16 mg/dL (8-23); Calcium 7.2 mg/dL (8.6-10.3); Carbon Dioxide 26 mEq/L (23-29); Chloride 97 mEq/L (98-107); Glucose 145 mg/dL (70-105); Osmolality,Calculated 282 (280-300); Potassium 3.9 mEq/L (3.5-5.1); Sodium 134 mEq/L (136-145); eGFR For African Americans > 60 (> 60); eGFR For Non-African Americans > 60 (> 60)
[2021-04-13 13:09] LABS: VBG Ionized Calcium 0.94 mmol/L (1.15-1.35)
[2021-04-13] MEDS: Gabapentin 100 MG CAPSULE PO SCH ×2 (15:29→20:15)
[2021-04-13] MEDS: Mirtazapine 15 MG TABLET PO SCH (20:15)
[2021-04-14 03:21] LABS: VBG Ionized Calcium 1.04 mmol/L (1.15-1.35)
[2021-04-14 03:34] LABS: BUN/Creatinine Ratio 13 (6-26); Blood Urea Nitrogen 9 mg/dL (8-23); Calcium 7.8 mg/dL (8.6-10.3); Carbon Dioxide 27 mEq/L (23-29); Chloride 101 mEq/L (98-107); Glucose 135 mg/dL (70-105); Magnesium 1.6 mg/dL (1.6-2.6); Osmolality,Calculated 285 (280-300); Phosphorous 3.5 mg/dL (2.7-4.5); Sodium 137 mEq/L (136-145); eGFR For African Americans > 60 (> 60); eGFR For Non-African Americans > 60 (> 60)
[2021-04-14] MEDS ORDERED: Calcium Gluconate 1gm/50mL 1 GM/50 ML BAG IVPB ONE (07:07)
[2021-04-14] MEDS: Insulin LISPRO 300 UNITS/3 ML VIAL SUBQ SCH ×3 (08:08→16:40)
[2021-04-14] MEDS: *HR* Enoxaparin 40 MG/0.4 ML SYRINGE SQ SCH (08:11)
[2021-04-14] MEDS: Aspirin Enteric Coated 81 MG Tablet PO SCH (08:13)
[2021-04-14] MEDS: Furosemide 20 MG TABLET PO SCH (08:13)
[2021-04-14] MEDS: Gabapentin 100 MG CAPSULE PO SCH ×3 (08:14→20:42)
[2021-04-14] MEDS: PARoxetine 20 MG TABLET PO SCH (08:14)
[2021-04-14] MEDS: Cholecalciferol (D-3) 1,000 UNIT (25MCG) TABLET PO SCH (08:14)
[2021-04-14] MEDS: Mirtazapine 15 MG TABLET PO SCH (20:43)
[2021-04-15 00:11] VITALS: O2SAT 96
[2021-04-15 01:32] LABS: VBG Ionized Calcium 1.04 mmol/L (1.15-1.35)
[2021-04-15 01:51] LABS: BUN/Creatinine Ratio 12 (6-26); Blood Urea Nitrogen 10 mg/dL (8-23); Calcium 8.2 mg/dL (8.6-10.3); Carbon Dioxide 24 mEq/L (23-29); Chloride 100 mEq/L (98-107); Glucose 169 mg/dL (70-105); Magnesium 1.4 mg/dL (1.6-2.6); Osmolality,Calculated 279 (280-300); Sodium 133 mEq/L (136-145); eGFR For African Americans > 60 (> 60); eGFR For Non-African Americans > 60 (> 60)
[2021-04-15 07:52] VITALS: BP 157/84; PULSE 75; TEMP 99.1
[2021-04-15] MEDS: PARoxetine 20 MG TABLET PO SCH (08:17)
[2021-04-15] MEDS: Gabapentin 100 MG CAPSULE PO SCH (08:17)
[2021-04-15] MEDS: Calcium Gluconate 1gm/50mL 1 GM/50 ML BAG IVPB SCH ×2 (08:17→09:37)
[2021-04-15] MEDS: Furosemide 20 MG TABLET PO SCH (08:18)
[2021-04-15] MEDS: Aspirin Enteric Coated 81 MG Tablet PO SCH (08:18)
[2021-04-15] MEDS: Insulin LISPRO 300 UNITS/3 ML VIAL SUBQ SCH (08:21)
[2021-04-15] MEDS: *HR* Enoxaparin 40 MG/0.4 ML SYRINGE SQ SCH (08:22)
[2021-04-15] MEDS ORDERED: Ergocalciferol (VIT D2) 50,000 UNIT (1.25MG) CAP PO SCH (09:00)
[2021-04-15] MEDS ORDERED: Cholecalciferol (D-3) 1,000 UNIT (25MCG) TABLET PO SCH (09:00)
[2021-04-15] MEDS ORDERED: Furosemide 20 MG TABLET PO PRN (10:49)
== END 2021-04-15 11:10 | DRG 641 ==
LOC: 2ANU 16:10 → EMEROOARM 16:10 → SUATTDRO 21:15 → 2ANU 22:31
PROVIDERS: ADMIT Family Medicine; ATTEND Internal Medicine

== ENCOUNTER 2021-04-23 06:02 | Observation (INO) ==
[2021-04-23 06:33] LABS: Basophils # 0.1 K/mcL (0.0-0.2); Basophils % 0.5 %; Eosinophils # 0.5 K/mcL (0.0-0.6); Eosinophils % 4.5 %; Hematocrit 36.2 % (37.5-50.1); Hemoglobin 11.7 g/dL (12.9-16.9); Immature Granulocytes % 0.4 % (0-4); Lymphocytes # 1.8 K/mcL (0.6-4.6); Lymphocytes % 17.3 %; Mean Corpuscular HGB Conc 32.3 g/dL (31.6-35.5); Mean Corpuscular Volume 89.6 fL (83.0-100.0); Mean Platelet Volume 8.7 fL (9.4-12.4); Monocytes # 0.7 K/mcL (0.0-1.3); Monocytes % 7.3 %; Neutrophils # 7.1 K/mcL (1.6-8.9); Platelet Count 335 K/mcL (140-400); Red Blood Count 4.04 M/mcL (4.19-5.50); Red Cell Distribution Width 13.5 % (11.5-14.5); White Blood Count 10.2 K/mcL (4.3-11.1)
[2021-04-23 06:54] LABS: Potassium 4.9 mEq/L (3.5-5.1)
[2021-04-23] MEDS ORDERED: 0.9 % Sodium Chloride 500 ML IVC ONE (07:47)
[2021-04-23] MEDS ORDERED: Naloxone 0.4 MG/ML INJ IVP PRN (08:05)
[2021-04-23] MEDS ORDERED: D5% in Water 1,000 ML IVC PRN (08:05)
[2021-04-23] MEDS ORDERED: *HR* Dextrose 50 % in Water (Syg) 50 ML SYRINGE IVP PRN (08:05)
[2021-04-23] MEDS ORDERED: Dextrose Gel 15 GM/37.5 ML TUBE PO PRN ×2 (08:05)
[2021-04-23] MEDS ORDERED: Acetaminophen 325 MG TABLET PO PRN (08:05)
[2021-04-23] MEDS ORDERED: Ondansetron 4 MG/2 ML VIAL IVP PRN (08:05)
[2021-04-23] MEDS ORDERED: Baclofen 10 MG TABLET PO PRN (11:37)
[2021-04-23 12:23] LABS: VBG Ionized Calcium 0.92 mmol/L (1.15-1.35)
[2021-04-23] MEDS: Insulin LISPRO 300 UNITS/3 ML VIAL SUBQ SCH ×3 (13:15→21:17)
[2021-04-23] MEDS: Gabapentin 100 MG CAPSULE PO SCH ×2 (16:55→22:06)
[2021-04-23] MEDS: PARoxetine 20 MG TABLET PO SCH (17:03)
[2021-04-23] MEDS: QUEtiapine Fumarate 25 MG TABLET PO SCH (22:06)
[2021-04-23] MEDS: Mirtazapine 15 MG TABLET PO SCH (22:06)
[2021-04-23] MEDS: Melatonin 3 MG TABLET PO PRN (22:06)
[2021-04-23] MEDS: hydrOXYzine pamoate 25 MG CAPSULE PO SCH (22:06)
[2021-04-24 01:51] LABS: Hemoglobin 11.2 g/dL (12.9-16.9); Mean Corpuscular HGB Conc 32.9 g/dL (31.6-35.5); Mean Corpuscular Hemoglobin 29.7 pg (28.0-33.3); Mean Corpuscular Volume 90.2 fL (83.0-100.0); Mean Platelet Volume 9.2 fL (9.4-12.4); Platelet Count 347 K/mcL (140-400); Red Blood Count 3.77 M/mcL (4.19-5.50); Red Cell Distribution Width 13.4 % (11.5-14.5); White Blood Count 9.4 K/mcL (4.3-11.1)
[2021-04-24 02:07] LABS: Calcium 8.1 mg/dL (8.6-10.3); Magnesium 1.5 mg/dL (1.6-2.6); Potassium 4.8 mEq/L (3.5-5.1)
[2021-04-24] MEDS: *HR* Enoxaparin 40 MG/0.4 ML SYRINGE SQ SCH (06:03)
[2021-04-24] MEDS ORDERED: Calcium Gluconate 1,000 MG/10 ML VIAL IVPB ONE (08:12)
[2021-04-24] MEDS ORDERED: Calcium Gluconate 1gm/50mL 1 GM/50 ML BAG IVPB ONE (08:47)
[2021-04-24] MEDS: PARoxetine 20 MG TABLET PO SCH (09:27)
[2021-04-24] MEDS: QUEtiapine Fumarate 25 MG TABLET PO SCH ×2 (09:28→21:23)
[2021-04-24] MEDS: Aspirin Enteric Coated 81 MG Tablet PO SCH (09:28)
[2021-04-24] MEDS: Gabapentin 100 MG CAPSULE PO SCH ×3 (09:28→21:23)
[2021-04-24] MEDS: Magnesium Oxide 400 MG TABLET PO SCH (09:29)
[2021-04-24] MEDS: Insulin LISPRO 300 UNITS/3 ML VIAL SUBQ SCH ×4 (09:29→21:23)
[2021-04-24] MEDS: Melatonin 3 MG TABLET PO PRN (21:23)
[2021-04-24] MEDS: Mirtazapine 15 MG TABLET PO SCH (21:24)
[2021-04-24] MEDS: hydrOXYzine pamoate 25 MG CAPSULE PO SCH (21:24)
[2021-04-25 02:27] LABS: Calcium 8.3 mg/dL (8.6-10.3)
[2021-04-25] MEDS: *HR* Enoxaparin 40 MG/0.4 ML SYRINGE SQ SCH (05:57)
[2021-04-25 06:10] LABS: Magnesium 1.5 mg/dL (1.6-2.6)
[2021-04-25] MEDS: QUEtiapine Fumarate 25 MG TABLET PO SCH ×2 (08:54→20:54)
[2021-04-25] MEDS: Aspirin Enteric Coated 81 MG Tablet PO SCH (08:54)
[2021-04-25] MEDS: Gabapentin 100 MG CAPSULE PO SCH ×3 (08:54→20:53)
[2021-04-25] MEDS: PARoxetine 20 MG TABLET PO SCH (08:54)
[2021-04-25] MEDS: Magnesium Oxide 400 MG TABLET PO SCH ×3 (08:54→20:53)
[2021-04-25] MEDS: Insulin LISPRO 300 UNITS/3 ML VIAL SUBQ SCH ×4 (08:57→19:47)
[2021-04-25 10:36] LABS: BUN/Creatinine Ratio 20 (6-26); Blood Urea Nitrogen 28 mg/dL (8-23); Calcium 8.7 mg/dL (8.6-10.3); Carbon Dioxide 26 mEq/L (23-29); Chloride 99 mEq/L (98-107); Glucose 281 mg/dL (70-105); Osmolality,Calculated 292 (280-300); Potassium 4.6 mEq/L (3.5-5.1); Sodium 133 mEq/L (136-145); eGFR For African Americans > 60 (> 60); eGFR For Non-African Americans 51 (> 60)
[2021-04-25] MEDS ORDERED: Ergocalciferol (VIT D2) 50,000 UNIT (1.25MG) CAP PO SCH (11:00)
[2021-04-25] MEDS: hydrOXYzine pamoate 25 MG CAPSULE PO SCH (20:53)
[2021-04-25] MEDS: Melatonin 3 MG TABLET PO PRN (20:53)
[2021-04-25] MEDS: Mirtazapine 15 MG TABLET PO SCH (20:54)
[2021-04-26 02:20] LABS: Calcium 8.4 mg/dL (8.6-10.3)
[2021-04-26 05:15] LABS: Basophils % 0.4 %; Eosinophils # 0.3 K/mcL (0.0-0.6); Eosinophils % 3.5 %; Hematocrit 33.7 % (37.5-50.1); Hemoglobin 10.6 g/dL (12.9-16.9); Immature Granulocytes % 0.2 % (0-4); Lymphocytes # 1.7 K/mcL (0.6-4.6); Lymphocytes % 20.3 %; Mean Corpuscular HGB Conc 31.5 g/dL (31.6-35.5); Mean Corpuscular Hemoglobin 28.6 pg (28.0-33.3); Mean Corpuscular Volume 91.1 fL (83.0-100.0); Mean Platelet Volume 9.6 fL (9.4-12.4); Monocytes # 0.6 K/mcL (0.0-1.3); Monocytes % 7.2 %; Neutrophils # 5.8 K/mcL (1.6-8.9); Platelet Count 326 K/mcL (140-400); Red Cell Distribution Width 13.5 % (11.5-14.5); Segmented Neutrophils % 68.4 %; White Blood Count 8.4 K/mcL (4.3-11.1)
[2021-04-26 05:30] LABS: BUN/Creatinine Ratio 19 (6-26); Blood Urea Nitrogen 27 mg/dL (8-23); Carbon Dioxide 25 mEq/L (23-29); Chloride 99 mEq/L (98-107); Glucose 192 mg/dL (70-105); Magnesium 1.7 mg/dL (1.6-2.6); Osmolality,Calculated 286 (280-300); Potassium 4.8 mEq/L (3.5-5.1); Sodium 133 mEq/L (136-145); eGFR For African Americans > 60 (> 60); eGFR For Non-African Americans 52 (> 60)
[2021-04-26] MEDS: *HR* Enoxaparin 40 MG/0.4 ML SYRINGE SQ SCH (06:22)
[2021-04-26] MEDS: Gabapentin 100 MG CAPSULE PO SCH ×2 (08:12→14:40)
[2021-04-26] MEDS: Magnesium Oxide 400 MG TABLET PO SCH ×2 (08:12→14:41)
[2021-04-26] MEDS: PARoxetine 20 MG TABLET PO SCH (08:13)
[2021-04-26] MEDS: QUEtiapine Fumarate 25 MG TABLET PO SCH (08:13)
[2021-04-26] MEDS: Insulin LISPRO 300 UNITS/3 ML VIAL SUBQ SCH ×2 (08:13→12:02)
[2021-04-26] MEDS: Aspirin Enteric Coated 81 MG Tablet PO SCH (08:13)
[2021-04-26 11:35] VITALS: BP 152/87; PULSE 75; TEMP 97.4; O2SAT 96
== END 2021-04-26 16:15 ==
LOC: 2ANU 06:02 → EMEROOARM 06:02 → SUATTDRO 13:26 → 2ANU 14:03
PROVIDERS: ADMIT Internal Medicine; ATTEND Internal Medicine

== ENCOUNTER 2021-05-16 07:45 | Inpatient (IN) ==
[2021-05-16 09:12] LABS: VBG Ionized Calcium 1.03 mmol/L (1.15-1.35)
[2021-05-16 09:15] LABS: Basophils % 0.2 %; Eosinophils % 0.3 %; Hematocrit 31.6 % (37.5-50.1); Immature Granulocytes % 0.6 % (0-4); Lymphocytes % 8.7 %; Mean Corpuscular HGB Conc 30.7 g/dL (31.6-35.5); Mean Corpuscular Hemoglobin 28.2 pg (28.0-33.3); Mean Corpuscular Volume 91.9 fL (83.0-100.0); Mean Platelet Volume 9.7 fL (9.4-12.4); Monocytes # 0.4 K/mcL (0.0-1.3); Monocytes % 3.4 %; Neutrophils # 9.8 K/mcL (1.6-8.9); Platelet Count 231 K/mcL (140-400); Red Blood Count 3.44 M/mcL (4.19-5.50); Red Cell Distribution Width 14.6 % (11.5-14.5); Segmented Neutrophils % 86.8 %; White Blood Count 11.3 K/mcL (4.3-11.1)
[2021-05-16 09:26] LABS: Hemoglobin 9.7 g/dL (12.9-16.9)
[2021-05-16 09:45] LABS: BUN/Creatinine Ratio 20 (6-26); Blood Urea Nitrogen 53 mg/dL (8-23); Calcium 7.7 mg/dL (8.6-10.3); Carbon Dioxide 21 mEq/L (23-29); Chloride 105 mEq/L (98-107); Glucose 251 mg/dL (70-105); Osmolality,Calculated 309 (280-300); Potassium 5.2 mEq/L (3.5-5.1); Sodium 138 mEq/L (136-145); Troponin I < 0.03 ng/mL (< 0.04); eGFR For African Americans 30 (> 60); eGFR For Non-African Americans 24 (> 60)
[2021-05-16 10:00] LABS: Thyroid Stimulating Hormone 1.105 mcIU/mL (0.340-5.600)
[2021-05-16] MEDS ORDERED: 0.9 % Sodium Chloride 1,000 ML IVC ONE (10:06)
[2021-05-16] MEDS ORDERED: Naloxone 0.4 MG/ML INJ IVP PRN (10:48)
[2021-05-16] MEDS ORDERED: Ondansetron 4 MG/2 ML VIAL IVP PRN (10:48)
[2021-05-16] MEDS ORDERED: Acetaminophen 325 MG TABLET PO PRN (10:48)
[2021-05-16] MEDS ORDERED: Dextrose Gel 15 GM/37.5 ML TUBE PO PRN ×2 (11:33)
[2021-05-16] MEDS ORDERED: D5% in Water 1,000 ML IVC PRN (11:33)
[2021-05-16] MEDS ORDERED: *HR* Dextrose 50 % in Water (Syg) 50 ML SYRINGE IVP PRN (11:33)
[2021-05-16] MEDS ORDERED: *HR* HYDROcodone/Acet 5/325 mg TABLET PO PRN (11:40)
[2021-05-16] MEDS: Ringers Solution, Lactated 1,000 ML IVC SCH (13:37)
[2021-05-16] MEDS ORDERED: Ergocalciferol (VIT D2) 50,000 UNIT (1.25MG) CAP PO SCH (15:15)
[2021-05-16] MEDS ORDERED: 0.9 % Sodium Chloride 1,000 ML ONE (16:30)
[2021-05-16] MEDS: 0.9 % Sodium Chloride 1,000 ML IV ONE ×2 (16:34→17:59)
[2021-05-16 17:28] LABS: Hematocrit 29.3 % (37.5-50.1); Hemoglobin 8.8 g/dL (12.9-16.9)
[2021-05-16] MEDS: Insulin LISPRO 300 UNITS/3 ML VIAL SUBQ SCH (17:28)
[2021-05-16] MEDS ORDERED: Albumin 25% 25gram/100mL 25 GM/100 ML IV.SOLN ONE (17:40)
[2021-05-16] MEDS ORDERED: Isovue-370 500 ML BOTTLE IVP ONE (17:58)
[2021-05-16] MEDS: Albumin 25% 25gram/100mL 25 GM/100 ML IV.SOLN IVPB SCH (18:53)
[2021-05-16 19:18] LABS: Bilirubin,Urine Negative (Negative); Blood,Urine Negative (Negative); Clarity,Urine Clear (Clear); Color,Urine Yellow (Yellow); Glucose,Urine (UA) 30 mg/dL (Normal); Hyaline Casts,Urine Moderate per lpf (None Seen); Ketones,Urine Negative (Negative); Leukocyte Esterase,Urine Negative (Negative); Mucus,Urine Few per lpf (None-Few); Nitrite,Urine Negative (Negative); PH,Urine 5.5 pH Units (5.0-8.0); Protein,Urine 30 mg/dL (Neg-Trace); RBC,Urine 0-3 per hpf (0-3); Specific Gravity,Urine 1.023 (1.010-1.025); Squamous Epithelial Cell,Urine Few per hpf (None-Few); Urobilinogen,Urine Normal (Normal); WBC,Urine 0-3 per hpf (0-3)
[2021-05-16 19:53] LABS: ABG Base Excess -7 mEq/L (-2 to 3); ABG HCO3 20 mEq/L (21-27); ABG Oxygen Saturation 96 % (95-98); ABG PCO2 45 mmHg (35-45); ABG PH 7.26 pH Units (7.32-7.45); ABG PO2 98 mmHg (85-104); ABG TCO2 21 mEq/L (20-26)
[2021-05-16 20:33] LABS: Hematocrit 29.9 % (37.5-50.1); Hemoglobin 9.3 g/dL (12.9-16.9)
[2021-05-16] MEDS: *HR* Heparin 5,000 UNIT/ML VIAL SQ SCH (20:40)
[2021-05-16] MEDS: Mirtazapine 15 MG TABLET PO SCH (20:41)
[2021-05-16] MEDS: Gabapentin 100 MG CAPSULE PO SCH (20:41)
[2021-05-16] MEDS: Magnesium Oxide 400 MG TABLET PO SCH (20:41)
[2021-05-16] MEDS: QUEtiapine Fumarate 25 MG TABLET PO SCH (20:41)
[2021-05-16] MEDS: hydrOXYzine pamoate 25 MG CAPSULE PO SCH (20:42)
[2021-05-17] MEDS ORDERED: Albumin 25% 25gram/100mL 25 GM/100 ML IV.SOLN IVPB SCH
[2021-05-17 00:42] LABS: Basophils % 0.5 %; Eosinophils # 0.2 K/mcL (0.0-0.6); Eosinophils % 2.1 %; Hematocrit 29.1 % (37.5-50.1); Hemoglobin 9.1 g/dL (12.9-16.9); Immature Granulocytes % 0.5 % (0-4); Lymphocytes # 1.4 K/mcL (0.6-4.6); Lymphocytes % 16.7 %; Mean Corpuscular HGB Conc 31.3 g/dL (31.6-35.5); Mean Corpuscular Volume 92.7 fL (83.0-100.0); Mean Platelet Volume 9.6 fL (9.4-12.4); Monocytes # 0.5 K/mcL (0.0-1.3); Monocytes % 6.4 %; Neutrophils # 6.3 K/mcL (1.6-8.9); Platelet Count 192 K/mcL (140-400); Red Blood Count 3.14 M/mcL (4.19-5.50); Red Cell Distribution Width 14.9 % (11.5-14.5); Segmented Neutrophils % 73.8 %; White Blood Count 8.5 K/mcL (4.3-11.1)
[2021-05-17 00:46] LABS: INR 1.3; Prothrombin Time 14.4 Seconds (9.4-12.1)
[2021-05-17 00:53] LABS: Calcium 7.4 mg/dL (8.6-10.3); Magnesium 1.4 mg/dL (1.6-2.6); Potassium 4.2 mEq/L (3.5-5.1)
[2021-05-17 00:55] LABS: Iron 102 mcg/dL (65-175)
[2021-05-17 01:14] LABS: Ferritin 161 ng/mL (20-250)
[2021-05-17 01:22] LABS: Folate 9.6 ng/mL (3.0-16.0)
[2021-05-17] MEDS: Ringers Solution, Lactated 1,000 ML IVC SCH (01:49)
[2021-05-17] MEDS: Calcium Gluconate 1gm/50mL 1 GM/50 ML BAG IVPB SCH ×2 (02:02→02:38)
[2021-05-17] MEDS: Insulin LISPRO 300 UNITS/3 ML VIAL SUBQ SCH ×5 (05:40→21:29)
[2021-05-17 06:04] LABS: Hematocrit 30.3 % (37.5-50.1); Hemoglobin 9.3 g/dL (12.9-16.9)
[2021-05-17] MEDS: Albumin 25% 25gram/100mL 25 GM/100 ML IV.SOLN IVPB SCH ×3 (06:51→21:38)
[2021-05-17] MEDS: *HR* Heparin 5,000 UNIT/ML VIAL SQ SCH (06:51)
[2021-05-17] MEDS ORDERED: *HR* HYDROcodone/Acet 5/325 mg TABLET PO PRN (07:49)
[2021-05-17] MEDS: Aspirin Enteric Coated 81 MG Tablet PO SCH (08:19)
[2021-05-17] MEDS: PARoxetine 20 MG TABLET PO SCH (08:19)
[2021-05-17] MEDS: QUEtiapine Fumarate 25 MG TABLET PO SCH (08:23)
[2021-05-17] MEDS: Gabapentin 100 MG CAPSULE PO SCH (08:23)
[2021-05-17] MEDS: Sennosides/Docusate Sodium TABLET PO SCH (08:40)
[2021-05-17 08:41] LABS: ABG Base Excess -4 mEq/L (-2 to 3); ABG HCO3 23 mEq/L (21-27); ABG Oxygen Saturation 90 % (95-98); ABG PCO2 45 mmHg (35-45); ABG PH 7.31 pH Units (7.32-7.45); ABG PO2 64 mmHg (85-104); ABG TCO2 24 mEq/L (20-26)
[2021-05-17] MEDS ORDERED: Cholecalciferol (D-3) 1,000 UNIT (25MCG) TABLET PO SCH (09:00)
[2021-05-17] MEDS ORDERED: Furosemide 20 MG TABLET PO SCH (09:00)
[2021-05-17 10:55] LABS: Chloride,Urine 21 mEq/L; Creatinine,Urine 9 mg/dL; Potassium,Urine < 2.0 mEq/L
[2021-05-17 12:07] LABS: Amphetamine Screen,Urine Negative ng/mL (Cutoff=1000); Barbiturate Screen,Urine Negative ng/mL (Cutoff=200)
[2021-05-17 12:08] LABS: Benzodiazepines Screen,Urine Negative ng/mL (Cutoff=300); Cannabinoid Screen,Urine Negative ng/mL (Cutoff = 50); Cocaine Screen,Urine Negative ng/mL (Cutoff= 300); Opiate Screen,Urine Negative ng/mL (Cutoff=300); Phencyclidine Screen,Urine Negative ng/mL (Cutoff=25)
[2021-05-17] MEDS: calcitrioL 0.25 MCG CAPSULE PO SCH (15:56)
[2021-05-17] MEDS: hydrOXYzine pamoate 25 MG CAPSULE PO SCH (21:35)
[2021-05-17] MEDS: Mirtazapine 15 MG TABLET PO SCH (21:35)
[2021-05-18] MEDS: Albumin 25% 25gram/100mL 25 GM/100 ML IV.SOLN IVPB SCH ×3 (06:23→18:18)
[2021-05-18 07:03] LABS: Basophils % 0.5 %; Eosinophils # 0.2 K/mcL (0.0-0.6); Eosinophils % 3.3 %; Hematocrit 26.7 % (37.5-50.1); Hemoglobin 8.7 g/dL (12.9-16.9); Immature Granulocytes % 0.5 % (0-4); Lymphocytes # 1.3 K/mcL (0.6-4.6); Lymphocytes % 22.6 %; Mean Corpuscular HGB Conc 32.6 g/dL (31.6-35.5); Mean Corpuscular Hemoglobin 29.7 pg (28.0-33.3); Mean Corpuscular Volume 91.1 fL (83.0-100.0); Mean Platelet Volume 9.6 fL (9.4-12.4); Monocytes # 0.5 K/mcL (0.0-1.3); Monocytes % 7.8 %; Neutrophils # 3.8 K/mcL (1.6-8.9); Platelet Count 178 K/mcL (140-400); Red Blood Count 2.93 M/mcL (4.19-5.50); Red Cell Distribution Width 14.7 % (11.5-14.5); Segmented Neutrophils % 65.3 %; White Blood Count 5.8 K/mcL (4.3-11.1)
[2021-05-18] MEDS: Insulin LISPRO 300 UNITS/3 ML VIAL SUBQ SCH ×4 (07:19→20:14)
[2021-05-18] MEDS: PARoxetine 20 MG TABLET PO SCH (07:27)
[2021-05-18] MEDS: calcitrioL 0.25 MCG CAPSULE PO SCH (07:27)
[2021-05-18] MEDS: Sennosides/Docusate Sodium TABLET PO SCH (07:27)
[2021-05-18] MEDS: Aspirin Enteric Coated 81 MG Tablet PO SCH (07:27)
[2021-05-18 08:54] LABS: Albumin 3.6 g/dL (3.5-5.7); Bilirubin,Total 0.6 mg/dL (0.3-1.0); Calcium 8.8 mg/dL (8.6-10.3); Magnesium 1.4 mg/dL (1.6-2.6); Potassium 4.1 mEq/L (3.5-5.1); Total Protein 6.1 g/dL (6.4-8.9)
[2021-05-18 08:55] LABS: Albumin/Globulin Ratio 1.4 (1.1-2.2); Globulin 2.5 g/dL (2.4-3.5)
[2021-05-18] MEDS: QUEtiapine Fumarate 25 MG TABLET PO SCH ×2 (09:57→20:11)
[2021-05-18] MEDS: Ringers Solution, Lactated 1,000 ML IVC SCH (12:56)
[2021-05-18] MEDS: hydrOXYzine pamoate 25 MG CAPSULE PO SCH (20:11)
[2021-05-18] MEDS: Mirtazapine 15 MG TABLET PO SCH (20:12)
[2021-05-19] MEDS: Ringers Solution, Lactated 1,000 ML IVC SCH (02:20)
[2021-05-19 04:02] LABS: Basophils % 0.6 %; Eosinophils # 0.2 K/mcL (0.0-0.6); Eosinophils % 3.1 %; Hematocrit 27.4 % (37.5-50.1); Hemoglobin 8.6 g/dL (12.9-16.9); Immature Granulocytes % 0.3 % (0-4); Lymphocytes # 1.3 K/mcL (0.6-4.6); Lymphocytes % 19.7 %; Mean Corpuscular HGB Conc 31.4 g/dL (31.6-35.5); Mean Corpuscular Hemoglobin 28.5 pg (28.0-33.3); Mean Corpuscular Volume 90.7 fL (83.0-100.0); Mean Platelet Volume 9.8 fL (9.4-12.4); Monocytes # 0.5 K/mcL (0.0-1.3); Monocytes % 7.4 %; Neutrophils # 4.4 K/mcL (1.6-8.9); Platelet Count 179 K/mcL (140-400); Red Blood Count 3.02 M/mcL (4.19-5.50); Red Cell Distribution Width 14.5 % (11.5-14.5); Segmented Neutrophils % 68.9 %; White Blood Count 6.5 K/mcL (4.3-11.1)
[2021-05-19 04:25] LABS: Alanine Aminotransferase 17 Units/L (7-52); Albumin 3.8 g/dL (3.5-5.7); Albumin/Globulin Ratio 1.5 (1.1-2.2); Alkaline Phosphatase 68 Units/L (34-104); Aspartate Amino Transferase 20 Units/L (13-39); BUN/Creatinine Ratio 20 (6-26); Bilirubin,Total 0.7 mg/dL (0.3-1.0); Blood Urea Nitrogen 23 mg/dL (8-23); Calcium 8.8 mg/dL (8.6-10.3); Carbon Dioxide 23 mEq/L (23-29); Chloride 106 mEq/L (98-107); Globulin 2.5 g/dL (2.4-3.5); Glucose 143 mg/dL (70-105); Magnesium 1.3 mg/dL (1.6-2.6); Osmolality,Calculated 292 (280-300); Phosphorous 2.9 mg/dL (2.7-4.5); Sodium 138 mEq/L (136-145); Total Protein 6.3 g/dL (6.4-8.9); eGFR For African Americans > 60 (> 60); eGFR For Non-African Americans > 60 (> 60)
[2021-05-19] MEDS: Cholecalciferol (D-3) 1,000 UNIT (25MCG) TABLET PO SCH (08:38)
[2021-05-19] MEDS: PARoxetine 20 MG TABLET PO SCH (08:39)
[2021-05-19] MEDS: Magnesium Oxide 400 MG TABLET PO SCH ×2 (08:39→20:34)
[2021-05-19] MEDS: QUEtiapine Fumarate 25 MG TABLET PO SCH ×2 (08:39→20:35)
[2021-05-19] MEDS: Sennosides/Docusate Sodium TABLET PO SCH (08:39)
[2021-05-19] MEDS: calcitrioL 0.25 MCG CAPSULE PO SCH (08:39)
[2021-05-19] MEDS: Aspirin Enteric Coated 81 MG Tablet PO SCH (08:39)
[2021-05-19] MEDS: Insulin LISPRO 300 UNITS/3 ML VIAL SUBQ SCH ×4 (08:41→20:40)
[2021-05-19 10:11] LABS: % Iron Saturation 61 % (20-55); Transferrin 119 mg/dL (200-400)
[2021-05-19] MEDS: Mirtazapine 15 MG TABLET PO SCH (20:34)
[2021-05-19] MEDS: hydrOXYzine pamoate 25 MG CAPSULE PO SCH (20:34)
[2021-05-20 02:53] LABS: BUN/Creatinine Ratio 16 (6-26); Blood Urea Nitrogen 20 mg/dL (8-23); Calcium 8.6 mg/dL (8.6-10.3); Carbon Dioxide 25 mEq/L (23-29); Chloride 103 mEq/L (98-107); Glucose 131 mg/dL (70-105); Magnesium 1.5 mg/dL (1.6-2.6); Osmolality,Calculated 286 (280-300); Phosphorous 2.5 mg/dL (2.7-4.5); Potassium 4.1 mEq/L (3.5-5.1); Sodium 136 mEq/L (136-145); eGFR For African Americans > 60 (> 60); eGFR For Non-African Americans > 60 (> 60)
[2021-05-20] MEDS: Aspirin Enteric Coated 81 MG Tablet PO SCH (08:29)
[2021-05-20] MEDS: Acetaminophen 325 MG TABLET PO PRN ×2 (08:29→20:42)
[2021-05-20] MEDS: calcitrioL 0.25 MCG CAPSULE PO SCH (08:30)
[2021-05-20] MEDS: Cholecalciferol (D-3) 1,000 UNIT (25MCG) TABLET PO SCH (08:30)
[2021-05-20] MEDS: Magnesium Oxide 400 MG TABLET PO SCH ×2 (08:30→19:48)
[2021-05-20] MEDS: QUEtiapine Fumarate 25 MG TABLET PO SCH ×2 (08:30→19:48)
[2021-05-20] MEDS: PARoxetine 20 MG TABLET PO SCH (08:31)
[2021-05-20] MEDS: Sennosides/Docusate Sodium TABLET PO SCH (08:31)
[2021-05-20] MEDS: Insulin LISPRO 300 UNITS/3 ML VIAL SUBQ SCH ×4 (08:32→19:51)
[2021-05-20] MEDS: Gabapentin 100 MG CAPSULE PO SCH ×3 (10:53→19:49)
[2021-05-20] MEDS: amLODIPine 5 MG TABLET PO SCH (10:55)
[2021-05-20] MEDS: Mirtazapine 15 MG TABLET PO SCH (19:48)
[2021-05-20] MEDS: hydrOXYzine pamoate 25 MG CAPSULE PO SCH (19:48)
[2021-05-20] MEDS ORDERED: Capsaicin 0.025% 60 GM TUBE TP PRN (20:16)
[2021-05-21 06:40] LABS: BUN/Creatinine Ratio 16 (6-26); Blood Urea Nitrogen 19 mg/dL (8-23); Calcium 9.2 mg/dL (8.6-10.3); Carbon Dioxide 29 mEq/L (23-29); Chloride 100 mEq/L (98-107); Glucose 162 mg/dL (70-105); Magnesium 1.7 mg/dL (1.6-2.6); Osmolality,Calculated 284 (280-300); Phosphorous 3.6 mg/dL (2.7-4.5); Potassium 4.6 mEq/L (3.5-5.1); Sodium 134 mEq/L (136-145); eGFR For African Americans > 60 (> 60); eGFR For Non-African Americans > 60 (> 60)
[2021-05-21] MEDS: Insulin LISPRO 300 UNITS/3 ML VIAL SUBQ SCH ×4 (09:02→20:25)
[2021-05-21] MEDS: Magnesium Oxide 400 MG TABLET PO SCH ×2 (09:16→20:22)
[2021-05-21] MEDS: Cholecalciferol (D-3) 1,000 UNIT (25MCG) TABLET PO SCH (09:16)
[2021-05-21] MEDS: Aspirin Enteric Coated 81 MG Tablet PO SCH (09:16)
[2021-05-21] MEDS: Sennosides/Docusate Sodium TABLET PO SCH (09:16)
[2021-05-21] MEDS: QUEtiapine Fumarate 25 MG TABLET PO SCH ×2 (09:17→20:21)
[2021-05-21] MEDS: amLODIPine 5 MG TABLET PO SCH (09:17)
[2021-05-21] MEDS: calcitrioL 0.25 MCG CAPSULE PO SCH (09:17)
[2021-05-21] MEDS: Gabapentin 100 MG CAPSULE PO SCH ×3 (09:17→20:20)
[2021-05-21] MEDS: PARoxetine 20 MG TABLET PO SCH (09:17)
[2021-05-21] MEDS: Mirtazapine 15 MG TABLET PO SCH (20:20)
[2021-05-21] MEDS: hydrOXYzine pamoate 25 MG CAPSULE PO SCH (20:21)
[2021-05-22] MEDS: Insulin LISPRO 300 UNITS/3 ML VIAL SUBQ SCH ×2 (08:30→11:53)
[2021-05-22] MEDS: Sennosides/Docusate Sodium TABLET PO SCH (08:31)
[2021-05-22] MEDS: QUEtiapine Fumarate 25 MG TABLET PO SCH (08:32)
[2021-05-22] MEDS: Cholecalciferol (D-3) 1,000 UNIT (25MCG) TABLET PO SCH (08:32)
[2021-05-22] MEDS: calcitrioL 0.25 MCG CAPSULE PO SCH (08:32)
[2021-05-22] MEDS: amLODIPine 5 MG TABLET PO SCH (08:32)
[2021-05-22] MEDS: Gabapentin 100 MG CAPSULE PO SCH ×2 (08:32→15:16)
[2021-05-22] MEDS: PARoxetine 20 MG TABLET PO SCH (08:32)
[2021-05-22] MEDS: Magnesium Oxide 400 MG TABLET PO SCH (08:32)
[2021-05-22] MEDS: Aspirin Enteric Coated 81 MG Tablet PO SCH (08:32)
[2021-05-22 11:14] VITALS: BP 132/84; PULSE 87; TEMP 98.7; O2SAT 96
== END 2021-05-22 15:57 | DRG 683 ==
LOC: 2ANU 07:45 → EMEROOARM 07:45 → SUATTDRO 11:36 → 2ANU 12:11 → SUATTDRO 05-17 13:41
PROVIDERS: ADMIT Pharmacist; ATTEND Internal Medicine

== ENCOUNTER 2021-06-09 20:41 | Inpatient (IN) ==
[2021-06-09] MEDS ORDERED: Isovue-370 500 ML BOTTLE IVP ONE (20:50)
[2021-06-09 21:23] LABS: Basophils # 0.1 K/mcL (0.0-0.2); Basophils % 0.3 %; Hematocrit 34.2 % (37.5-50.1); Immature Granulocytes % 2.5 % (0-4); Lymphocytes # 1.7 K/mcL (0.6-4.6); Lymphocytes % 7.1 %; Mean Corpuscular HGB Conc 32.2 g/dL (31.6-35.5); Mean Corpuscular Hemoglobin 29.7 pg (28.0-33.3); Mean Corpuscular Volume 92.4 fL (83.0-100.0); Mean Platelet Volume 9.2 fL (9.4-12.4); Monocytes # 1.3 K/mcL (0.0-1.3); Monocytes % 5.7 %; Neutrophils # 19.9 K/mcL (1.6-8.9); Platelet Count 383 K/mcL (140-400); Segmented Neutrophils % 84.4 %; White Blood Count 23.6 K/mcL (4.3-11.1)
[2021-06-09 21:30] LABS: INR 1.3; Prothrombin Time 14.2 Seconds (9.4-12.1)
[2021-06-09 21:33] LABS: Activated Partial Thrombo Time 30.6 Seconds (26.0-36.0)
[2021-06-09 21:55] LABS: Albumin 3.2 g/dL (3.5-5.7); Albumin/Globulin Ratio 0.8 (1.1-2.2); Bilirubin,Total 0.6 mg/dL (0.3-1.0); Calcium 8.3 mg/dL (8.6-10.3); Globulin 3.8 g/dL (2.4-3.5); Potassium 5.8 mEq/L (3.5-5.1); Troponin I 0.03 ng/mL (< 0.04)
[2021-06-09 21:56] LABS: Bilirubin,Urine Negative (Negative); Blood,Urine Small (Negative); Clarity,Urine Clear (Clear); Color,Urine Yellow (Yellow); Glucose,Urine (UA) Normal (Normal); Hyaline Casts,Urine Few per lpf (None Seen); Ketones,Urine Trace mg/dL (Negative); Leukocyte Esterase,Urine Negative (Negative); Mucus,Urine Few per lpf (None-Few); Nitrite,Urine Negative (Negative); PH,Urine 5.5 pH Units (5.0-8.0); Protein,Urine 50 mg/dL (Neg-Trace); Specific Gravity,Urine 1.021 (1.010-1.025); Urobilinogen,Urine Normal (Normal); WBC,Urine 0-3 per hpf (0-3)
[2021-06-09] MEDS ORDERED: 0.9 % Sodium Chloride 1,000 ML IV ONE ×2 (22:03→22:07)
[2021-06-09] MEDS ORDERED: Desitin (Zinc Oxide) 56 GM TUBE TP ONE (23:09)
[2021-06-09] MEDS ORDERED: Sodium Bicarbonate 75 MEQ in 0.45 % Sodium Chloride 1,000 ML IVC SCH (23:45)
[2021-06-09] MEDS ORDERED: Melatonin 3 MG TABLET PO PRN (23:53)
[2021-06-09] MEDS ORDERED: Naloxone 0.4 MG/ML INJ IVP PRN (23:53)
[2021-06-10] MEDS ORDERED: Insulin Human Regular 10 UNIT in 0.9 % Sodium Chloride 10 ML IV ONE (00:03)
[2021-06-10] MEDS ORDERED: Dextrose Gel 15 GM/37.5 ML TUBE PO PRN ×2 (00:13)
[2021-06-10] MEDS ORDERED: D5% in Water 1,000 ML IVC PRN (00:13)
[2021-06-10] MEDS ORDERED: *HR* Dextrose 50 % in Water (Syg) 50 ML SYRINGE IVP PRN (00:13)
[2021-06-10 00:22] LABS: Magnesium 1.6 mg/dL (1.6-2.6)
[2021-06-10 00:34] LABS: Influenza A PCR Negative (Negative); Influenza B PCR Negative (Negative); Resp. Syncytial Virus PCR Negative (Negative)
[2021-06-10 00:37] LABS: SARS-CoV-2 by PCR (In House) Negative (Negative)
[2021-06-10] MEDS ORDERED: *HR* Dextrose 50 % in Water (Syg) 50 ML SYRINGE IVP ONE (00:45)
[2021-06-10] MEDS ORDERED: Vancomycin 1,500 MG/265 ML IV.SOLN IVPB ONE (03:00)
[2021-06-10] MEDS ORDERED: Cefepime HCl 1,000 MG in Water for inj. (sterile) 10 ML IVP SCH (03:00)
[2021-06-10 05:21] LABS: Albumin 2.7 g/dL (3.5-5.7); Albumin/Globulin Ratio 0.9 (1.1-2.2); Bilirubin,Total 0.6 mg/dL (0.3-1.0); Calcium 7.7 mg/dL (8.6-10.3); Globulin 3.1 g/dL (2.4-3.5); Magnesium 1.6 mg/dL (1.6-2.6); Phosphorous 8.8 mg/dL (2.7-4.5); Potassium 5.6 mEq/L (3.5-5.1); Total Protein 5.8 g/dL (6.4-8.9)
[2021-06-10] MEDS ORDERED: Sodium Bicarbonate 50 MEQ/50 ML VIAL IVP ONE (05:24)
[2021-06-10 06:03] LABS: Thyroid Stimulating Hormone 0.997 mcIU/mL (0.340-5.600); Troponin I < 0.03 ng/mL (< 0.04)
[2021-06-10] MEDS: Insulin LISPRO 300 UNITS/3 ML VIAL SUBQ SCH ×4 (09:17→20:09)
[2021-06-10] MEDS: SODIUM ZIRCONIUM CYCLOSILICATE 5 GM POWD.PACK PO SCH (09:32)
[2021-06-10] MEDS ORDERED: 0.9 % Sodium Chloride 1,000 ML IVC SCH (14:00)
[2021-06-10] MEDS ORDERED: Sodium Bicarbonate 150 MEQ in D5% in Water 1,000 ML IVC SCH (14:30)
[2021-06-10 14:40] LABS: Basophils % 0.2 %; Eosinophils % 0.1 %; Hematocrit 29.6 % (37.5-50.1); Immature Granulocytes % 1.3 % (0-4); Lymphocytes # 0.8 K/mcL (0.6-4.6); Mean Corpuscular HGB Conc 31.4 g/dL (31.6-35.5); Mean Corpuscular Hemoglobin 28.9 pg (28.0-33.3); Mean Corpuscular Volume 91.9 fL (83.0-100.0); Mean Platelet Volume 9.3 fL (9.4-12.4); Monocytes % 8.3 %; Neutrophils # 9.9 K/mcL (1.6-8.9); Platelet Count 277 K/mcL (140-400); Red Blood Count 3.22 M/mcL (4.19-5.50); Red Cell Distribution Width 17.2 % (11.5-14.5); Segmented Neutrophils % 83.1 %; White Blood Count 11.9 K/mcL (4.3-11.1)
[2021-06-10 14:58] LABS: Hemoglobin 9.3 g/dL (12.9-16.9)
[2021-06-10 15:05] LABS: Creatine Kinase 2868 Units/L (30-223)
[2021-06-10] MEDS: Cefepime HCl 1,000 MG in Water for inj. (sterile) 10 ML IVP SCH (15:18)
[2021-06-10 15:32] LABS: Hepatitis B Surface Antigen Nonreactive (Nonreactive)
[2021-06-10 16:03] LABS: Hepatitis C Virus Antibody Nonreactive (Nonreactive)
[2021-06-10 16:05] LABS: Hepatitis A Antibody IgM Nonreactive (Nonreactive)
[2021-06-10 16:06] LABS: Hepatitis B Core IgM Nonreactive (Nonreactive)
[2021-06-10] MEDS ORDERED: Gadolinium Contrast Agent (WT Based) IV PRN (16:29)
[2021-06-10 17:19] LABS: Lipase 5 Units/L (11-82)
[2021-06-10 23:02] LABS: Bilirubin,Urine Negative (Negative); Blood,Urine Trace (Negative); Clarity,Urine Clear (Clear); Color,Urine Yellow (Yellow); Glucose,Urine (UA) Normal (Normal); Hyaline Casts,Urine Few per lpf (None Seen); Ketones,Urine 10 mg/dL (Negative); Leukocyte Esterase,Urine Negative (Negative); Mucus,Urine Few per lpf (None-Few); Nitrite,Urine Negative (Negative); PH,Urine 5.5 pH Units (5.0-8.0); Protein,Urine 30 mg/dL (Neg-Trace); RBC,Urine 0-3 per hpf (0-3); Specific Gravity,Urine 1.018 (1.010-1.025); Urobilinogen,Urine Normal (Normal)
[2021-06-11] MEDS: Cefepime HCl 1,000 MG in Water for inj. (sterile) 10 ML IVP SCH (03:45)
[2021-06-11] MEDS: Insulin LISPRO 300 UNITS/3 ML VIAL SUBQ SCH ×4 (07:27→20:36)
[2021-06-11 07:50] LABS: Basophils % 0.3 %; Eosinophils % 0.1 %; Hematocrit 24.6 % (37.5-50.1); Immature Granulocytes % 1.6 % (0-4); Lymphocytes # 0.9 K/mcL (0.6-4.6); Lymphocytes % 11.1 %; Mean Corpuscular HGB Conc 31.3 g/dL (31.6-35.5); Mean Corpuscular Hemoglobin 29.1 pg (28.0-33.3); Mean Corpuscular Volume 92.8 fL (83.0-100.0); Mean Platelet Volume 9.3 fL (9.4-12.4); Monocytes # 0.7 K/mcL (0.0-1.3); Monocytes % 8.8 %; Neutrophils # 6.3 K/mcL (1.6-8.9); Platelet Count 215 K/mcL (140-400); Red Blood Count 2.65 M/mcL (4.19-5.50); Red Cell Distribution Width 17.8 % (11.5-14.5); Segmented Neutrophils % 78.1 %
[2021-06-11 08:22] LABS: Albumin 2.7 g/dL (3.5-5.7); Albumin/Globulin Ratio 0.9 (1.1-2.2); Bilirubin,Total 0.5 mg/dL (0.3-1.0); Calcium 7.9 mg/dL (8.6-10.3); Potassium 3.9 mEq/L (3.5-5.1); Total Protein 5.7 g/dL (6.4-8.9)
[2021-06-11 08:36] LABS: Hemoglobin 7.7 g/dL (12.9-16.9)
[2021-06-11] MEDS ORDERED: Vancomycin 1,500 MG/265 ML IV.SOLN IVPB ONE (11:00)
[2021-06-11] MEDS ORDERED: GADOBUTROL 30 MMOL/30 ML VIAL IVP ONE (12:12)
[2021-06-11] MEDS: Pantoprazole 40 MG VIAL IVP SCH (16:33)
[2021-06-11] MEDS: Cefepime HCl 2,000 MG in 0.9 % Sodium Chloride Mini Bag 100 ML IVPB SCH (16:34)
[2021-06-11 17:11] LABS: Hematocrit 26.9 % (37.5-50.1); Hemoglobin 8.8 g/dL (12.9-16.9)
[2021-06-11 17:35] LABS: Estimated Average Glucose 154 mg/dl
[2021-06-11 18:56] LABS: Folate 7.8 ng/mL (3.0-16.0)
[2021-06-12 04:47] LABS: Basophils % 0.4 %; Eosinophils # 0.1 K/mcL (0.0-0.6); Eosinophils % 1.6 %; Hematocrit 27.6 % (37.5-50.1); Hemoglobin 8.9 g/dL (12.9-16.9); Immature Granulocytes % 3.1 % (0-4); Lymphocytes % 14.6 %; Mean Corpuscular HGB Conc 32.2 g/dL (31.6-35.5); Mean Corpuscular Hemoglobin 29.1 pg (28.0-33.3); Mean Corpuscular Volume 90.2 fL (83.0-100.0); Mean Platelet Volume 9.2 fL (9.4-12.4); Monocytes # 0.6 K/mcL (0.0-1.3); Monocytes % 9.1 %; Platelet Count 199 K/mcL (140-400); Red Blood Count 3.06 M/mcL (4.19-5.50); Red Cell Distribution Width 16.9 % (11.5-14.5); Segmented Neutrophils % 71.2 %
[2021-06-12] MEDS: Pantoprazole 40 MG VIAL IVP SCH ×2 (05:10→18:44)
[2021-06-12] MEDS: Cefepime HCl 2,000 MG in 0.9 % Sodium Chloride Mini Bag 100 ML IVPB SCH (05:11)
[2021-06-12 05:26] LABS: Alanine Aminotransferase 68 Units/L (7-52); Albumin 2.7 g/dL (3.5-5.7); Albumin/Globulin Ratio 0.9 (1.1-2.2); Alkaline Phosphatase 128 Units/L (34-104); Aspartate Amino Transferase 62 Units/L (13-39); BUN/Creatinine Ratio 43 (6-26); Bilirubin,Total 0.5 mg/dL (0.3-1.0); Blood Urea Nitrogen 62 mg/dL (8-23); Calcium 7.9 mg/dL (8.6-10.3); Carbon Dioxide 27 mEq/L (23-29); Chloride 107 mEq/L (98-107); Creatine Kinase 1598 Units/L (30-223); Globulin 3.1 g/dL (2.4-3.5); Glucose 332 mg/dL (70-105); Osmolality,Calculated 323 (280-300); Potassium 3.6 mEq/L (3.5-5.1); Sodium 141 mEq/L (136-145); Total Protein 5.8 g/dL (6.4-8.9); eGFR For African Americans > 60 (> 60); eGFR For Non-African Americans 50 (> 60)
[2021-06-12] MEDS ORDERED: Vancomycin 1,500 MG/265 ML IV.SOLN IVPB SCH (09:00)
[2021-06-12] MEDS: Insulin LISPRO 300 UNITS/3 ML VIAL SUBQ SCH ×4 (09:49→21:16)
[2021-06-12] MEDS: cefTRIAXone 2,000 MG in 0.9 % Sodium Chloride Mini Bag 100 ML IVPB SCH (18:45)
[2021-06-12] MEDS: QUEtiapine Fumarate 25 MG TABLET PO SCH (21:14)
[2021-06-13] MEDS: Insulin DETEMIR 100 UNIT/ML X5UNITS SUBQ SCH ×2 (00:16→20:36)
[2021-06-13] MEDS: Pantoprazole 40 MG VIAL IVP SCH (05:07)
[2021-06-13 05:28] LABS: Basophils % 0.4 %; Eosinophils # 0.1 K/mcL (0.0-0.6); Hemoglobin 8.4 g/dL (12.9-16.9); Immature Granulocytes % 4.8 % (0-4); Lymphocytes # 1.2 K/mcL (0.6-4.6); Lymphocytes % 22.3 %; Mean Corpuscular HGB Conc 32.3 g/dL (31.6-35.5); Mean Corpuscular Hemoglobin 29.4 pg (28.0-33.3); Mean Corpuscular Volume 90.9 fL (83.0-100.0); Mean Platelet Volume 9.4 fL (9.4-12.4); Monocytes # 0.5 K/mcL (0.0-1.3); Monocytes % 8.8 %; Neutrophils # 3.4 K/mcL (1.6-8.9); Platelet Count 181 K/mcL (140-400); Red Blood Count 2.86 M/mcL (4.19-5.50); Red Cell Distribution Width 16.6 % (11.5-14.5); Segmented Neutrophils % 61.7 %; White Blood Count 5.6 K/mcL (4.3-11.1)
[2021-06-13 06:11] LABS: Alanine Aminotransferase 41 Units/L (7-52); Albumin 2.1 g/dL (3.5-5.7); Albumin/Globulin Ratio 0.8 (1.1-2.2); Alkaline Phosphatase 89 Units/L (34-104); Aspartate Amino Transferase 29 Units/L (13-39); BUN/Creatinine Ratio 44 (6-26); Bilirubin,Total 0.3 mg/dL (0.3-1.0); Blood Urea Nitrogen 37 mg/dL (8-23); Calcium 6.4 mg/dL (8.6-10.3); Carbon Dioxide 25 mEq/L (23-29); Chloride 102 mEq/L (98-107); Creatine Kinase 738 Units/L (30-223); Globulin 2.5 g/dL (2.4-3.5); Glucose 171 mg/dL (70-105); Osmolality,Calculated 285 (280-300); Potassium 3.8 mEq/L (3.5-5.1); Sodium 131 mEq/L (136-145); Total Protein 4.6 g/dL (6.4-8.9); eGFR For African Americans > 60 (> 60); eGFR For Non-African Americans > 60 (> 60)
[2021-06-13] MEDS: QUEtiapine Fumarate 25 MG TABLET PO SCH ×2 (08:38→20:36)
[2021-06-13] MEDS: Aspirin Enteric Coated 81 MG Tablet PO SCH (08:38)
[2021-06-13] MEDS: Cyanocobalamin (B-12) 1,000 MCG TABLET PO SCH (08:38)
[2021-06-13] MEDS: PARoxetine 20 MG TABLET PO SCH (08:38)
[2021-06-13] MEDS: Folic Acid 1 MG TABLET PO SCH (08:39)
[2021-06-13] MEDS: Insulin LISPRO 300 UNITS/3 ML VIAL SUBQ SCH ×4 (08:39→20:35)
[2021-06-13] MEDS: cefTRIAXone 2,000 MG in 0.9 % Sodium Chloride Mini Bag 100 ML IVPB SCH (17:52)
[2021-06-14] MEDS: Insulin LISPRO 300 UNITS/3 ML VIAL SUBQ SCH ×2 (08:21→11:15)
[2021-06-14] MEDS: Aspirin Enteric Coated 81 MG Tablet PO SCH (08:25)
[2021-06-14] MEDS: PARoxetine 20 MG TABLET PO SCH (08:25)
[2021-06-14] MEDS: Cyanocobalamin (B-12) 1,000 MCG TABLET PO SCH (08:26)
[2021-06-14] MEDS: Folic Acid 1 MG TABLET PO SCH (08:26)
[2021-06-14] MEDS: QUEtiapine Fumarate 25 MG TABLET PO SCH (08:26)
[2021-06-14 11:06] VITALS: BP 158/90; PULSE 65; TEMP 97.7; O2SAT 99
== END 2021-06-14 15:10 | DRG 871 ==
LOC: 2ANU 20:41 → EMEROOARM 20:41 → SUATTDRO 06-10 00:13 → 2ANU 06-10 01:10
PROVIDERS: ADMIT Internal Medicine; ATTEND General Practice